=== PATIENT | male | born 1935 | race Caucasian/White ===

== ENCOUNTER → 2016-12-10 | Outpatient (CLI) | payer OTHER, MEDICARE | LOC: BHCLAF 10:45 | PROVIDERS: ATTEND Internal Medicine Cardiovascular Disease | DX: I35.0 Nonrheumatic aortic (valve) stenosis (principal); I10 Essential (primary) hypertension | CPT/HCPCS: 93306-PO ==

== ENCOUNTER 2016-12-27 08:36 | Day surgery (SDC) | payer OTHER, MEDICARE ==
[2016-12-27] MEDS ORDERED: BENZOCAINE UNIT DOSE SPRAY HURRICAINE MM ONE (08:38)
[2016-12-27] MEDS ORDERED: fentaNYL 100 MCG/2 ML INJ IVP ONE (08:38)
[2016-12-27] MEDS ORDERED: MIDAZOLAM 2 MG/2 ML VIAL IVP ONE (08:38)
[2016-12-27] MEDS ORDERED: NS 1,000 ML IV ONE (08:38)
[2016-12-27] MEDS ORDERED: MIDAZOLAM 2 MG/2 ML VIAL ONE (09:23)
[2016-12-27] MEDS ORDERED: fentaNYL 100 MCG/2 ML INJ ONE (09:23)
[2016-12-27] MEDS ORDERED: ATROPINE SULFATE 1 MG/10 ML SYR ONE (09:24)
--- NOTE | 2017-01-01 11:14 | ECHO ---
[id number] + + [address] : : [facility] [address] : : [phone] + Transesophageal Echocardiographic Report + --------+ :Name: JOHN JIMENEZ VStudy Date: 12/27/2016 09:45 AM : : Hospital Admission Number: [id number] Locat ion: CVC: :: 1935 Gender: Male : :Age: 81 yrs Race: WH : :Reason For Study: evaluate MR and TR : :History: MR and TR : + --------+ LV The left ventricle is normal in size and function. There is mild to moderate concentric left ventricular hypertrophy. Hypertrophied papillary muscles noted. RV The right ventricle is normal size. Atria Bi-atrial enlargement. No thrombus is detected in the left atrial appendage. Injection of contrast documented no interatrial shunt. Mitral Valve Mitral leaflets are redunadant and the posterior leaflet appears to prolapse into LA. Calcified mitral apparatus. The mitral regurgitant jet is eccentrically directed. There is moderate to severe mitral regurgitation. Aortic Valve The aortic valve is trileaflet. Mild-Moderate Aortic Valve Calcification. There is no aortic insufficiency. Pulmonic Valve The pulmonic valve is normal in structure and function. Mild pulmonic valvular regurgitation. Tricuspid Valve The tricuspid valve is normal in structure and function. There is moderate tricuspid regurgitation. Vessels Mild atherosclerotic plaque(s) in the ascending aorta. Pericardium There is no pericardial effusion. Conclusion A 2D transesophageal echocardiogram with Doppler and color flow Doppler was performed. A bubble study was performed without evidence of a interatrial shunt. The left ventricle is normal in size and function. There is mild to moderate concentric left ventricular hypertrophy. Hypertrophied papillary muscles noted. Bi-atrial enlargement. No thrombus is detected in the left atrial appendage. Injection of contrast documented no interatrial shunt. Mitral leaflets are redunadant and the posterior leaflet appears to prolapse into LA. There is moderate to severe mitral regurgitation. Mild pulmonic valvular regurgitation. There is moderate tricuspid regurgitation. Final Reading Physician: Meredith Stevens signed on 01/01/2017 11:12 AM Ordering Physician: Frank Wisdom Performed By: Frank Wisdom MD
== END 2016-12-27 12:05 | disposition home or self-care (01) ==
LOC: FCATH 08:36
PROVIDERS: ATTEND Internal Medicine Cardiovascular Disease
PROC: B245ZZ4 Ultrasonography of Left Heart, Transesophageal (ICD-10-PCS; principal; 2016-12-27)
DX: I34.0 Nonrheumatic mitral (valve) insufficiency (principal); I35.2 Nonrheumatic aortic (valve) stenosis with insufficiency; I07.1 Rheumatic tricuspid insufficiency; I71.4 Abdominal aortic aneurysm, without rupture; I25.10 Atherosclerotic heart disease of native coronary artery without angina pectoris; I10 Essential (primary) hypertension; R01.1 Cardiac murmur, unspecified; I27.2 Other secondary pulmonary hypertension; E78.5 Hyperlipidemia, unspecified; Z82.49 Family history of ischemic heart disease and other diseases of the circulatory system
CPT/HCPCS: J0461; J2250; J3010

== ENCOUNTER → 2017-01-21 | Outpatient (CLI) | payer OTHER, MEDICARE | LOC: BHFA 11:30 | PROVIDERS: ATTEND Internal Medicine Cardiovascular Disease | DX: R00.2 Palpitations (principal); R06.02 Shortness of breath; R07.9 Chest pain, unspecified ==

== ENCOUNTER 2017-03-07 07:49 | Day surgery (SDC) | payer OTHER, MEDICARE ==
[2017-03-07] MEDS ORDERED: ASPIRIN EC 325 MG TAB PO ONE (08:03)
[2017-03-07] MEDS ORDERED: FAMOTIDINE 20 MG TAB PO ONE (08:03)
[2017-03-07] MEDS ORDERED: NS 1,000 ML IV ONE (08:03)
[2017-03-07] MEDS ORDERED: DIAZEPAM 5 MG TAB PO ONE (08:03)
[2017-03-07] MEDS ORDERED: diphenhydrAMINE 25 MG CAP PO ONE (08:03)
[2017-03-07] MEDS ORDERED: LIDOCAINE 1% 30 ML SDV ONE (08:28)
[2017-03-07] MEDS ORDERED: IOPAMIDOL (ISOVUE 370) 100 ML BTL IV ONE (08:29)
[2017-03-07] MEDS ORDERED: MIDAZOLAM 2 MG/2 ML VIAL ONE (08:29)
[2017-03-07] MEDS ORDERED: fentaNYL 100 MCG/2 ML INJ ONE (08:29)
--- NOTE | 2017-03-07 08:29 | CPEKG ---
Heart Rate: 65 RR Interval: 923 P-R Interval: 172 QRSD Interval: 90 QT Interval: 408 QTC Interval: 425 P [place]: 52 QRS [place]: -2 T Wave [place]: 38 EKG Severity - ABNORMAL ECG - EKG Impression: SINUS RHYTHM EKG Impression: PROBABLE LEFT ATRIAL ABNORMALITY EKG Impression: PROBABLE LEFT VENTRICULAR HYPERTROPHY Electronically Signed By: Frank Wisdom 08-Mar-2017 12:43:40
[2017-03-07 08:39] LABS: % IMMATURE GRANULYOCYTES 0.2 % (0.0-1.1); ABSOLUTE IMMATURE GRANULOCYTES 0.01 10^3/uL (0.00-0.10); ADD DIFF? NO; ADD MORPH? NO; ADD SCAN? NO; ATYPICAL LYMPHOCYTE FLAG 60 (0-99); FRAGMENT RBC FLAG 0 (0-99); HEMATOCRIT 44.6 % (40.0-51.0); HEMOGLOBIN 15.8 g/dL (13.7-17.5); LEFT SHIFT FLG 0 (0-99); LIPEMIA HEMOLYSIS FLAG 90 (0-99); MEAN CELL HEMOGLOBIN 34.5 pg (27.9-34.1); MEAN CELL HEMOGLOBIN CONCENTR. 35.4 g/dL (32.4-36.7); MEAN CELL VOLUME 97.4 fL (81.5-99.8); MEAN PLATELET VOLUME 9.9 fL (8.7-11.7); PLATELET CLUMPS FLAG 0 (0-99); PLATELET COUNT 145 10^3/uL (150-400); RED BLOOD CELL COUNT 4.58 10^6/uL (4.40-6.38); RED CELL DISTRIBUTION WIDTH 13.2 % (11.5-15.2)
[2017-03-07 08:48] LABS: INR 1.01 (0.83-1.16); PROTIME(PATIENT) 13.2 SEC (12.0-15.0)
[2017-03-07 09:02] LABS: ANION GAP 9 mEq/L (8-16); CALCIUM 9.6 mg/dL (8.5-10.4); CARBON DIOXIDE 24 mEq/l (22-31); CHLORIDE 107 mEq/L (97-110); CHOLESTEROL 195 mg/dL (140-220); CHOLESTEROL/HDL RATIO 2.95 RATIO (1.00-4.97); GLOMERULAR FILTRATION RATE > 60; GLUCOSE 82 mg/dL (70-100); HIGH DENSITY LIPOPROTEIN 66 mg/dL (40-65); LDL/HDL RATIO 1.67 RATIO (1.00-3.64); LOW DENSITY LIPOPROTEIN 110 mg/dL (80-100); MAGNESIUM 2.1 mg/dL (1.6-2.3); NON-HIGH DENSITY LIPOPROTEIN 129 mg/dL (90-129); POTASSIUM 4.3 mEq/L (3.5-5.2); SODIUM 140 mEq/L (134-144); TRIGLYCERIDE 99 mg/dL (40-150); VERY LOW DENSITY LIPOPROTEINS 19 mg/dL (8-25)
[2017-03-07] MEDS ORDERED: ATROPINE SULFATE 1 MG/10 ML SYR IVP PRN (10:52)
[2017-03-07] MEDS ORDERED: OXYCODONE/APAP 5/325 TAB PO PRN (10:52)
[2017-03-07] MEDS ORDERED: ONDANSETRON 4 MG/2 ML VIAL IVP PRN (10:52)
[2017-03-07] MEDS ORDERED: HYDROCODONE/APAP 5/325 TAB PO PRN (10:52)
--- NOTE | 2017-03-07 10:57 | PDDXCAT ---
Diagnostic Cath Note - . Date: 03/07/17 Wedding Florist: Artis Indication: other (pending MVR/AVR surgery) - Procedure Access: right groin Procedure: left heart catheterization, coronary angiography, left ventriculogram , right heart catheterization - Materials Left Heart Cath size: 6F (long sheath was used after tortuosity noted to the venous system) Left Heart Cath materials: standard multipack (JL4, JR4, pigtail), Pal's R Right Heart Cath size: 7F (long sheath was used after tortuosity noted during RHC) Right Heart Cath materials: PWP catheter - Findings-Left Heart Catheterization LM: short, bifurcating into the LAD and LCX vessels. No critical CAD was noted. LAD: Smallish LAD with three diagonals. The second diag was the "principal" vessel, and only slightly smaller than the LAD. A small, 30% lesion was noted to the proximal vessel, just prior to the take off for the diags. Tortuosity was noted distally. LCX: Smallish vessel several small OMs prior to a principal OM2, which was equal in magnitude to the take off from LCX. No appreciable luminal irregularities were noted. RCA: Dominant vessel without luminal irregularities noted. This vessel supplied the PDA system. EDP: did not cross the AoV LVEF: Did not cross the AoV Wall motion: not assessed in this study - Findings-Right Heart Catheterization RA: 8/ RV: 39/3/11 PA: 37/16/24 PAOP: 16 AO: 131/64/93 CO: 3.89 CI: 2.23 Complications: none, but there was moderate tortuosity to the Estimated blood loss: <50ml Closure method: Angioseal Assessment: 81 y/o male with known valve pathology (mitral and aortic) and pending need to have valve surgery. There was moderate tortuosity to the venous system, and the RH cath needed to be exchanged given a kink noted to the catheter. There was no critical CAD noted in this study. We could not pass the catheter or wire through the AoV, and further, aggressive attempts to pass the catheter were abandoned. Plan: Would schedule patient to follow up with cardiology and CT (if scheduled). Patient will also need reassessment of dilation to the infrarenal aorta (2013 CT scan with some dilation <4 cm) noted. No complications were noted, and the patient did well today. We could not pass the AoV, but given the pathology, this was not unexpected. Intervention: none
== END 2017-03-07 15:00 | disposition home or self-care (01) ==
LOC: FCATH 07:49
PROVIDERS: ATTEND Internal Medicine Cardiovascular Disease
PROC: B2151ZZ Fluoroscopy of Left Heart using Low Osmolar Contrast (ICD-10-PCS; principal; 2017-03-07)
PROC: B2111ZZ Fluoroscopy of Multiple Coronary Arteries using Low Osmolar Contrast (ICD-10-PCS; principal; 2017-03-07)
PROC: 4A023N8 Measurement of Cardiac Sampling and Pressure, Bilateral, Percutaneous Approach (ICD-10-PCS; principal; 2017-03-07)
DX: I34.0 Nonrheumatic mitral (valve) insufficiency (principal); I35.9 Nonrheumatic aortic valve disorder, unspecified; I10 Essential (primary) hypertension
CPT/HCPCS: C1760; J1644; J2250; J3010; Q9967

== ENCOUNTER → 2017-04-04 | Outpatient (CLI) | payer OTHER, MEDICARE ==
[~2017-04-04] MED LIST: IOPAMIDOL (ISOVUE 370) 100 ML BTL IV ONE
== END ==
LOC: FIMAGING 12:37
PROVIDERS: ATTEND Internal Medicine Cardiovascular Disease
DX: Z03.89 Encounter for observation for other suspected diseases and conditions ruled out (principal)
CPT/HCPCS: 74175; Q9967

== ENCOUNTER → 2017-12-19 | Outpatient (CLI) | payer OTHER, MEDICARE | LOC: BHCLAF 14:45 | PROVIDERS: ATTEND Internal Medicine Cardiovascular Disease | DX: I05.9 Rheumatic mitral valve disease, unspecified (principal); I35.9 Nonrheumatic aortic valve disorder, unspecified; I25.10 Atherosclerotic heart disease of native coronary artery without angina pectoris | CPT/HCPCS: 93306-PO ==

== ENCOUNTER 2018-01-13 08:34 | Day surgery (SDC) | payer OTHER, MEDICARE ==
[2018-01-13] MEDS ORDERED: BENZOCAINE UNIT DOSE SPRAY HURRICAINE MM ONE (08:42)
[2018-01-13] MEDS ORDERED: fentaNYL 100 MCG/2 ML INJ IVP ONE (08:42)
[2018-01-13] MEDS ORDERED: MIDAZOLAM 2 MG/2 ML VIAL IVP ONE (08:42)
[2018-01-13] MEDS ORDERED: NS 500 ML IV ONE (08:42)
[2018-01-13] MEDS ORDERED: ATROPINE SULFATE 1 MG/10 ML SYR ONE (09:29)
--- NOTE | 2018-01-13 09:47 | PDHPUP ---
History & Physical Update H&P update statement: This history and physical update is based on an assessment of the patient which was completed after admission or registration (within 24 hours), but prior to the surgery/procedure. H&P update: H&P reviewed & patient examined, no change in patient's condition since H&P completed
--- NOTE | 2018-01-13 09:47 | PDPROPOC ---
Sedation Plan of Care Sedation Plan of Care: vital signs stable, mental status noted, patient educated of risks, benefits, alternatives, patient can tolerate sedation ASA Classification: ASA 1 Planned drugs: fentanyl, midazolam Mallampati Score: Class 1 Mallampati Reference Image: Patient passed 3-3-2 rule?: Yes
[2018-01-13 11:37] VITALS: BP 122/76; RESP 14; O2SAT 97
--- NOTE | 2018-01-13 11:47 | PDCARTEE ---
CAR MICHELLE CAR MICHELLE: PROCEDURE: MICHELLE FOR REASSESSMENT OF THE AORTIC AND MITRAL VALVES INDICATIONS: BETTER VISUALIZATION OF THE AORTIC AND MITRAL VALVE PATHOLOGY DETAILS: After consents were signed and patient placed on table on left side, the MICHELLE probe was placed without difficulty, and standard views were obtained. Light sedation with fentanyl and versed were used for facilitate comfort. Standard views were obtained. PRELIMINARY REPORT: Left ventricular systolic ejection fraction was normal (65%). There was severe mitral regurgitation noted with prolapsation of both leaflets. There is severe left atrial dilation noted. Moderate to severe aortic stenosis was also noted with moderate to severe sclerosis. Trace PI, moderate TR. RVSP was estimated to be 35-40 mm Hg. Surface echo images were also to be obtained to better assess the gradients though the aortic valve (patient's valve was off axis for the image that we were able to obtain).
--- NOTE | 2018-01-13 20:17 | ECHO ---
[email or web address] [address] [address] Main: [phone] Fax: Transesophageal Echocardiography Name: JOHN JIMENEZ MR#: [id number] Study Date: 01/13/2018 Study Time: 09:42 AM Date of : 1935 Age: 82 year(s) Height: ( ) Weight: ( ) BSA: Gender: Male Examination: MICHELLE Indication: as/mr Image Quality: Adequate Contrast: Requested by: Frank Wisdom Heart Rate: Rhythm: Normal sinus rhythm BP: 159 mmHg/98 mmHg Procedure Staff General Operator: Opal Leigh [facility] Reading Physician: Frank Wisdom Requesting Provider: MICHELLE Exam Details Conclusions: Normal size left ventricle. Moderate concentric LV hypertrophy. Normal global systolic LV function. Normal size right ventricle. The left atrium is severely dilated. No thrombus in left appendage. Trabeculation noted in AUTUMN.. The right atrium is severely dilated. Moderate mitral valve leaflet calcification is present. There is moderate thickening of the mitral valve leaflets. There is bileaflet mitral valve prolapse. Severe mitral valve regurgitation is present. There is flow reversal in the pulmonary veins consistent with significant mitral regurgitation. The aortic valve is tri-leaflet. Moderate aortic cusp calcification is present. Moderate calcific aortic valve stenosis. Mean aortic valve gradient 25. Mild aortic valve regurgitation is present. There is mild thickening of the tricuspid valve leaflets. Moderate to severe tricuspid valve regurgitation. Right ventricular systolic pressure measures 40-45mmHg. The pulmonary artery pressure is moderately increased. Mild pulmonic valve regurgitation is noted. No dilatation of the aorta. No pericardial effusion. Patient: JOHN JIMENEZ Study Date: 01/13/2018 Page 1 of 2 09:42 AM Measurements: Chambers Valvular Assessment AV/MV Valvular Assessment TV/PV Normal Normal Normal Name Value Range Name Value Range Name Value Range LVOTd 2.1 cm 2.1 cm mm AV Vmax: 3.04 m/s (1 m/s-1.7 TR Vmax: 2.97 mm/s ( - ) m/s) TR PGmax: 35 mmHg ( - ) AV maxP mmHg ( - ) AV meanP mmHg ( - ) MARGARITO (VTI): 1.1 cm ( - ) Additional Measurements: Findings: Left Ventricle: Normal size left ventricle. Moderate concentric LV hypertrophy. Normal global systolic LV function. No regional wall motion abnormality. Right Ventricle: Normal size right ventricle. Left Atrium: The left atrium is severely dilated. Previous bubble study 12/27/2016 showed no IAS shunt.. Left Atrial Appendage: No thrombus in left appendage. Trabeculation noted in AUTUMN.. Right Atrium: The right atrium is severely dilated. Mitral Valve: Moderate mitral valve leaflet calcification is present. There is moderate thickening of the mitral valve leaflets. There is bileaflet mitral valve prolapse. Severe mitral valve regurgitation is present. There is flow reversal in the pulmonary veins consistent with significant mitral regurgitation. Aortic Valve: The aortic valve is tri-leaflet. Moderate aortic cusp calcification is present. Moderate calcific aortic valve stenosis. Mean aortic valve gradient 25. Mild aortic valve regurgitation is present. Blood pressure when AV gradients obtained had dropped to 127/79 mmHg. Tricuspid Valve: There is mild thickening of the tricuspid valve leaflets. Moderate to severe tricuspid valve regurgitation. Right ventricular systolic pressure measures 40-45mmHg. The pulmonary artery pressure is moderately increased. Pulmonic Valve: The pulmonic valve is normal in appearance. Mild pulmonic valve regurgitation is noted. Aorta: No dilatation of the aorta. Pericardium: No pericardial effusion. l1n (No Signature Object) Patient: JOHN JIMENEZ Study Date: 01/13/2018 Page 2 of 2 09:42 AM [id number]
== END 2018-01-13 12:00 | disposition home or self-care (01) ==
LOC: FCATH 08:34
PROVIDERS: ATTEND Internal Medicine Cardiovascular Disease
PROC: B245ZZ4 Ultrasonography of Left Heart, Transesophageal (ICD-10-PCS; principal; 2018-01-13)
DX: I35.2 Nonrheumatic aortic (valve) stenosis with insufficiency (principal); I34.1 Nonrheumatic mitral (valve) prolapse; I34.0 Nonrheumatic mitral (valve) insufficiency; I36.1 Nonrheumatic tricuspid (valve) insufficiency; I25.10 Atherosclerotic heart disease of native coronary artery without angina pectoris; I10 Essential (primary) hypertension; I71.4 Abdominal aortic aneurysm, without rupture; E78.5 Hyperlipidemia, unspecified; Z82.49 Family history of ischemic heart disease and other diseases of the circulatory system
CPT/HCPCS: J0461; J2250; J3010

== ENCOUNTER → 2018-07-21 | Outpatient (CLI) | payer OTHER, MEDICARE | LOC: FCPNEURO 20:00 | PROVIDERS: ATTEND Student in an Organized Health Care Education/Training Program | DX: G47.33 Obstructive sleep apnea (adult) (pediatric) (principal); G47.52 REM sleep behavior disorder ==

== ENCOUNTER 2018-12-26 17:01 | Inpatient (IN) | payer OTHER, MEDICARE ==
--- NOTE | 2018-12-26 17:39 | EDPHY ---
H & P Stated Complaint: cough Time Seen by Provider: 12/26/18 17:38 HPI/ROS: CHIEF COMPLAINT: Worsening cough and dyspnea HISTORY OF PRESENT ILLNESS: The patient is referred to the emergency department for evaluation of worsening cough and dyspnea. The patient is status post TAVR and mitral clip. Patient reports he has been having symptoms of cough and dyspnea for the past 2 months. He reports a clear productive cough. He denies fever. Over the past week his symptoms have worsened. He saw his primary care provider who ordered a chest x-ray which demonstrated congestive heart failure. She consulted with Cardiology and recommended admission to the hospital for further evaluation. The patient denies any asymmetric calf pain or swelling. He has noticed some pedal edema. He denies significant weight gain. REVIEW OF SYSTEMS: A comprehensive 10 point review of systems is otherwise negative aside from elements mentioned in the history of present illness. Source: Patient Exam Limitations: No limitations - Personal History Current Tetanus/Diphtheria Vaccine: Unsure Current Tetanus Diphtheria and Acellular Pertussis (TDAP): Unsure - Medical/Surgical History Hx Asthma: Yes Hx Chronic Respiratory Disease: No Hx Diabetes: No Hx Cardiac Disease: Yes Hx Renal Disease: No Hx Cirrhosis: No Hx Alcoholism: No Hx HIV/AIDS: No Hx Splenectomy or Spleen Trauma: No Other PMH: CHF, asthma, mitral clips, TAVR, appy, tonsilectomy, ELIEZER knee surgery , diverticulosis - Social History Smoking Status: Former smoker - Physical Exam Exam: General Appearance: Alert, no distress Eyes: Pupils equal and round no pallor or injection ENT, Mouth: Mucous membranes moist Respiratory: Rales noted bilateral lower lobes Cardiovascular: Regular rate and rhythm Gastrointestinal: Abdomen is soft and nontender, no masses, bowel sounds normal Neurological: 5/5 strength noted all 4 extremities Skin: Warm and dry, no rashes Musculoskeletal: Neck is supple nontender Extremities: No significant edema appreciated Constitutional: Initial Vital Signs Temperature (C) 36.4 C 12/26/18 17:14 Heart Rate 74 12/26/18 17:14 Respiratory Rate 16 12/26/18 17:14 Blood Pressure 127/62 H 12/26/18 17:14 O2 Sat (%) 92 12/26/18 17:14 O2 Delivery Mode Room Air Allergies/Adverse Reactions: erythromycin base Allergy (Verified 12/26/18 17:12) Home Medications: Medication Instructions Recorded Aspirin [Aspirin 81mg (*)] 81 mg PO HS 12/27/16 Calcium Carbonate [Oyster Shell 500 mg PO HS 12/27/16 Calcium 500 mg (*)] Cholecalciferol Vit D3 [Vitamin D3 1,000 units PO HS 12/27/16 (*)] Herbals/Supplements -Info Only 1 ea PO DAILY 12/27/16 Indomethacin [Indocin 25 mg (*)] 25 mg PO Q8HRS PRN 12/27/16 Lisinopril [Zestril 20 mg (*)] 20 mg PO HS 12/27/16 Magnesium Oxide [Magnesium Oxide 400 mg PO HS 12/27/16 400 mg (*)] Melatonin [Melatonin 3 MG (*)] 3 mg PO HS 12/27/16 Multivitamins [Multivitamin (*)] 1 each PO HS 12/27/16 Niacin [Niacin 500 mg (*)] 500 mg PO HS 12/27/16 [place]-3 Fatty Acids [Fish Oil 1000 3,000 mg PO HS 12/27/16 mg (*)] Medical Decision Making - Diagnostics EKG Interpretation: EKG: Complete interpretation has been separately recorded in the [facility] archive. Summary impression: Sinus rhythm, rate 68, ventricular trigeminy Imaging Results: Chest x-ray PA lateral: Images reviewed from study performed earlier today demonstrates infiltrates consistent with congestive heart failure versus pneumonia ED Course/Re-evaluation: The patient presents to the ED with worsening dyspnea over the past several months. The patient is status post TAVR and mitral clip. Patient is noted to be mildly hypoxemic. He is not tachycardic or febrile. Patient will be admitted to the hospital for further evaluation of his dyspnea. The patient has no leukocytosis, fever or change in the color of his sputum. He has an elevated BNP. Given his history of valvular heart disease I favor worsening chronic CHF as the etiology of his dyspnea. A respiratory pathogen panel has been ordered. Consultation was made with Dr. Barraza from the hospitalist service who will admit the patient this evening. Differential Diagnosis: Differential diagnosis considered includes asthma, bronchitis, pneumonia, congestive heart failure - Data Points Laboratory Results: Laboratory Results 12/26/18 17:52 12/26/18 17:52 12/26/18 12/26/18 12/26/18 17:58 17:52 17:52 WBC RBC Hgb Hct MCV MCH MCHC RDW Plt Count MPV Neut % (Auto) Lymph % (Auto) [place] % (Auto) Eos % (Auto) Baso % (Auto) Nucleat RBC Rel Count Absolute Neuts (auto) Absolute Lymphs (auto) Absolute Monos (auto) Absolute Eos (auto) Absolute Basos (auto) Absolute Nucleated RBC Immature Gran % Immature Gran # PT Pending INR Pending Sodium 137 mEq/L mEq/L (135-145) Potassium 4.3 mEq/L mEq/L (3.5-5.2) Chloride 107 mEq/L mEq/L (97-110) Carbon Dioxide 23 mEq/l mEq/l (22-31) Anion Gap 7 mEq/L mEq/L (6-14) BUN 35 mg/dL H mg/dL (7-23) Creatinine 1.3 mg/dL mg/dL (0.7-1.3) Estimated GFR 53 Glucose 140 mg/dL H mg/dL (70-100) Calcium 9.6 mg/dL mg/dL (8.5-10.4) POC Troponin I 0.01 ng/mL ng/mL (0.00-0.08) NT-Pro-B Natriuret Pep 4840 pg/mL H pg/mL (0-450) 12/26/18 17:52 WBC 6.80 10^3/uL 10^3/uL (3.80-9.50) RBC 4.84 10^6/uL 10^6/uL (4.40-6.38) Hgb 16.2 g/dL g/dL (13.7-17.5) Hct 48.9 % % (40.0-51.0) MCV 101.0 fL H fL (81.5-99.8) MCH 33.5 pg pg (27.9-34.1) MCHC 33.1 g/dL g/dL (32.4-36.7) RDW 14.2 % % (11.5-15.2) Plt Count 128 10^3/uL L 10^3/uL (150-400) MPV 11.3 fL fL (8.7-11.7) Neut % (Auto) 74.6 % H % (39.3-74.2) Lymph % (Auto) 15.1 % % (15.0-45.0) [place] % (Auto) 7.9 % % (4.5-13.0) Eos % (Auto) 1.5 % % (0.6-7.6) Baso % (Auto) 0.6 % % (0.3-1.7) Nucleat RBC Rel Count 0.0 % % (0.0-0.2) Absolute Neuts (auto) 5.07 10^3/uL 10^3/uL (1.70-6.50) Absolute Lymphs (auto) 1.03 10^3/uL 10^3/uL (1.00-3.00) Absolute Monos (auto) 0.54 10^3/uL 10^3/uL (0.30-0.80) Absolute Eos (auto) 0.10 10^3/uL 10^3/uL (0.03-0.40) Absolute Basos (auto) 0.04 10^3/uL 10^3/uL (0.02-0.10) Absolute Nucleated RBC 0.00 10^3/uL 10^3/uL (0-0.01) Immature Gran % 0.3 % % (0.0-1.1) Immature Gran # 0.02 10^3/uL 10^3/uL (0.00-0.10) PT INR Sodium Potassium Chloride Carbon Dioxide Anion Gap BUN Creatinine Estimated GFR Glucose Calcium POC Troponin I NT-Pro-B Natriuret Pep Point of Care Test Results: Chemistry 12/26/18 17:58 POC Troponin I 0.01 ng/mL ng/mL (0.00-0.08) Departure - Departure Disposition: [facility] Acute Clinical Impression: Congestive heart failure Condition: Fair
--- NOTE | 2018-12-26 18:09 | CPEKG ---
Test Reason : OPEN Blood Pressure : / mmHG Vent. Rate : 068 BPM Atrial Rate : 068 BPM P-R Int : 169 ms QRS Dur : 095 ms QT Int : 417 ms P-R-T Axes : 038 033 025 degrees QTc Int : 444 ms Sinus rhythm Ventricular trigeminy Left atrial enlargement Confirmed by Santosh Mckee ([id number]) on 12/26/2018 6:09:36 PM Referred By: Santosh Mckee Confirmed By:Santosh Mckee
[2018-12-26 18:50] LABS: PLATELET COUNT 128 10^3/uL (150-400)
[2018-12-26 18:53] LABS: INR 1.06 (0.83-1.16)
[2018-12-26] MEDS ORDERED: MELATONIN 3 MG TAB PO SCH (21:00)
[2018-12-26] MEDS ORDERED: ACETAMINOPHEN 325 MG TAB PO PRN (21:20)
[2018-12-26] MEDS ORDERED: ALBUTEROL 3 ML DEYVIAL IH PRN (21:20)
[2018-12-26] MEDS ORDERED: ONDANSETRON 4 MG/2 ML VIAL IVP PRN (21:20)
[2018-12-26] MEDS ORDERED: FUROSEMIDE 20 MG/2 ML VIAL IVP ONE (21:20)
--- NOTE | 2018-12-26 21:37 | GHP ---
[f rep st] HISTORY AND PHYSICAL DATE OF ADMISSION: 12/26/2018 CHIEF COMPLAINT: Cough and worsening shortness of breath. HISTORY OF PRESENT ILLNESS: This is an 83-year-old male, with history of congestive heart failure, s tatus post mitral clip procedure in April of 2018, followed by spencer June of 2018. He was referred to the emergency department by his primary care provider due to worsening cough and shortness of allison ath. The patient states that his cough has been going on for 2 months, but has worsened over the pas t few days. He denies any fevers. He does have some lower extremity swelling. He has been complian t with his lisinopril but is not on any other medications other than indomethacin which he takes as n eeded for gout. PAST MEDICAL HISTORY: 1. Congestive heart failure. 2. Valvular heart disease/aortic regurgitation status post mitral clipping and TAVR done in June 29. 3. Appendectomy. 4. Tonsillectomy. 5. Bilateral knee arthroscopy. 6. Diverticulosis. 7. Gout. HOME MEDICATIONS: Reviewed. Refer to [place] for details. ALLERGIES: Erythromycin. SOCIAL HISTORY: The patient is a retired computer installer. He denies any tobacco or illicit drug u se. He drinks wine occasionally. FAMILY HISTORY: Reviewed and noncontributory. REVIEW OF SYSTEMS: Comprehensive 10-point review of systems was done and is negative, except for as mentioned in the HPI. PHYSICAL EXAM: VITAL SIGNS: Blood pressure 138/72, pulse of 72, respiratory rate 18, O2 saturation 94% on room air. Temperature afebrile. GENERAL: No acute distress. HEAD: Normocephalic, atraumat ic. EYES: PERRLA. Sclerae anicteric. MOUTH: Moist mucous membranes. NECK: Supple. No lymphade nopathy. CARDIOVASCULAR: S1, S2. Positive JVD, has trace lower extremity edema. PULMONARY: Bilat eral rales, slightly increased respiratory effort, coughing. ABDOMEN: Soft, nontender, nondistended . No guarding or rebound tenderness. Normoactive bowel sounds. EXTREMITIES: No clubbing or cyanos is. NEURO: Cranial nerves 2-12 grossly intact. No focal motor or sensory deficits. SKIN: Clear. No rashes. DIAGNOSTICS: EKG, which I visualized and personally interpreted, shows sinus rhythm, rate 68 beats p er minute, with ventricular trigeminy and evidence for left atrial enlargement in V1. Respiratory PCR panel was negative. Chest x-ray that was done earlier today as an outpatient, under a different medical record number, wa s visualized and interpreted as consistent with pulmonary edema. WBC 6.8, hemoglobin 16.2, hematocrit 48.9, platelets 128. Sodium 137, potassium 4.3, chloride 107, B UN 35, creatinine 1.3. Glucose 140. BNP 4840. ASSESSMENT: This is an 83-year-old male with history of aortic regurgitation status post mitral clip in April 2018, followed by transcatheter aortic valve replacement in June 2018, presenting with cou gh, dyspnea on exertion, and swelling, consistent with acute on chronic systolic congestive heart silverio lure. PLAN: The patient will be placed on observation. Cardiology will be consulted. Will order a 1 time dose of Lasix 20 mg IV tonight. We will defer further diuretics to the rounding team in the morning . Will defer ordering an echocardiogram since he says his last echo was done just a couple of weeks ago. The patient requests to be full code status. /[id number]/MODL
[2018-12-26] MEDS: OMEGA-3 FATTY ACIDS 1,000 MG CAP PO SCH (21:54)
[2018-12-26] MEDS: NIACIN 500 MG TAB PO SCH (21:54)
[2018-12-26] MEDS: CHOLECALCIFEROL VIT D3 1,000 UNITS TAB PO SCH (21:54)
[2018-12-26] MEDS: MULTIVITAMINS 1 EACH TAB PO SCH (21:55)
[2018-12-26] MEDS: CALCIUM CARBONATE 500 MG TAB PO SCH (21:55)
[2018-12-26] MEDS: MAGNESIUM OXIDE 400 MG TAB PO SCH (21:56)
[2018-12-26] MEDS: ASPIRIN 81 MG CHEWABLE TAB PO SCH (21:56)
[2018-12-26] MEDS: LISINOPRIL 20 MG TAB PO SCH (21:56)
[2018-12-27 04:52] LABS: PLATELET COUNT 123 10^3/uL (150-400)
[2018-12-27] MEDS ORDERED: Herbals/Supplements -Info Only PO SCH (09:00)
[2018-12-27] MEDS ORDERED: FUROSEMIDE 20 MG/2 ML VIAL IVP SCH (11:45)
--- NOTE | 2018-12-27 12:09 | ASMTCMCOM ---
CM Note CM Note Notes: Pts case discussed in tx rounds. Pt is a robust 83 y/o man admitted for dyspnea and CHF. 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 Cards is following this case as well as transitional care. Pt w/ a hx of TAVR. Pt is currently diuresing. Pt should not have any d/c needs. No therapies ordered at this time. CM available for changes. Plan: Independent Date Signed: 12/27/2018 12:09 PM Electronically Signed By:CAPO Ring
--- NOTE | 2018-12-27 13:42 | HOSPPROG ---
Hospitalist Progress Note Assessment/Plan: 83yo M with history of valvular heart disease s/p gilmer-clip and TAVR in summer 2017 presents with worsening cough and shortness of breath found to have pulmonary edema, elevated BNP. 1. Acute on chronic valvular CHF: Severe MR, preserved LVEF. - Lasix 20mg IV BID, monitor I/Os - Afterload reduction with lisinopril - Cardiology following, appreciate assistance 2. Severe MR: Worsened after mitraclip - Cardiology alerting CT surgery. He follows with CT surgeon/cardologist in [place] as well. 3. FRANKO: Likely cardiorenal. - Monitor closely with diuresis, avoid nephrotoxins 4. Thrombocytopenia: Suspect passive congestion related to CHF. No s/s bleeding. Monitor. 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 Fluid and BP management as above. 6. REM sleep disorder: - Continue home melatonin 12mg and clonazepam 0.5mg qhs VTE ppx: LMWH Code: full Diet: low salt Dispo: Switch to inpatient for ongoing IV diuresis Subjective: Feeling better after dose of IV lasix. Still coughing while lying flat. No chest pain, leg swelling. Objective: Vital Signs Temp Pulse Resp BP Pulse Ox 37.1 C 67 16 121/70 H 96 12/27/18 12:00 12/27/18 12:00 12/27/18 12:00 12/27/18 12:00 12/27/18 12:00 Microbiology 12/26/18 18:16 Respiratory Panel (PCR) - Final Nasal, Sinus - Swab No Organism Detected By Pcr Laboratory Results 12/27/18 03:27 12/27/18 03:27 12/26/18 12/27/18 12/28/18 05:59 05:59 05:59 Intake Total 200 360 Output Total 775 Balance 200 -415 PT 14.0 SEC (12.0-15.0) 12/26/18 17:52 INR 1.06 (0.83-1.16) 12/26/18 17:52 - Physical Exam Constitutional: no apparent distress, appears nourished, not in pain Eyes: PERRL, anicteric sclera, EOMI Ears, Nose, Mouth, Throat: moist mucous membranes, hearing normal, ears appear normal, no oral mucosal ulcers Cardiovascular: regular rate and rhythym, no murmur, rub, or gallop, JVD, No edema Respiratory: no respiratory distress, inspiratory crackles Gastrointestinal: normoactive bowel sounds, soft, non-tender abdomen, no palpable masses Genitourinary: no bladder fullness, no bladder tenderness, no renal bruits Skin: no rashes or abrasions, no fluctuance, no induration Musculoskeletal: full muscle strength, no muscle tenderness, normal joint ROM Neurologic: AAOx3, sensation intact bilaterally Psychiatric: interacting appropriately, not anxious, not encephalopathic, thought process linear ICD10 Worksheet Patient Problems: Problems Problem Status Onset Chronic Disease Mgmt/Transitional Care Acute Congestive heart failure Acute
--- NOTE | 2018-12-27 15:54 | GCON ---
[f rep st] CONSULTATION CARDIOLOGY CONSULTATION DATE OF CONSULTATION: 12/27/2018 PRIMARY AUTOMATIC LUMP MAKING MACHINE TENDER: Dr. Frank Wisdom. CHIEF COMPLAINT: Heart failure and valvular heart disease. HISTORY OF PRESENT ILLNESS: We were asked by Dr. Amezcua to visit with the patient. The patient is a very pleasant 83-year-old male with a long history of valvular heart disease. He had aortic steno sis, mitral regurgitation, and tricuspid regurgitation. He does not have significant coronary diseas e. He has been adamant about avoiding cardiac surgery, if possible. In April of 2018, he had 2 mitral cl ips placed in [facility]. Initially, this was successful, but he has been left with mo bfqxzp-gj-srmdar residual mitral regurgitation. In June of 2018, he underwent TAVR with a Medtroni c 29 mm Evolut Pro prosthesis. He was seen in Cardiology Clinic at [facility] in October. A surveillance echocardiogram at that time revealed normal LV function, moderate perivalvular regurgitation of his TAVR, and ylaxtiug-dc-sw lala mitral regurgitation, along with moderate tricuspid regurgitation and estimated PA pressures in the 70s. Shortly after his return home, late October or early November, he developed an upper respiratory infe ction. Since that time, he has had progressive dyspnea and persistent cough. He has had anorexia, w eight gain, and lower extremity edema. He denies angina, palpitations, or syncope. He was seen by Dr. Mclean yesterday with findings on exam and chest x-ray consistent with heart failu re and, therefore, admitted for further evaluation and management. His creatinine is elevated at 1.3 , above baseline; today, it is 1.4. He is in florid heart failure. He reports ongoing dyspnea. He has been started on IV Lasix. REVIEW OF SYSTEMS: A full 10-point review of systems was performed and is negative except for that w hich is outlined in his present illness. ALLERGIES: Erythromycin. PAST MEDICAL HISTORY: 1. Valvular heart disease, as detailed above, with history of TAVR and mitral clip at [place], [place]. 2. Pulmonary hypertension. 3. Sleep apnea, on CPAP. 4. Hypertension. 5. Gout. 6. Balance disorder. 7. History of appendectomy. 8. History of knee surgery. OUTPATIENT MEDICATIONS: Aspirin 81 mg daily, calcium, vitamin D3, Indocin p.r.n., Zestril 20 mg luis a y, magnesium, melatonin, multivitamin, niacin, omega-3 fatty acids. SOCIAL HISTORY: The patient is . His is at the bedside. He does not smoke cigarettes. He drinks alcohol occasionally. He is an mine engineer. FAMILY HISTORY: Not applicable to the current case. PHYSICAL EXAM: VITAL SIGNS: Blood pressure 121/70, heart rate 67, oxygen saturation 96% on room air , respiratory rate 16. He is afebrile. GENERAL: Dyspneic, mildly ill-appearing older male. He is speaking in 2-word sentences. HEENT: Sclerae clear, free of jaundice. Mucous membranes are moist. Dentition is normal. Normocephalic, atraumatic. CARDIOVASCULAR: JVP is to the angle of the jaw wi th positive hepatojugular reflux. Regular rhythm with frequent ectopy. 2/6 systolic ejection murmur at the base that is early peaking, 2/4 holodiastolic murmur at the left lower sternal border, 2/6 ho losystolic murmur at the left lower sternal border, and 2/6 harsh holosystolic murmur at the apex wit h radiation to the axilla. LUNGS: Bibasilar rales without wheezes or rhonchi. ABDOMEN: Distended. Positive HJR. No masses or hepatosplenomegaly. EXTREMITIES: Warm and well perfused with stigmata of chronic venous insufficiency. 1+ ankle edema bilaterally. NEUROLOGIC: Alert and oriented x3 wi thout gross focal neurologic deficits. Appropriate mood and affect. LABORATORY DATA: CBC is normal, except for platelets of 123. INR 1.1. Sodium 138, potassium 4.5, c hloride 109, bicarb 20, BUN 37, creatinine 1.4 up from a baseline of 1. BNP is 4840. Troponin negat lilliana. LDL cholesterol was 110 two years ago. EKG reviewed by me, shows sinus rhythm and PVCs. Chest x-ray reviewed by me, shows 2 mitral clips, TAVR. Heart failure. Echocardiogram is pending. ASSESSMENT AND PLAN: 83-year-old male with multivalvular heart disease, status post transcatheter ao rtic-valve replacement and 2 mitral clips in 2018, at [facility]. He now presents with florid hear t failure and residual hhnewxzy-hf-nchwbg mitral regurgitation, moderate aortic regurgitation, and aleena luciano xnyawpwp-my-jnzeqj tricuspid regurgitation. I had a long discussion with the patient and his wi fe today about the need for cardiothoracic surgery consultation. The patient is still anxious to kendrick id surgery on multiple valves, but understands that his mitral valve will require surgery if he wishe s to improve his prognosis from heart failure. I will ask Dr. Buzz Ly to visit with the patient bhavik cui he is here in the hospital. Review echo when available. 1. Valvar heart disease: As above. Cardiothoracic surgery consultation. Agree with diuresis. Agr ee with blood pressure management. 2. Heart failure: Last ejection fraction a month ago showed preserved left ventricular systolic fun ction. Repeat echo now. Diuresis and wusvyhggeqc-ejejeoqvek-gfwmek inhibitor. No indications for b eta-karen are present, unless his ejection fraction has fallen. 3. Pulmonary hypertension: Likely related to his valvular disease. He is also on continuous positi ve airway pressure. 4. Hypertension: Currently well controlled. 5. Acute renal insufficiency: May be related to poor forward flow from his heart failure. Watch ca refully in the setting of diuresis. Thank you for allowing us to participate in the patient's care. We will follow with you. /[id number]/MODL
[2018-12-27] MEDS: FUROSEMIDE 20 MG/2 ML VIAL IVP SCH (15:57)
--- NOTE | 2018-12-27 17:09 | ECHO ---
[email or web address] [address] Main: [phone] Fax: Transthoracic Echocardiogram Name: JOHN JIMENEZ MR#: [id number] Study Date: 12/27/2018 Study Time: 02:58 PM Date of : 1935 Age: 83 year(s) Height: 172.7 cm (68 in.) Weight: 62.6 kg (138 lb.) BSA: 1.75 m2 Gender: Male Examination: Echo Indication: hx TAVR/MitraClip x 2 (at [place], [place]) CHF Image Quality: Fair Contrast: Requested by: Carmen Reyes BP: 121 mmHg/70 mmHg Heart Rate: Rhythm: Indication: hx TAVR/MitraClip x 2 (at [place], [place]) CHF Procedure Staff Stemming Machine Operator: Meryl Beatty [facility] Reading Physician: Carmen Reyes MD Requesting Provider: Conclusions: Normal size left ventricle. Normal global systolic LV function. The ejection fraction is estimated to be 60-65 %. No regional wall motion abnormality. Normal size right ventricle. Normal RV function. The left atrium is severely dilated. Left to right shunt from the transseptal puncture.. The right atrium is mildly dilated. Severe mitral valve regurgitation is present. 2 MitraClips on the AML and PML. MV max PG is 17mmHG. MV mean PG is 8mmHG.. 29 mm Medtronic Evolut Pro Core valve in place. AV max PG is 13mmHG. AV mean PG is 7mmHG. Moderate perivalvular regurgitation. The pulmonary artery pressure is moderately to severely increased. RVSP is 61-66mmHG.. Mild pulmonic valve regurgitation is noted. No pericardial effusion. Left side pleural effusion. Compared with MICHELLE 12/2017 TAVR and MitraClips now in place Measurements: Chambers Valvular Assessment AV/MV Valvular Assessment TV/PV Normal Normal Normal Name Value Range Name Value Range Name Value Range IVSd (2D): 0.9 cm (0.6 cm-1.1 AV Vmax: 1.80 m/s (1 m/s-1.7 TR Vmax: 3.74 mm/s ( - ) cm) m/s) TR PGmax: 56 mmHg ( - ) LVDd (2D): 5.3 cm (4.2 cm-5.9 AV meanP mmHg ( - ) syst. PAP: 61 mmHg ( - ) cm) MARGARITO (VTI): 1.3 cm ( - ) MV E Vmax: 2.28 m/s ( - ) Patient: JOHN JIMENEZ Study Date: 12/27/2018 Page 1 of 2 02:58 PM LVDs (2D): 2.6 cm (2.1 cm-4 MV A Vmax: 1.53 m/s ( - ) cm) MV E/A: 1.49 ( - ) LVPWd (2D): 0.9 cm (0.6 cm-1 MV meanP mmHg ( - ) cm) MV PHT: 0.141 s ( - ) LVOTd 1.8 cm 1.8 cm mm MVA (Vmax): 0.7 m/s ( - ) EF Range: 60-65 % MVA (PHT): 1.6 s ( - ) Continued Measurements: Chambers Valvular Assessment AV/MV Valvular Assessment TV/PV Name Value Name Value Name Value LADs: 4.8 cm MV VTI: 73.60 cm CVP (est.): 5 mmHg LADs Lon.5 cm LA Area: 36.0 cm2 LA Volume: 120 ml LA Volume Index: 68.6 ml/m2 Additional Vessels Name Value Ao Ascendin.6 cm Findings: Left Ventricle: Normal size left ventricle. No LV hypertrophy. Normal global systolic LV function. The ejection fraction is estimated to be 60-65 %. No regional wall motion abnormality. Right Ventricle: Normal size right ventricle. Normal RV function. Left Atrium: The left atrium is severely dilated. Left to right shunt from the transseptal puncture.. Right Atrium: The right atrium is mildly dilated. Mitral Valve: Severe mitral valve regurgitation is present. 2 MitraClips on the AML and PML. MV max PG is 17mmHG. MV mean PG is 8mmHG.. Aortic Valve: 29 mm Medtronic Evolut Pro Core valve in place. AV max PG is 13mmHG. AV mean PG is 7mmHG. Moderate perivalvular regurgitation. Tricuspid Valve: The tricuspid valve is normal in appearance and function. Moderate tricuspid regurgitation is present. The pulmonary artery pressure is moderately to severely increased. RVSP is 61-66mmHG.. Pulmonic Valve: The pulmonic valve is normal in appearance and function. Mild pulmonic valve regurgitation is noted. Aorta: The aorta is normal. Pericardium: No pericardial effusion. Left side pleural effusion. (No Signature Object) Patient: JOHN JIMENEZ Study Date: 12/27/2018 Page 2 of 2 02:58 PM [id number]
[2018-12-27] MEDS ORDERED: ENOXAPARIN 40 MG/0.4 ML SYR SC SCH (17:30)
[2018-12-27] MEDS: CHOLECALCIFEROL VIT D3 1,000 UNITS TAB PO SCH (21:01)
[2018-12-27] MEDS: ASPIRIN 81 MG CHEWABLE TAB PO SCH (21:02)
[2018-12-27] MEDS: MELATONIN 3 MG TAB PO SCH (21:02)
[2018-12-27] MEDS: LISINOPRIL 20 MG TAB PO SCH (21:02)
[2018-12-27] MEDS: clonazePAM 0.5 MG TAB PO SCH (21:02)
[2018-12-27] MEDS: MULTIVITAMINS 1 EACH TAB PO SCH (21:02)
[2018-12-27] MEDS: MAGNESIUM OXIDE 400 MG TAB PO SCH (21:02)
[2018-12-27] MEDS: CALCIUM CARBONATE 500 MG TAB PO SCH (21:02)
[2018-12-27] MEDS: OMEGA-3 FATTY ACIDS 1,000 MG CAP PO SCH (21:02)
[2018-12-27] MEDS: NIACIN 500 MG TAB PO SCH (21:04)
--- NOTE | 2018-12-27 22:33 | PDMN ---
Medical Necessity Medical necessity: Pt meets IP criteria as of 12/27/2018 per and FORREST M-190 ( heart failure); los > 2 mn for ongoing tx and management of acute on chronic valvular CHF with pulmonary HTN as well as severe mitral regurgitation and acute kidney injury; requiring cardiology consultation, close monitoring of labs , and IV diuretics
[2018-12-28] MEDS: ENOXAPARIN 30 MG/0.3 ML SYR SC SCH (08:31)
[2018-12-28] MEDS: FUROSEMIDE 20 MG/2 ML VIAL IVP SCH (08:31)
--- NOTE | 2018-12-28 09:35 | PDCARPN ---
Cardiology Progress Note Assessment/Plan: Assessment/plan: 83-year-old male with valvular heart disease. In April 2018 he had [address] [facility] in [place]. In June 2018 he had a 29 mm Medtronic evolut Pro TAVR. Since then he has had progressive mitral regurgitation, now severe as well as development of moderate perivalvular aortic regurgitation and moderate tricuspid regurgitation with pulmonary hypertension. He was admitted on December 26 with heart failure and acute renal failure. He has diuresed fairly well but his creatinine has increased. In 1. Valvular heart disease. Primary problem is indeed severe mitral regurgitation. Long discussion with the patient, his , and review of the case with Dr. Mateus Ly, who has seen the patient in consultation. Ongoing consideration for robotic mitral valve replacement without intervention on the aortic or tricuspid valve. It is possible that with resolution of mitral regurgitation, improvement in pulmonary pressures, his tricuspid regurgitation may improve. AR is only moderate with no residual aortic stenosis. Ejection fraction remains normal. The patient understands that with out intervention on the mitral valve he will likely suffer repeated bouts of heart failure. He is willing to proceed. He will need a MICHELLE. He does have reports and the CD of the CT angiogram done in [place] which we can review. Based on his report it sounds like he did not have significant coronary disease. 2. Heart failure: Improved with IV Lasix. Will hold 2nd dose of Lasix today given his rising creatinine. 3. Acute renal failure: Likely a combination of diuresis and poor forward flow related to his diastolic heart failure and severe mitral regurgitation. Hold Lasix this afternoon and repeat electrolytes in the morning. 4. Pulmonary hypertension: Likely due to his left-sided valvular heart disease. He is also on CPAP. This will hopefully improve with mitral valve replacement. 5. 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 Will ask Dr. Ly if this can be closed at the time of mitral valve surgery. 12/28/18 09:31 Subjective: Tanmay feels better. He was able to lie flat last night without coughing. Significant urine yesterday, this has dropped off this morning. Reviewed/Discussed With: other (Dr. Ly) Objective: Vital Signs (8 Hrs) Temp Pulse Resp BP Pulse Ox 12/28/18 03:53 36.3 C 54 L 16 106/64 90 L Intake/Output (24 Hrs) 12/27/18 12/28/18 12/29/18 05:59 05:59 05:59 Intake Total 550 Output Total 1525 Balance -975 Intake: Oral (ml) 550 IV Intake (ml) 0 Output: Urine (ml) 1525 Urinal 1525 Other: Weight 59.1 kg No acute distress. JVP 12 cm of water. Regular rate and rhythm with 2/6 early peaking systolic ejection murmur at the base. 2/4 holodiastolic murmur at the left lower sternal border. 3/6 harsh holosystolic murmur at the apex. No S3. Improved rales at the left base. Right rales have resolved. Improved and now trace bilateral ankle edema Result Diagrams: 12/27/18 03:27 12/28/18 03:19 Telemetry: Sinus rhythm with PVCs Echocardiogram: Personally reviewed. Please see full report. Normal LV ejection fraction. Severe mitral regurgitation. No mitral stenosis. Moderate perivalvular leak around TAVR. Normal gradients across the TAVR. Moderate tricuspid regurgitation with estimated pulmonary artery systolic pressure of 66 ICD10 Worksheet Patient Problems: Problems Problem Status Onset Chronic Disease Mgmt/Transitional Care Acute Congestive heart failure Acute
--- NOTE | 2018-12-28 11:47 | HOSPPROG ---
Hospitalist Progress Note Assessment/Plan: 83yo M with history of valvular heart disease s/p gilmer-clip and TAVR in summer 2017 presents with worsening cough and shortness of breath found to have pulmonary edema, elevated BNP. 1. Acute on chronic diastolic CHF: Related to valvular heart disease. - Lasix 20mg x1 today, monitor I/Os, lytes - Afterload reduction with lisinopril - Cardiology following, appreciate assistance 2. Severe MR: Worsened after mitraclip. He follows with CT surgeon/cardologist in [place] as well. - CT surgery consulted, plan for MICHELLE in AM. Consideration for MV repair while here 3. FRANKO: Cr slightly up with diuresis - Holding PM dose of lasix - Monitor closely, avoid nephrotoxins 4. Thrombocytopenia: Suspect passive congestion related to CHF. No s/s bleeding. Monitor. 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 Fluid and BP management as above. 6. REM sleep disorder: - Continue home melatonin 12mg and clonazepam 0.5mg qhs VTE ppx: LMWH Code: full Diet: low salt Dispo: Remain inpatient for ongoing IV diuresis, need for MICHELLE and possible procedure on MV. Subjective: Feeling well. Peeing less with lasix this AM. Able to lie flat. No chest pain. Objective: Vital Signs Temp Pulse Resp BP Pulse Ox 36.3 C 60 15 91/55 L 95 12/28/18 03:53 12/28/18 11:06 12/28/18 11:06 12/28/18 11:06 12/28/18 11:06 Laboratory Results 12/28/18 03:19 12/27/18 12/28/18 12/29/18 05:59 05:59 05:59 Intake Total 550 Output Total 1525 Balance -975 PT 14.0 SEC (12.0-15.0) 12/26/18 17:52 INR 1.06 (0.83-1.16) 12/26/18 17:52 - Physical Exam Constitutional: no apparent distress, appears nourished, not in pain Eyes: PERRL, anicteric sclera, EOMI Ears, Nose, Mouth, Throat: moist mucous membranes, hearing normal, ears appear normal, no oral mucosal ulcers Cardiovascular: regular rate and rhythym, systolic murmur, edema (trace at ankles), No JVD Respiratory: no respiratory distress, reduced air movement, inspiratory crackles (improving) Gastrointestinal: normoactive bowel sounds, soft, non-tender abdomen, no palpable masses Genitourinary: no bladder fullness, no bladder tenderness, no renal bruits Skin: no rashes or abrasions, no fluctuance, no induration Musculoskeletal: full muscle strength, no muscle tenderness, normal joint ROM Neurologic: AAOx3, sensation intact bilaterally Psychiatric: interacting appropriately, not anxious, not encephalopathic, thought process linear ICD10 Worksheet Patient Problems: Problems Problem Status Onset Chronic Disease Mgmt/Transitional Care Acute Congestive heart failure Acute
--- NOTE | 2018-12-28 11:58 | SOAPPROG ---
JASPER Progress Note Assessment/Plan: Assessment: Florid CHF in elderly frail gentleman. Mitral stenosis is likely the culprit lesion. Declining renal function is noted Large pleural effusion noted on echo. He is at prohibitive risk for ANY surgery at this time but robotic mitral could be considered if CHF can be successfully treated and renal function stabilized. This would still considered relatively high risk due to his decline He would need a CT angiogram prior to this (likely >100ml contrast) and this should not be done until CHF and renal function are optimized. Plan: MICHELLE to further assess TAVR valve PVL Agressive diuesis for CHF. Monitor kidney function. Consider thoracentesis to optimize pulmonary function in the interim Consider inotropic therapy to support heart function with dobutamine or milrinone during diuresis. Physical therapy to avoid further deconditioning. Reassessment next week as to candidacy for surgery and potential timing. 12/28/18 11:59 Subjective: Asked to see this patient for surgical opinion regarding muti- valvular heart disease and CHF He has a TAVR Evolut with mild to moderate PVL, two mitraclips resulting in moderate/severe mitral regurg and stenosis, there is pulmonary HTN (70s) and at least modeate TR. Pt has asked if he could have a robotic mitral replacement Objective: Vital Signs Temp Pulse Resp BP Pulse Ox 36.3 C 60 15 91/55 L 95 12/28/18 03:53 12/28/18 11:06 12/28/18 11:06 12/28/18 11:06 12/28/18 11:06 Laboratory Results 12/28/18 03:19 12/27/18 12/28/18 12/29/18 05:59 05:59 05:59 Intake Total 550 Output Total 1525 900 Balance -975 -900 PT 14.0 SEC (12.0-15.0) 12/26/18 17:52 INR 1.06 (0.83-1.16) 12/26/18 17:52 Dyspnea at rest in noted. JVD is present Echo reviewed with Dr. Reyes ICD10 Worksheet Patient Problems: Problems Problem Status Onset Chronic Disease Mgmt/Transitional Care Acute Congestive heart failure Acute
[2018-12-28] MEDS: PSYLLIUM METAMUCIL 1 PKT PO SCH (13:26)
[2018-12-28] MEDS: OMEGA-3 FATTY ACIDS 1,000 MG CAP PO SCH (22:15)
[2018-12-28] MEDS: MELATONIN 3 MG TAB PO SCH (22:20)
[2018-12-28] MEDS: CALCIUM CARBONATE 500 MG TAB PO SCH (22:21)
[2018-12-28] MEDS: MULTIVITAMINS 1 EACH TAB PO SCH (22:21)
[2018-12-28] MEDS: MAGNESIUM OXIDE 400 MG TAB PO SCH (22:22)
[2018-12-28] MEDS: CHOLECALCIFEROL VIT D3 1,000 UNITS TAB PO SCH (22:22)
[2018-12-28] MEDS: ASPIRIN 81 MG CHEWABLE TAB PO SCH (22:22)
[2018-12-28] MEDS: LISINOPRIL 20 MG TAB PO SCH (22:23)
[2018-12-28] MEDS: clonazePAM 0.5 MG TAB PO SCH (22:23)
[2018-12-28] MEDS: NIACIN 500 MG TAB PO SCH (23:52)
--- NOTE | 2018-12-29 08:22 | HOSPPROG ---
Hospitalist Progress Note Assessment/Plan: #Severe MR/mod MS: CT surgery to determine plan for valve replacement. MICHELLE today #FRANKO: due to overdiuresis, Cr improved today #Pulm HTN: cont PO Lasix #VT: 11-beat today. K/Mg at goal #Decompensated diastolic HF: now on PO lasix, BP controlled #DVT ppx: Lovenox #Disp: inpatient admission for monitored diuresis, telemetry Subjective: no chest pain or dizziness Objective: Vital Signs Temp Pulse Resp BP Pulse Ox 36.6 C 65 16 122/70 H 94 12/29/18 06:28 12/29/18 06:28 12/29/18 06:28 12/29/18 06:28 12/29/18 06:28 Laboratory Results 12/29/18 06:05 12/28/18 12/29/18 12/30/18 05:59 05:59 05:59 Intake Total 550 400 100 Output Total 1525 1375 300 Balance -975 -975 -200 PT 14.0 SEC (12.0-15.0) 12/26/18 17:52 INR 1.06 (0.83-1.16) 12/26/18 17:52 - Time Spent With Patient Time Spent with Patient: greater than 35 minutes Time Spent with Patient: Greater than 35 minutes spent on this patients care, greater than 50% of time spent counseling, educating, and coordinating care regarding the above mentioned plan. - Physical Exam Constitutional: other (elderly, thin male) Ears, Nose, Mouth, Throat: moist mucous membranes Cardiovascular: regular rate and rhythym, edema (trace ankle edema), other ( holosytolic murmur) Gastrointestinal: normoactive bowel sounds Genitourinary: no bladder fullness Skin: warm Musculoskeletal: full muscle strength Neurologic: AAOx3, CN II-XII Intact ICD10 Worksheet Patient Problems: Problems Problem Status Onset Congestive heart failure Acute Chronic Disease Mgmt/Transitional Care Acute
[2018-12-29] MEDS ORDERED: PROTOCOL MAGNESIUM 1 DOSE IV PRN (09:21)
[2018-12-29] MEDS ORDERED: PROTOCOL POTASSIUM 1 DOSE MISC PRN (09:21)
--- NOTE | 2018-12-29 09:21 | PDCARPN ---
Cardiology Progress Note Assessment/Plan: Assessment/plan: 83-year-old male with valvular heart disease. In April 2018 he had 2 mitral clips at [facility] in [place]. In June 2018 he had a 29 mm Medtronic Evolut Pro TAVR. Since then he has had progressive mitral regurgitation, now severe as well as development of moderate perivalvular aortic regurgitation and moderate tricuspid regurgitation with pulmonary hypertension. He was admitted on December 26 with heart failure and acute renal failure. He has diuresed fairly well but his creatinine increased. Has been seen by Dr. Ly of CT surgery. 1. Valvular heart disease. Primary problem is indeed severe mitral regurgitation with moderate MS. Long discussion with the patient, his , and review of the case with Dr. Ly. Ongoing consideration for mitral valve replacement with or without AVR/TV repair. It is possible that with resolution of mitral regurgitation, improvement in pulmonary pressures, his tricuspid regurgitation may improve. AR is only moderate with no residual aortic stenosis. Ejection fraction remains normal. The patient understands that with out intervention on the mitral valve he will likely suffer repeated bouts of heart failure. Surgery on hold while his CHF and renal function stabilize. MICHELLE today. May need repeat CT cor angio (no sig CAD last year, per patient). 2. Heart failure: Normal EF. Improved with IV Lasix. Transition to oral lasix today. Repeat CXR; I don't think he will require thoracentesis. No indication for inotropic support. 3. Acute renal failure: Likely a combination of diuresis and poor forward flow related to his diastolic heart failure and severe mitral regurgitation. Improved today. Oral lasix. 4. VT: 11 beat run this morning. Replete electrolytes prn. Start low dose Toprol. 5. Pulmonary hypertension: Likely due to his left-sided valvular heart disease. He is also on CPAP, which he will wear while inpatient. This will hopefully improve with mitral valve replacement. 6. 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 Will ask Dr. Ly if this can be closed at the time of mitral valve surgery. 12/29/18 09:16 Subjective: Tanmay reports feeling quite a bit better. He is able to lay flat to sleep. Cough is much improved. No chest pain. No palpitations. Objective: Vital Signs (8 Hrs) Temp Pulse Resp BP Pulse Ox 12/29/18 06:28 36.6 C 65 16 122/70 H 94 Intake/Output (24 Hrs) 12/28/18 12/29/18 12/30/18 05:59 05:59 05:59 Intake Total 550 400 100 Output Total 1525 1375 300 Balance -975 -975 -200 Intake: Oral (ml) 550 400 100 IV Intake (ml) 0 0 Output: Urine (ml) 1525 1375 300 Urinal 1525 1375 300 Other: Weight 59.1 kg 58.967 kg Intake Quantity Yes Sufficient Number of Voids Urinal 2 No acute distress. JVP approximately 12 cm water. Regular rhythm with occasional ectopy. 2/6 early peaking systolic ejection murmur at the base. 2/4 holodiastolic murmur at the left lower sternal border. Harsh 3/6 holosystolic murmur at the apex. No gallop. Focal rales left base. No wheezes or rhonchi Trace bilateral ankle edema Result Diagrams: 12/27/18 03:27 12/29/18 06:05 Telemetry: NSR with PVCs. one 11 beat run of VT this morning, asymptomatic. ICD10 Worksheet Patient Problems: Problems Problem Status Onset Chronic Disease Mgmt/Transitional Care Acute Congestive heart failure Acute
--- NOTE | 2018-12-29 10:01 | POSTANESTH ---
Post Anesthetic Evaluation Cardiovascular Status: Normal, Stable Respiratory Status: Normal, Stable Level of Consciousness/Mental Status: Can Participate in Eval, Moderately Sleepy Pain Control: Adequate, Prn Tx Ordered Nausea/Vomiting Control: Adequate, Prn Tx Ordered Complications Possibly Related to Anesthesia: None Noted
--- NOTE | 2018-12-29 10:04 | PDANEPAE ---
ANE History of Present Illness 83 yo male with MR/AI s/p Mireya Clip and TAVR presents with CHF now for MICHELLE to evaluate. ANE Past Medical History - Cardiovascular History Hx Hypertension: No Hx Arrhythmias: No Hx Chest Pain: No Hx Coronary Artery / Peripheral Vascular Disease: No Hx CHF / Valvular Disease: Yes Cardiovascular History Comment: h/o MR and s/p TAVR and Mireya Clip - Pulmonary History Hx Asthma/Reactive Airway Disease: Yes Hx Oxygen in Use at Home: No Hx Sleep Apnea: Yes Pulmonary History Comment: No ER visits for RAD in past 20 years; MERRY. - Endocrine History Hx Diabetes: No Hypothyroid: No Hyperthyroid: No Obesity: no - GI History GERD: no - Chronic Pain History Chronic Pain: No ANE Review of Systems Review of Systems: - Systems Constitutional: Reports: malaise Respiratory: Reports: cough, shortness of breath Gastrointestinal: Reports: no symptoms ANE Patient History - Allergies Allergies/Adverse Reactions: erythromycin base Allergy (Verified 12/26/18 17:12) - Home Medications Home Medications: Aspirin [Aspirin 81mg (*)] 81 mg PO HS 12/27/16 [Last Taken 03/06/17] Calcium Carbonate [Oyster Shell Calcium 500 mg (*)] 500 mg PO HS 12/27/16 [Last Taken 03/06/17] Cholecalciferol Vit D3 [Vitamin D3 (*)] 1,000 units PO HS 12/27/16 [Last Taken 03/06/17] Herbals/Supplements -Info Only 1 ea PO DAILY 12/27/16 [Last Taken Unknown] Indomethacin [Indocin 25 mg (*)] 25 mg PO DAILY PRN 12/27/16 [Last Taken 21:00] Lisinopril [Zestril 20 mg (*)] 20 mg PO HS 12/27/16 [Last Taken 03/06/17] Magnesium Oxide [Magnesium Oxide 400 mg (*)] 400 mg PO HS 12/27/16 [Last Taken 03/06/17] Melatonin [Melatonin 3 MG (*)] 12 mg PO HS 12/27/16 [Last Taken 03/06/17] Multivitamins [Multivitamin (*)] 1 each PO HS 12/27/16 [Last Taken 03/06/17] Niacin [Niacin 500 mg (*)] 500 mg PO HS 12/27/16 [Last Taken 03/06/17] [place]-3 Fatty Acids [Fish Oil 1000 mg (*)] 3,000 mg PO HS 12/27/16 [Last Taken 03/06/17] - NPO status NPO Status: no food or drink >8 hours - Anes Hx Anes Hx: no prior problems - Smoking Hx Smoking Status: Former smoker - Family Anes Hx Family Anes Hx: neg - N/A ANE Labs/Vital Signs - Labs Result Diagrams: 12/27/18 03:27 12/29/18 06:05 - Vital Signs Blood Pressure: 122/70 Heart Rate: 65 Respiratory Rate: 16 O2 Sat (%): 94 Height: 172.72 cm Weight: 58.967 kg ANE Physical Exam - Airway Neck exam: FROM Mallampati Score: Class 2 Mouth exam: normal dental/mouth exam - Pulmonary Pulmonary: no respiratory distress, other (coarse breath sounds) - Cardiovascular Cardiovascular: regular rate and rhythym, systolic murmur - ASA Status ASA Status: IV ANE Anesthesia Plan Anesthesia Plan: GA with mask Total IV Anesthesia: Yes
[2018-12-29] MEDS ORDERED: LIDOCAINE 1% 5 ML SDV ONE (10:10)
[2018-12-29] MEDS ORDERED: PROPOFOL 200 MG/20 ML VIAL ONE (10:10)
[2018-12-29] MEDS: METOPROLOL SUCCINATE XR 25 MG TAB PO SCH (12:07)
[2018-12-29] MEDS: ENOXAPARIN 30 MG/0.3 ML SYR SC SCH (12:07)
[2018-12-29] MEDS: PSYLLIUM METAMUCIL 1 PKT PO SCH (12:08)
[2018-12-29] MEDS: FUROSEMIDE 40 MG TAB PO SCH (12:08)
--- NOTE | 2018-12-29 15:30 | ECHO ---
[email or web address] [address] [address] Main: [phone] Fax: Transesophageal Echocardiography Name: JOHN JIMENEZ MR#: [id number] Study Date: 12/29/2018 Study Time: 09:53 AM Date of : 1935 Age: 83 year(s) Height: 172.7 cm (68 in.) Weight: 58.97 kg (130 lb.) BSA: 1.7 m2 Gender: Male Examination: MICHELLE Indication: Eval MitraClips/TAVR/CHF Image Quality: Contrast: Requested by: Yemi Barraza Heart Rate: Rhythm: BP: / Procedure Staff Power Lineman: Meryl Beatty FRANNY Reading Physician: Carmen Reyes MD Requesting Provider: MICHELLE Exam Details Conclusions: Normal global systolic LV function. Normal RV function. Left to right shunt from the transseptal puncture (MitraClip procedure in 04/2018). No thrombus in left appendage. Severe mitral valve regurgitation is present. 2 MitraClips seen. One clip appears to be only attached to the anterior leaflet. P1 segment of the posterior leaflet is flail. MV mean gradient is 3mmHG.. 29mm Medronic Evolut Pro Core valve in place. 2 perivalvular regurgitant jets; moderate AR. Mild to moderate tricuspid valve regurgitation. The pulmonary artery pressure is mildly increased. RVSP is 49-54mmHG.. Mild to moderate pulmonic valve regurgitation. Left side pleural effusion. Measurements: Chambers Valvular Assessment AV/MV Valvular Assessment TV/PV Normal Normal Normal Name Value Range Name Value Range Name Value Range MV meanP mmHg ( - ) TR Vmax: 3.33 mm/s ( - ) TR PGmax: 44 mmHg ( - ) syst. PAP: 54 mmHg ( - ) Additional Measurements: Valvular Assessment AV/MV Valvular Assessment TV/PV Patient: JOHN JIMENEZ Study Date: 12/29/2018 Page 1 of 2 09:53 AM Name Value Name Value MV VTI: 50.30 cm CVP (est.): 10 mmHg Findings: Left Ventricle: Normal global systolic LV function. Right Ventricle: Normal RV function. Left Atrium: Left to right shunt from the transseptal puncture (MitraClip procedure in 04/2018). Left Atrial Appendage: No thrombus in left appendage. Mitral Valve: Severe mitral valve regurgitation is present. 2 MitraClips seen. One clip appears to be only attached to the anterior leaflet. P1 segment of the posterior leaflet is flail. MV mean gradient is 3mmHG.. Aortic Valve: 29mm Medronic Evolut Pro Core valve in place. 2 perivalvular regurgitant jets; moderate AR. Tricuspid Valve: Mild to moderate tricuspid valve regurgitation. The pulmonary artery pressure is mildly increased. RVSP is 49-54mmHG.. Pulmonic Valve: The pulmonic valve is normal in appearance. Mild to moderate pulmonic valve regurgitation. Pericardium: Left side pleural effusion. l1n (No Signature Object) Patient: JOHN JIMENEZ Study Date: 12/29/2018 Page 2 of 2 09:53 AM [id number]
--- NOTE | 2018-12-29 17:02 | ASMTCMCOM ---
CM Note CM Note Notes: 12/29/2018 Case Management Note Discussed pt during rounds this morning. Surgery is possible early next week. D/C not anticipated until early to mid week next week. There are no therapies ordered at this time. Transitional Care to follow. Case Management d/c poc: to be determined. Case Management to follow. Date Signed: 12/29/2018 05:02 PM Electronically Signed By:Mabel Luevano RN
[2018-12-29] MEDS: CALCIUM CARBONATE 500 MG TAB PO SCH (21:14)
[2018-12-29] MEDS: ASPIRIN 81 MG CHEWABLE TAB PO SCH (21:15)
[2018-12-29] MEDS: MELATONIN 3 MG TAB PO SCH (21:15)
[2018-12-29] MEDS: clonazePAM 0.5 MG TAB PO SCH (21:15)
[2018-12-29] MEDS: NIACIN 500 MG TAB PO SCH ×2 (21:15→21:19)
[2018-12-29] MEDS: OMEGA-3 FATTY ACIDS 1,000 MG CAP PO SCH (21:15)
[2018-12-29] MEDS: MULTIVITAMINS 1 EACH TAB PO SCH (21:15)
[2018-12-29] MEDS: LISINOPRIL 20 MG TAB PO SCH (21:15)
[2018-12-29] MEDS: CHOLECALCIFEROL VIT D3 1,000 UNITS TAB PO SCH (21:15)
[2018-12-29] MEDS: MAGNESIUM OXIDE 400 MG TAB PO SCH (21:15)
[2018-12-30] MEDS: ENOXAPARIN 30 MG/0.3 ML SYR SC SCH (09:37)
[2018-12-30] MEDS: METOPROLOL SUCCINATE XR 25 MG TAB PO SCH (09:37)
[2018-12-30] MEDS: FUROSEMIDE 40 MG TAB PO SCH (09:37)
[2018-12-30] MEDS: PSYLLIUM METAMUCIL 1 PKT PO SCH (09:38)
--- NOTE | 2018-12-30 11:00 | SOAPPROG ---
SONOEL Progress Note Assessment/Plan: Assessment: 1. Valvular heart disease. He is status post transcatheter aortic valve replacement and MitraClip procedure. He has what appears to be a failed MitraClip now with torrential mitral regurgitation. Additionally, he has mild- to-moderate perivalvular regurgitation related to his transcatheter aortic valve replacement. This has been associated with worsening pulmonary hypertension and the development of congestive heart failure. There are plans for him to have surgical AVR, MVR and tricuspid valve repair on Tuesday. He has no history of arrhythmia. 2. Congestive heart failure. This is on the basis of the above noted valvular heart disease. He has a normal ejection fraction. He appears to be nearly euvolemic today. 3. Pulmonary hypertension. This appears to be related to his underlying valvular disease. He does have a history of sleep apnea and uses CPAP. He has no history of primary lung disease. 4. Atrial septal defect. This is small based on his MICHELLE and likely iatrogenic from his prior MitraClip procedure. 5. History of renal insufficiency. This may be related to his diuresis. Additionally, this could be contributed to by poor forward flow in the setting of his valvular heart disease. Plan: 1. There are plans for him to have surgical AVR, MVR and tricuspid valve repair on Tuesday. He may have his ASD repaired at the same time. 2. Between now and then, I do not think he requires any additional cardiovascular therapies or testing. 3. We will follow along. 12/30/18 11:01 Subjective: The patient was seen and examined. His chart was reviewed. I reviewed his transesophageal echocardiogram. Today states he feels better than when he was admitted. He still has a slight dry cough with deep inspiration however nothing productive. He notes that his lower extremity edema has now nearly completely resolved. He denies any symptoms of chest discomfort, orthopnea, PND and limiting symptoms of dyspnea. Objective: Vital Signs Temp Pulse Resp BP Pulse Ox 36.7 C 80 16 122/48 H 92 12/30/18 08:00 12/30/18 08:00 12/30/18 08:00 12/30/18 09:37 12/30/18 08:00 Laboratory Results 12/30/18 04:14 12/30/18 04:14 12/29/18 12/30/18 12/31/18 05:59 05:59 05:59 Intake Total 400 2365 150 Output Total 1375 1775 500 Balance -975 590 -350 PT 14.0 SEC (12.0-15.0) 12/26/18 17:52 INR 1.06 (0.83-1.16) 12/26/18 17:52 Physical Exam - Physical Exam General Appearance: alert, no apparent distress, thin EENT: PERRL/EOMI, normal ENT inspection, pharynx normal, TMs normal Neck: non-tender, full range of motion, supple, normal inspection Respiratory: chest non-tender, lungs clear, normal breath sounds Cardiac/Chest: normal peripheral pulses, regular rate, rhythm, edema (Confined to the ankles), systolic murmur (2/6 holosystolic murmur left sternal border) Peripheral Pulses: 2+: carotid (R), carotid (L), femoral (R), femoral (L), dorsalis-pedis (R), dorsalis-pedis (L) Abdomen: normal bowel sounds, non-tender, soft Male Genitalia: deferred Rectal: deferred Back: Normal inspection Skin: normal color, warm/dry Lymphatic: no adenopathy Extremities: normal range of motion, non-tender, normal inspection, normal capillary refill Neuro/Psych: no motor/sensory deficits, alert, normal mood/affect, oriented x 3 ICD10 Worksheet Patient Problems: Problems Problem Status Onset Chronic Disease Mgmt/Transitional Care Acute Congestive heart failure Acute
--- NOTE | 2018-12-30 12:31 | HOSPPROG ---
Hospitalist Progress Note Assessment/Plan: #Severe MR/mod MS: CT surgery plan for AVR/TVR/MRV replacement Tuesday #FRANKO on CKD: Cr stable today. Monitor closely with Lasix #Pulm HTN: cont PO Lasix #VT: 11-beat today. K/Mg at goal #Decompensated diastolic HF: now on PO lasix. BP controlled #DVT ppx: Lovenox #Disp: inpatient admission for monitored diuresis, telemetry Subjective: no acute events overnight Objective: Vital Signs Temp Pulse Resp BP Pulse Ox 36.7 C 80 16 122/48 H 92 12/30/18 08:00 12/30/18 08:00 12/30/18 08:00 12/30/18 09:37 12/30/18 08:00 Laboratory Results 12/30/18 04:14 12/30/18 04:14 12/29/18 12/30/18 12/31/18 05:59 05:59 05:59 Intake Total 400 2365 150 Output Total 1375 1775 500 Balance -975 590 -350 PT 14.0 SEC (12.0-15.0) 12/26/18 17:52 INR 1.06 (0.83-1.16) 12/26/18 17:52 - Time Spent With Patient Time Spent with Patient: greater than 35 minutes Time Spent with Patient: Greater than 35 minutes spent on this patients care, greater than 50% of time spent counseling, educating, and coordinating care regarding the above mentioned plan. - Physical Exam Constitutional: other (thin) Eyes: PERRL Ears, Nose, Mouth, Throat: moist mucous membranes Cardiovascular: regular rate and rhythym Respiratory: no respiratory distress Gastrointestinal: normoactive bowel sounds Genitourinary: no bladder fullness Skin: warm Musculoskeletal: full muscle strength Neurologic: AAOx3, CN II-XII Intact ICD10 Worksheet Patient Problems: Problems Problem Status Onset Congestive heart failure Acute Chronic Disease Mgmt/Transitional Care Acute
[2018-12-30] MEDS: MULTIVITAMINS 1 EACH TAB PO SCH (20:22)
[2018-12-30] MEDS: OMEGA-3 FATTY ACIDS 1,000 MG CAP PO SCH (20:22)
[2018-12-30] MEDS: clonazePAM 0.5 MG TAB PO SCH (20:22)
[2018-12-30] MEDS: CALCIUM CARBONATE 500 MG TAB PO SCH (20:22)
[2018-12-30] MEDS: MAGNESIUM OXIDE 400 MG TAB PO SCH (20:22)
[2018-12-30] MEDS: LISINOPRIL 20 MG TAB PO SCH (20:22)
[2018-12-30] MEDS: CHOLECALCIFEROL VIT D3 1,000 UNITS TAB PO SCH (20:22)
[2018-12-30] MEDS: ASPIRIN 81 MG CHEWABLE TAB PO SCH (20:22)
[2018-12-30] MEDS: MELATONIN 3 MG TAB PO SCH (20:22)
[2018-12-30] MEDS: NIACIN 500 MG TAB PO SCH (20:24)
[2018-12-31] MEDS: FUROSEMIDE 40 MG TAB PO SCH (08:21)
[2018-12-31] MEDS: METOPROLOL SUCCINATE XR 25 MG TAB PO SCH (08:21)
[2018-12-31] MEDS: PSYLLIUM PO SCH (08:50)
[2018-12-31] MEDS ORDERED: PSYLLIUM PO SCH (09:00)
[2018-12-31] MEDS ORDERED: CHLORHEXIDINE GLUC HIBICLENS 118 ML BTL TP SCH (10:15)
[2018-12-31] MEDS: MUPIROCIN 2% 22 GM OINT NS SCH ×2 (10:17→21:52)
--- NOTE | 2018-12-31 14:00 | HOSPPROG ---
Hospitalist Progress Note Assessment/Plan: Patient not available on 2 occasions I tried to see him. Did not examine. Labs reviewed. #Severe MR/mod MS: CT surgery plan for AVR/TVR/MRV replacement tomorrow #FRANKO: Cr stable today. Monitor closely with Lasix #Pulm HTN: cont PO Lasix #VT: 11-beat today. K/Mg at goal #Decompensated diastolic HF: now on PO lasix. BP controlled #DVT ppx: Lovenox #Disp: inpatient admission for monitored diuresis, telemetry Objective: Vital Signs Temp Pulse Resp BP Pulse Ox 36.6 C 63 12 108/67 96 12/31/18 09:47 12/31/18 12:15 12/31/18 12:15 12/31/18 12:15 12/31/18 12:15 Laboratory Results 12/30/18 04:14 12/31/18 03:22 12/30/18 12/31/18 01/01/19 05:59 05:59 05:59 Intake Total 2365 2070 Output Total 1775 1700 900 Balance 590 370 -900 PT 14.0 SEC (12.0-15.0) 12/26/18 17:52 INR 1.06 (0.83-1.16) 12/26/18 17:52 - Time Spent With Patient Time Spent with Patient: greater than 25 minutes Time Spent with Patient: Greater than 25 minutes spent on this patients care, greater than 50% of time spent counseling, educating, and coordinating care regarding the above mentioned plan. ICD10 Worksheet Patient Problems: Problems Problem Status Onset Congestive heart failure Acute Chronic Disease Mgmt/Transitional Care Acute
[2018-12-31] MEDS: MELATONIN 3 MG TAB PO SCH (20:54)
[2018-12-31] MEDS: NIACIN 500 MG TAB PO SCH (20:55)
[2018-12-31] MEDS: CALCIUM CARBONATE 500 MG TAB PO SCH (20:55)
[2018-12-31] MEDS: MULTIVITAMINS 1 EACH TAB PO SCH (20:56)
[2018-12-31] MEDS: MAGNESIUM OXIDE 400 MG TAB PO SCH (20:57)
[2018-12-31] MEDS: CHOLECALCIFEROL VIT D3 1,000 UNITS TAB PO SCH (20:57)
[2018-12-31] MEDS: LISINOPRIL 20 MG TAB PO SCH (20:58)
[2018-12-31] MEDS: ASPIRIN 81 MG CHEWABLE TAB PO SCH (23:51)
[2018-12-31] MEDS: OMEGA-3 FATTY ACIDS 1,000 MG CAP PO SCH (23:52)
[2018-12-31] MEDS: clonazePAM 0.5 MG TAB PO SCH (23:53)
[2019-01-01] MEDS ORDERED: LR 1,000 ML IV ONE (08:14)
[2019-01-01] MEDS: METOPROLOL SUCCINATE XR 25 MG TAB PO SCH (08:15)
[2019-01-01] MEDS: FUROSEMIDE 40 MG TAB PO SCH (08:15)
[2019-01-01] MEDS ORDERED: NOREPINEPHRINE BITARTRATE 16 MG in NS 250 ML IV ONE (09:00)
[2019-01-01] MEDS ORDERED: niCARdipine/NACL 200 ML IV ONE (09:00)
[2019-01-01] MEDS ORDERED: MUPIROCIN 2% 22 GM OINT NS ONE (09:00)
[2019-01-01] MEDS ORDERED: INSULIN REGULAR HUMAN 100 UNIT in NS 100 ML IV ONE (09:00)
[2019-01-01] MEDS ORDERED: PHENYLEPHRINE HCL 50 MG in NS 250 ML IV ONE (09:00)
[2019-01-01] MEDS ORDERED: CARDIOPLEGIC SOLUTION 1,052.8 ML PF ONE (09:00)
[2019-01-01] MEDS ORDERED: DOBUTamine 500 MG in D5W 250 ML IV SCH (09:00)
[2019-01-01] MEDS ORDERED: MANNITOL 25% 12.5 GM/50 ML VIAL IVP ONE (09:00)
[2019-01-01] MEDS ORDERED: ceFAZolin 2 GM/DEXTROSE 100 ML IV ONE (09:00)
[2019-01-01] MEDS ORDERED: AMINOCAPROIC ACID 5 GM/20 ML VIAL IV ONE (09:00)
[2019-01-01] MEDS ORDERED: CITRATE DEXTROSE SOLN 500 ML BAG MISC ONE (09:00)
[2019-01-01] MEDS ORDERED: CALCIUM CHLORIDE 1 GM/10 ML INJ ONE (09:22)
[2019-01-01] MEDS ORDERED: PROTAMINE SULFATE 50 MG/5 ML VIAL IVP ONE (09:22)
[2019-01-01] MEDS ORDERED: ADENOSINE 6 MG/2 ML VIAL ONE (09:23)
[2019-01-01] MEDS ORDERED: HEPARIN 10,000 UNIT/10 ML MDV (1,000 UNIT/ML) ONE ×2 (09:23→09:24)
[2019-01-01] MEDS ORDERED: DOPamine/DEXTROSE 400 MG/250 ML BAG IV ONE (09:23)
[2019-01-01] MEDS ORDERED: niCARdipine/NACL/200 ML BAG IV ONE (09:23)
[2019-01-01] MEDS ORDERED: AMIODARONE HCL 150 MG/3 ML VIAL ONE ×2 (09:23→09:24)
[2019-01-01] MEDS ORDERED: AMINOCAPROIC ACID 5 GM/20 ML VIAL ONE ×2 (09:23→09:24)
[2019-01-01] MEDS ORDERED: MILRINONE/DEXTROSE/100 ML BAG IV ONE (09:23)
[2019-01-01] MEDS ORDERED: NA BICARBONATE 50 MEQ/50 ML VIAL ONE (09:23)
[2019-01-01] MEDS ORDERED: ceFAZolin 1 GM VIAL ONE (09:23)
[2019-01-01] MEDS ORDERED: ALBUMIN 5% 250 ML BOTTLE IV ONE ×3 (09:24→13:42)
[2019-01-01] MEDS ORDERED: LIDOCAINE 2% 100 MG/5 ML SYR ONE (09:24)
[2019-01-01] MEDS ORDERED: CITRATE DEXTROSE SOLN 500 ML BAG ONE (09:24)
[2019-01-01] MEDS ORDERED: NITROGLYCERIN/D5W 50 MG/250 ML BOTTLE IV ONE (09:24)
[2019-01-01] MEDS ORDERED: SODIUM BICARBONATE 50 MEQ/50 ML SYR ONE (09:24)
[2019-01-01] MEDS ORDERED: methylPREDNISolone SOD SUCC 1 GM/8 ML VIAL ONE (09:25)
[2019-01-01] MEDS ORDERED: MAGNESIUM SULFATE 1 GM/2 ML VIAL ONE (09:25)
[2019-01-01] MEDS ORDERED: MIDAZOLAM 2 MG/2 ML VIAL IVP ONE (09:31)
--- NOTE | 2019-01-01 09:31 | PDANEPAE ---
ANE History of Present Illness aortic regurg, MV regurg, TV regurg, ASD, post Mitraclip, post TAVR ANE Past Medical History - Cardiovascular History Hx Hypertension: No Hx Arrhythmias: No Hx Chest Pain: No Hx Coronary Artery / Peripheral Vascular Disease: No Hx CHF / Valvular Disease: Yes Hx Palpitations: Yes Cardiovascular History Comment: h/o MR and s/p TAVR and Mireya Clip - Pulmonary History Hx Asthma/Reactive Airway Disease: Yes Hx Recent Upper Respiratory Infection: No Hx Oxygen in Use at Home: No Hx Sleep Apnea: Yes Sleep Apnea Screening Result - Last Documented: Positive Pulmonary History Comment: No ER visits for RAD in past 20 years; MERRY. - Endocrine History Hx Diabetes: No Hypothyroid: No Hyperthyroid: No Obesity: no - Renal History Hx Renal Disorders: Yes Renal History Comment: CR 1.4 - Liver History Hx Hepatic Disorders: No - Neurological & Psychiatric Hx Hx Neurological and Psychiatric Disorders: No - Cancer History Hx Cancer: No - Congenital Disorder History Hx Congenital Disorders: No - GI History GERD: no Hx Gastrointestinal Disorders: No - Other Health History Other Health History: CHF and increased PA pressures due to MVR, EF 55% - Chronic Pain History Chronic Pain: No ANE Review of Systems Review of systems is: negative Review of Systems: - Exercise capacity METS (RN): 2 METS ANE Patient History - Allergies Allergies/Adverse Reactions: erythromycin base Allergy (Verified 12/26/18 17:12) - Home Medications Home medications: home medication list seen and reviewed Home Medications: Aspirin [Aspirin 81mg (*)] 81 mg PO HS 12/27/16 [Last Taken 03/06/17] Calcium Carbonate [Oyster Shell Calcium 500 mg (*)] 500 mg PO HS 12/27/16 [Last Taken 03/06/17] Cholecalciferol Vit D3 [Vitamin D3 (*)] 1,000 units PO HS 12/27/16 [Last Taken 03/06/17] Herbals/Supplements -Info Only 1 ea PO DAILY 12/27/16 [Last Taken Unknown] Indomethacin [Indocin 25 mg (*)] 25 mg PO DAILY PRN 12/27/16 [Last Taken 21:00] Lisinopril [Zestril 20 mg (*)] 20 mg PO HS 12/27/16 [Last Taken 03/06/17] Magnesium Oxide [Magnesium Oxide 400 mg (*)] 400 mg PO HS 12/27/16 [Last Taken 03/06/17] Melatonin [Melatonin 3 MG (*)] 12 mg PO HS 12/27/16 [Last Taken 03/06/17] Multivitamins [Multivitamin (*)] 1 each PO HS 12/27/16 [Last Taken 03/06/17] Niacin [Niacin 500 mg (*)] 500 mg PO HS 12/27/16 [Last Taken 03/06/17] [place]-3 Fatty Acids [Fish Oil 1000 mg (*)] 3,000 mg PO HS 12/27/16 [Last Taken 03/06/17] Psyllium Metamucil 5 cap PO DAILY 12/31/18 [Last Taken Unknown] - NPO status NPO Status: no food or drink >8 hours NPO Since - Liquids (Date): 01/01/19 NPO Since - Liquids (Time): 00:00 NPO Since - Solids (Date): 01/01/19 NPO Since - Solids (Time): 00:00 - Anes Hx Anes Hx: slow to awaken from anesthesia - Smoking Hx Smoking Status: Former smoker Marijuana use: No - Alcohol Use Alcohol Use: None - Family Anes Hx Family Anes Hx: none ANE Labs/Vital Signs - Labs Result Diagrams: 12/30/18 04:14 01/01/19 05:00 - Vital Signs Blood Pressure: 107/65 Heart Rate: 59 Respiratory Rate: 14 O2 Sat (%): 93 Height: 172.72 cm Weight: 59.6 kg ANE Physical Exam - Airway Neck exam: FROM Mallampati Score: Class 2 Mouth exam: normal dental/mouth exam - Pulmonary Pulmonary: no respiratory distress, clear to auscultation - Cardiovascular Cardiovascular: systolic murmur, irregularly irregular, diastolic murmur - ASA Status ASA Status: IV ANE Anesthesia Plan Anesthesia Plan: general endotracheal anesthesia Lines/Monitors: arterial line, central line, MICHELLE
[2019-01-01] MEDS ORDERED: PROPOFOL 200 MG/20 ML VIAL ONE (09:53)
[2019-01-01] MEDS ORDERED: ROCURONIUM 100 MG/10 ML VIAL ONE (09:53)
[2019-01-01] MEDS ORDERED: LIDOCAINE 2% 2 ML INJ ONE (09:53)
[2019-01-01] MEDS ORDERED: fentaNYL 250 MCG/5 ML INJ ONE (09:53)
[2019-01-01] MEDS ORDERED: PHENYLEPHRINE HCL 100 MCG/ML SYR ONE (09:57)
--- NOTE | 2019-01-01 10:01 | PDGENHP ---
History and Physical - Chief Complaint valvular heart failure - History of Present Illness This is a 83M s/p TAVR Evolut 2018 with mild to moderate PVL, two mitraclips resulting in moderate/severe mitral regurg and stenosis, pulmonary HTN (70s) and at least moderate TR who was admitted on 12/26 of acute on chronic heart failure. He has been optimized while admitted and agrees to proceed with surgery. He continues to have a nonproductive cough. He denies chest pain or fevers. History Information - Allergies/Home Medication List Allergies/Adverse Reactions: erythromycin base Allergy (Verified 12/26/18 17:12) Home Medications: Aspirin [Aspirin 81mg (*)] 81 mg PO HS 12/27/16 [Last Taken 03/06/17] Calcium Carbonate [Oyster Shell Calcium 500 mg (*)] 500 mg PO HS 12/27/16 [Last Taken 03/06/17] Cholecalciferol Vit D3 [Vitamin D3 (*)] 1,000 units PO HS 12/27/16 [Last Taken 03/06/17] Herbals/Supplements -Info Only 1 ea PO DAILY 12/27/16 [Last Taken Unknown] Indomethacin [Indocin 25 mg (*)] 25 mg PO DAILY PRN 12/27/16 [Last Taken 21:00] Lisinopril [Zestril 20 mg (*)] 20 mg PO HS 12/27/16 [Last Taken 03/06/17] Magnesium Oxide [Magnesium Oxide 400 mg (*)] 400 mg PO HS 12/27/16 [Last Taken 03/06/17] Melatonin [Melatonin 3 MG (*)] 12 mg PO HS 12/27/16 [Last Taken 03/06/17] Multivitamins [Multivitamin (*)] 1 each PO HS 12/27/16 [Last Taken 03/06/17] Niacin [Niacin 500 mg (*)] 500 mg PO HS 12/27/16 [Last Taken 03/06/17] [place]-3 Fatty Acids [Fish Oil 1000 mg (*)] 3,000 mg PO HS 12/27/16 [Last Taken 03/06/17] Psyllium Metamucil 5 cap PO DAILY 12/31/18 [Last Taken Unknown] I have personally reviewed and updated: family history, medical history, social history, surgical history - Past Medical History hypertension Additional medical history: MERRY on CPAP, kidney disease - Social History Smoking Status: Former smoker Alcohol Use: None Review of Systems Review of Systems: ROS: 2-9 pt reviewed & negative except for what was stated in HPI & below Physical Exam Physical Exam: Temp Pulse Resp BP Pulse Ox 35.9 C L 59 L 14 107/65 93 01/01/19 08:00 01/01/19 09:31 01/01/19 09:31 01/01/19 09:31 01/01/19 09:31 Constitutional: no apparent distress, not in pain Eyes: icteric sclera, pale conjunctiva Ears, Nose, Mouth, Throat: moist mucous membranes, hearing normal Cardiovascular: regular rate and rhythym, no murmur, rub, or gallop Respiratory: no respiratory distress, no rales or rhonchi Gastrointestinal: soft, non-tender abdomen Skin: warm, normal color Neurologic: AAOx3 Psychiatric: interacting appropriately, thought process linear Lab Data & Imaging Review 12/30/18 04:14 01/01/19 05:00 WBC 5.58 10^3/uL (3.80-9.50) 12/30/18 04:14 RBC 4.49 10^6/uL (4.40-6.38) 12/30/18 04:14 Hgb 15.2 g/dL (13.7-17.5) 12/30/18 04:14 Hct 44.6 % (40.0-51.0) 12/30/18 04:14 MCV 99.3 fL (81.5-99.8) 12/30/18 04:14 MCH 33.9 pg (27.9-34.1) 12/30/18 04:14 MCHC 34.1 g/dL (32.4-36.7) 12/30/18 04:14 RDW 14.1 % (11.5-15.2) 12/30/18 04:14 Plt Count 130 10^3/uL (150-400) L 12/30/18 04:14 MPV 11.6 fL (8.7-11.7) 12/27/18 03:27 Neut % (Auto) 76.7 % (39.3-74.2) H 12/27/18 03:27 Lymph % (Auto) 11.9 % (15.0-45.0) L 12/27/18 03:27 [place] % (Auto) 8.9 % (4.5-13.0) 12/27/18 03:27 Eos % (Auto) 1.8 % (0.6-7.6) 12/27/18 03:27 Baso % (Auto) 0.4 % (0.3-1.7) 12/27/18 03:27 Nucleat RBC Rel Count 0.0 % (0.0-0.2) 12/27/18 03:27 Absolute Neuts (auto) 5.17 10^3/uL (1.70-6.50) 12/27/18 03:27 Absolute Lymphs (auto) 0.80 10^3/uL (1.00-3.00) L 12/27/18 03:27 Absolute Monos (auto) 0.60 10^3/uL (0.30-0.80) 12/27/18 03:27 Absolute Eos (auto) 0.12 10^3/uL (0.03-0.40) 12/27/18 03:27 Absolute Basos (auto) 0.03 10^3/uL (0.02-0.10) 12/27/18 03:27 Absolute Nucleated RBC 0.00 10^3/uL (0-0.01) 12/27/18 03:27 Immature Gran % 0.3 % (0.0-1.1) 12/27/18 03:27 Immature Gran # 0.02 10^3/uL (0.00-0.10) 12/27/18 03:27 PT 14.0 SEC (12.0-15.0) 12/26/18 17:52 INR 1.06 (0.83-1.16) 12/26/18 17:52 Sodium 136 mEq/L (135-145) 01/01/19 05:00 Potassium 4.8 mEq/L (3.5-5.2) 01/01/19 05:00 Chloride 109 mEq/L (97-110) 01/01/19 05:00 Carbon Dioxide 23 mEq/l (22-31) 01/01/19 05:00 Anion Gap 4 mEq/L (6-14) L 01/01/19 05:00 BUN 52 mg/dL (7-23) H 01/01/19 05:00 Creatinine 1.4 mg/dL (0.7-1.3) H 01/01/19 05:00 Estimated GFR 48 01/01/19 05:00 Glucose 86 mg/dL (70-100) 01/01/19 05:00 POC Glucose 70 mg/dL (70-100) 12/29/18 09:32 Hemoglobin A1c 5.3 % (4.0-6.0) 12/30/18 03:22 Estim Average Glucose 105 mg/dL (68-126) 12/30/18 03:22 Calcium 8.8 mg/dL (8.5-10.4) 01/01/19 05:00 Magnesium 2.2 mg/dL (1.6-2.3) 01/01/19 05:00 POC Troponin I 0.01 ng/mL (0.00-0.08) 12/26/18 17:58 NT-Pro-B Natriuret Pep 2510 pg/mL (0-450) H 12/29/18 06:05 Patient ABO/Rh B NEGATIVE 12/30/18 13:30 Antibody Screen NEGATIVE 12/30/18 13:30 Imaging Review: MICHELLE, CUS, CXR, & outside cath reviewed in [facility] Assessment & Plan Assessment: Acute on chronic systolic CHF Aortic perivalvular leak s/p TAVR 2018 Severe mitral regurgitation s/p x2 MitraClip 2018 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 Ly.
--- NOTE | 2019-01-01 10:06 | SOAPPROG ---
JASPER Progress Note Assessment/Plan: Assessment: I have met with the patient on three occaisions now, twice hi was present. We discussed again the nature of his CHF and the dysfunction of both valves. We discussed the risks, benefits and alternatives to surgery and the patient has agreed to proceed. All questions were answered. AVR, MVR, AUTUMN occlusion, ASD closure and possible TV repair are planned. Objective: Vital Signs Temp Pulse Resp BP Pulse Ox 35.9 C L 59 L 14 107/65 93 01/01/19 08:00 01/01/19 09:31 01/01/19 09:31 01/01/19 09:31 01/01/19 09:31 Laboratory Results 12/30/18 04:14 01/01/19 05:00 12/31/18 01/01/19 01/02/19 05:59 05:59 05:59 Intake Total 2070 Output Total 1700 2350 200 Balance 370 -2350 -200 PT 14.0 SEC (12.0-15.0) 12/26/18 17:52 INR 1.06 (0.83-1.16) 12/26/18 17:52 ICD10 Worksheet Patient Problems: Problems Problem Status Onset Congestive heart failure Acute Chronic Disease Mgmt/Transitional Care Acute
[2019-01-01] MEDS ORDERED: ISOFLURANE 100 ML BOTTLE IH ONE (11:15)
[2019-01-01] MEDS ORDERED: METOPROLOL TARTRATE 5 MG/5 ML INJ ONE (11:36)
[2019-01-01] MEDS ORDERED: PROPOFOL/EMULSION 500 MG/50 ML BOTTLE IV ONE (15:19)
[2019-01-01] MEDS ORDERED: ONDANSETRON 4 MG/2 ML VIAL ONE (15:25)
[2019-01-01] MEDS ORDERED: fentaNYL 100 MCG/2 ML INJ IVP PRN (15:42)
[2019-01-01] MEDS ORDERED: epHEDrine SULFATE 10 MG/ML SYR IVP PRN (15:42)
[2019-01-01] MEDS ORDERED: PHENYLEPHRINE HCL 100 MCG/ML SYR IVP PRN (15:42)
[2019-01-01] MEDS ORDERED: NALOXONE HCL 0.4 MG/ML INJ IVP PRN (15:42)
[2019-01-01] MEDS ORDERED: NS 500 ML IV PRN (15:42)
--- NOTE | 2019-01-01 15:45 | POSTANESTH ---
Post Anesthetic Evaluation Cardiovascular Status: Normal, Stable Respiratory Status: Requires Airway Assist Level of Consciousness/Mental Status: Unconscious Pain Control: Adequate, Prn Tx Ordered Nausea/Vomiting Control: Adequate, Prn Tx Ordered Complications Possibly Related to Anesthesia: None Noted
--- NOTE | 2019-01-01 15:56 | POSTOPPROG ---
Post Op Note Date of Operation: 01/01/19 Surgeon: Mateus Ly Assistant: Oscar Dalal PAC Anesthesiologist: Dr. Trevino Anesthesia: GET(General Endotracheal) Pre-op Diagnosis: PVL s/p TAVR, MR s/p MitraClipx2, TR, ASD, pleural effusions Post-op Diagnosis: same Procedure: explant of TAVR, AVR, MVR, TVA, closure of ASD, AUTUMN occlusion Findings: see final OR report Inf/Abcess present in the surg proc area at time of surgery?: No Depth: Organ Space EBL: 500-1000 Complications: none Drains: Other (3 chest tubes (1 left pleural, 1 mediastinal, 1 right pleural); A &V wires) Specimen(s): explanted TAVR MV with Mitraclips
[2019-01-01] MEDS ORDERED: D50W 25 GM/50 ML SYR IVP PRN (15:59)
[2019-01-01] MEDS ORDERED: LACTULOSE 20 GM/30 ML UDCUP PO PRN (15:59)
[2019-01-01] MEDS ORDERED: ACETAMINOPHEN 325 MG TAB PO PRN (15:59)
[2019-01-01] MEDS ORDERED: ACETAMINOPHEN 650 MG SUPP PR PRN (15:59)
[2019-01-01] MEDS ORDERED: MEPERIDINE 25 MG/0.5 ML AMP IVP PRN (15:59)
[2019-01-01] MEDS ORDERED: METOCLOPRAMIDE 10 MG/2 ML VIAL IVP PRN (15:59)
[2019-01-01] MEDS ORDERED: SODIUM CL NASAL 45 ML BTL EACHNARE PRN (15:59)
[2019-01-01] MEDS ORDERED: POTASSIUM Cl (KCl) 50 ML IV PRN (15:59)
[2019-01-01] MEDS ORDERED: PANTOPRAZOLE SODIUM 40 MG VIAL IVP ONE (15:59)
[2019-01-01] MEDS ORDERED: BISACODYL 10 MG SUPP PR PRN (15:59)
[2019-01-01] MEDS ORDERED: niCARdipine/NACL 200 ML IV SCH (16:00)
[2019-01-01] MEDS ORDERED: INSULIN REGULAR HUMAN 100 UNIT in NS 100 ML IV SCH (16:00)
[2019-01-01] MEDS ORDERED: NS 1,000 ML IV SCH (16:00)
[2019-01-01] MEDS: ALBUMIN 5% 250 ML IV PRN (17:00)
[2019-01-01 17:26] LABS: INR 1.7 (0.83-1.16); PROTIME(PATIENT) 20.1 SEC (12.0-15.0)
[2019-01-01] MEDS ORDERED: NOREPINEPHRINE BITARTRATE 16 MG in NS 250 ML IV SCH (18:00)
[2019-01-01] MEDS ORDERED: ALBUMIN 5% 250 ML IV ONE ×2 (18:00→18:30)
[2019-01-01] MEDS ORDERED: NS 500 ML IV ONE (18:00)
[2019-01-01] MEDS ORDERED: PROPOFOL/EMULSION 1,000 MG/100 ML BOTTLE IV ONE (18:03)
[2019-01-01] MEDS: PSYLLIUM PO SCH (18:12)
[2019-01-01] MEDS: MUPIROCIN 2% 22 GM OINT NS SCH ×2 (18:12→22:30)
[2019-01-01] MEDS ORDERED: PROPOFOL/EMULSION 100 ML IV SCH (18:19)
[2019-01-01] MEDS ORDERED: CALCIUM CHLORIDE 1 GM/10 ML INJ IVP ONE (19:00)
[2019-01-01] MEDS ORDERED: POTASSIUM Cl (KCl) 50 ML IV SCH (19:07)
[2019-01-01] MEDS ORDERED: POTASSIUM Cl (KCl) 50 ML IV ONE (19:30)
[2019-01-01] MEDS: fentaNYL 100 MCG/2 ML INJ IVP PRN ×2 (20:00→22:28)
[2019-01-01] MEDS ORDERED: FAMOTIDINE 20 MG/NACL 50 ML IV SCH (21:00)
[2019-01-01] MEDS: ceFAZolin 2 GM/DEXTROSE 100 ML IV SCH (22:26)
[2019-01-01] MEDS: CHLORHEXIDINE GLUCONATE 15 ML UDL PO SCH (22:27)
[2019-01-02] MEDS: fentaNYL 100 MCG/2 ML INJ IVP PRN ×6 (00:10→06:57)
[2019-01-02] MEDS: ALBUMIN 5% 250 ML IV PRN (01:35)
[2019-01-02] MEDS: ceFAZolin 2 GM/DEXTROSE 100 ML IV SCH ×3 (05:33→21:54)
[2019-01-02 05:39] LABS: PLATELET COUNT 83 10^3/uL (150-400)
[2019-01-02] MEDS: HEPARIN 5,000 UNIT/0.5 ML INJ SC SCH ×3 (05:44→22:26)
--- NOTE | 2019-01-02 07:11 | SOAPPROG ---
SOAP Progress Note Assessment/Plan: POD#1 Explant of #29 Medtronic Evolut Pro TAVR Aortic valve replacement #23 Magna Ease Explant of x2 MitraClips Mitral valve replacement #29 Magna Mitral Ease Tricuspid valve annuloplasty #28 MC3 ring Primary closure of large atrial septal defect External occlusion of left atrial appendage Drainage of large bilateral pleural effusions Post-operative hypovolemic shock - Patient had 2 near codes with SBP 40's-50's on POD#0. Required dobutrex, norepi, and multiple crystalloid/colloid infusions for BP support. Very sensitive to hypovolemia/low CVP. Underlying rhythm yesterday junctional in 50's. A-paced at 90. CI stable. Severe MR s/p MitraClip Explant/MVR - Start BB when appropriate. Plan for 8 weeks of anticoagulation when appropriate/chest tube output decreases. Daily ASA. Moderate AI s/p TAVR explant/AVR - Moderate PVL pre-op. Successfully explanted and replaced with bioprosthetic valve. TR s/p TVA - Moderate TR pre-op. Closure of ASD - presumed to be an iatrogenic transseptal puncture 2/ MitraClip procedure. Successfully closed primarily. Post-operative coagulopathy with acute blood loss anemia & thrombocytopenia - Worsened with hypothermia p OR. Transfused 2 plt, 2 FFP, 3 pRBCs. Chest tube output trending down. Plt 83k today. If chest tube output continues to be >300cc /shift, plan to transfuse platelets. Plt were 130k prior to OR. Acute renal insufficiency - Creatinine 1.3 on admission. Avoid nephrotoxic medications. Making urine. Acute on chronic systolic heart failure - admitted on 12/26 for this reason. Secondary to valvular disease. No RWMA with EF 60-65%. Bilateral pleural effusions drained in the OR. Hold home ACEI. Carotid artery disease - Noted on pre-op work-up. 50-69% LICA. Avoid hypotension. Acute pulmonary insufficiency - Intubated. CXR appears congested. Up in weight. No prior pulmonary disease. Frailty - octogenarian, deconditioning noted pre-op. PTOT. Dispo: Wean to extubate per Dr. Kimball Wean dobutrex first, then Norepi as CI has been good but remains vasodilated Start gentle diuresis at Lasix 10 mg IV x 1 Transfuse plt if chest tube output continues to be>300cc/shift Subjective: Improved hemodynamics overnight. Objective: Vital Signs Temp Pulse Resp BP Pulse Ox 37.5 C 90 12 97/49 L 95 01/02/19 05:00 01/02/19 06:00 01/02/19 06:00 01/02/19 06:00 01/02/19 06:00 Laboratory Results 01/02/19 05:00 01/02/19 05:00 01/01/19 01/02/19 01/03/19 05:59 05:59 05:59 Intake Total 5179.9 Output Total 2350 2730 Balance -2350 2449.9 PT 20.1 SEC (12.0-15.0) H 01/01/19 17:10 INR 1.70 (0.83-1.16) H 01/01/19 17:10 General: intubated, grimacing HEENT: CVL IJ, MMM Respiratory: intubated, FiO2 @ 40% Cardiac: A-paced, no m/r/g GI: soft, nt, nd : martinez Incisions: sternum CDI DVT prophylaxis: SCDs Arterial Line: yes, need for vasopressor, inotropes Martinez: yes, need for accurate I&O's, vasopressors, inotropes CVC: yes, need for ongoing management, labs Chest Tubes: y Pacing Wires: y ICD10 Worksheet Patient Problems: Problems Problem Status Onset Congestive heart failure Acute S/P AVR Acute S/P MVR (mitral valve replacement) Acute S/P atrial septal defect closure Acute S/P left atrial appendage ligation Acute S/P tricuspid valve repair Acute Chronic Disease [facility]/Transitional Care Acute
[2019-01-02] MEDS ORDERED: FUROSEMIDE 20 MG/2 ML VIAL IVP ONE (07:44)
--- NOTE | 2019-01-02 08:56 | GCON ---
[f rep st] CONSULTATION ESTHETICIAN CONSULTATION REFERRING PHYSICIAN: Mateus Ly MD HISTORY: I was asked to see patient by Dr. Mateus Ly. He is examined postoperatively after rece iving explant of TAVR, AVR, MVR, TVA, closure of atrial septal defect. The patient is an 83-year-old white male with extensive past medical history, including gout, diverticulosis, valvular heart disea se with a TAVR and post mitral clipping and congestive heart failure. Again, he is examined postoper atively. Currently, he is somewhat agitated on mechanical ventilation. All history is gleaned from the medical record. His postoperative course was complicated by coagulopathy and hypotension. He cu rrently has a Clute-Susie catheter in place. REVIEW OF SYSTEMS: 10-point review of systems was attempted, but unable to perform, secondary to mec hanical ventilation. PAST MEDICAL HISTORY: Significant for gout, diverticulosis, valvular heart disease, congestive heart failure. PAST SURGICAL HISTORY: Had a TAVR, mitral clipping, knee arthroscopy, tonsillectomy, appendectomy. ALLERGIES: To erythromycin. FAMILY HISTORY: Noncontributory. SOCIAL HISTORY: No history of tobacco use. Infrequent alcohol use. He is . He is a retired computer technologist. He has excellent family support. PHYSICAL EXAM: VITAL SIGNS: Blood pressure 91/51, pulse 90, respirations 12, temperature 37.5, oxyg en saturation 95% on 40% mechanical ventilation. GENERAL: He is a thin, somewhat malnourished, elde rly white male who is agitated and on mechanical ventilation. HEENT: Eyes are VICKI. EOMI. Throat: Endotracheal tube is in good position. NECK: Supple. No cervical adenopathy. HEART: Regular ra te and rhythm with a 2/6 systolic murmur at left sternal border without radiation. LUNGS: Diminishe d breath sounds. There are a few bibasilar crackles. There is also some chest tube noise. No wheez e. ABDOMEN: Soft, nontender. Bowel sounds are present in all 4 quadrants. EXTREMITIES: No clubbi ng, cyanosis, or edema. LABORATORY/IMAGING: White count 7.9, hemoglobin 9, hematocrit 26, platelet count is 83. INR is 1.7. Sodium 145, potassium 4.4, chloride 109, CO2 is 24, BUN is 33, creatinine 1.2, glucose is 84. Luz rial blood gas: pH 7.37, pCO2 of 40, pO2 of 83, bicarb 24, oxygen saturation 96%. This is on IMV of 14, tidal volume 550, plus 5 of PEEP, 40%. Chest [id number] by myself is grossly under-penetrated. Endotracheal tube is in good position. Clute-Susie catheter is in the right pulmonary artery. Chest tubes are in place. Possible diffuse pul monary edema. ASSESSMENT: 1. Status post explant of transcatheter aortic valve replacement, AVR, MVR, TVA, closure of atrial s eptal defect. 2. Acute respiratory failure, secondary to above. 3. Shock, on multiple pressures. 4. History of congestive heart failure. 5. History of diverticulosis. 6. Tonsillectomy. 7. Thrombocytopenia. 8. Agitation. RECOMMENDATIONS: 1. Will obtain a CPAP trial and weaning parameters. Anticipate extubation later on this morning. 2. DVT and PE prophylaxis, holding anticoagulation for now. 3. Stress ulcer prophylaxis. 4. Wean pressors as tolerated. 5. PT and OT. 6. Early ambulation. 7. Close cardiovascular monitoring. Thank you so much for allowing me to participate in the care of this interesting patient. Brayden gutierres along with you. /[id number]/MODL
[2019-01-02] MEDS: MUPIROCIN 2% 22 GM OINT NS SCH (09:51)
[2019-01-02] MEDS: CHLORHEXIDINE GLUCONATE 15 ML UDL PO SCH ×2 (09:52→20:37)
[2019-01-02] MEDS ORDERED: guaiFENesin 200 MG/10 ML UDL PO PRN (11:13)
[2019-01-02] MEDS ORDERED: ALBUMIN 5% 250 ML BOTTLE IV ONE (11:25)
--- NOTE | 2019-01-02 14:34 | ASMTCMCOM ---
CM Note CM Note Notes: Pt has been transferred to ICU. Pt is not doing well post valve replacement. Pt coded almost twice. Therapies are both recommending inpatient rehab. CM discussed w/ Oscar. Oscar will talk over w/ Homer to see if pt would be appropriate for inpatient rehab level of care. CM to follow. Plan: Possible inpatient rehab Date Signed: 01/02/2019 02:33 PM Electronically Signed By:CAPO Ring
--- NOTE | 2019-01-02 15:57 | HOSPPROG ---
Hospitalist Progress Note Assessment/Plan: #Severe MR/mod MS: -explant of TAVR, AVR, MVR, TVA, closure of ASD -complicated with post-op shock, coagulopathy #Hypovolemic shock -transfused 3 units blood, platelets, FFP, albumin -Levophed, Dobutamine #Acute hypoxemic resp failure -extubated today #ABLA: s/p transfusions #FRANKO on CKD: Cr 1.4. Monitor closely with Lasix #Pulm HTN: monitor fluid-balance #NSVT: keep Mg/K at goal #Decompensated diastolic HF: now on PO lasix. BP controlled #DVT ppx: SCDs #Disp: ICU, requiring inotropics, telemetry Subjective: extubated this morning Objective: Vital Signs Temp Pulse Resp BP Pulse Ox 37.4 C 70 20 117/56 L 96 01/02/19 12:00 01/02/19 15:00 01/02/19 15:00 01/02/19 15:00 01/02/19 15:00 Laboratory Results 01/02/19 05:00 01/02/19 12:20 01/01/19 01/02/19 01/03/19 05:59 05:59 05:59 Intake Total 5179.9 240 Output Total 2350 2730 1160 Balance -2350 2449.9 -920 PT 20.1 SEC (12.0-15.0) H 01/01/19 17:10 INR 1.70 (0.83-1.16) H 01/01/19 17:10 - Time Spent With Patient Time Spent with Patient: greater than 35 minutes Time Spent with Patient: Greater than 35 minutes spent on this patients care, greater than 50% of time spent counseling, educating, and coordinating care regarding the above mentioned plan. - Physical Exam Constitutional: other (frail, restless in bed) Eyes: PERRL Ears, Nose, Mouth, Throat: dry mucous membranes Cardiovascular: regular rate and rhythym, other (midline chest incision dressed , chest tubes with sanginous drainage) Genitourinary: martinez in urethra Musculoskeletal: other (left wrist aterial line. Central line R IJ) Neurologic: CN II-XII Intact, No facial droop ICD10 Worksheet Patient Problems: Problems Problem Status Onset Congestive heart failure Acute S/P AVR Acute S/P MVR (mitral valve replacement) Acute S/P atrial septal defect closure Acute S/P left atrial appendage ligation Acute S/P tricuspid valve repair Acute Chronic Disease Mgmt/Transitional Care Acute
[2019-01-02] MEDS ORDERED: ASPIRIN 81 MG CHEWABLE TAB TUBE PRN (16:12)
[2019-01-02] MEDS: ASPIRIN 81 MG CHEWABLE TAB PO SCH (18:20)
[2019-01-02] MEDS: PANTOPRAZOLE SODIUM 40 MG TAB PO SCH (18:20)
[2019-01-02] MEDS: HYDROCODONE/APAP 5/325 TAB PO PRN (20:36)
[2019-01-02] MEDS: CEPACOL LOZENGE PO PRN (20:37)
[2019-01-03] MEDS: HYDROCODONE/APAP 5/325 TAB PO PRN ×3 (04:32→20:18)
[2019-01-03] MEDS: CEPACOL LOZENGE PO PRN (04:34)
[2019-01-03 05:24] LABS: PLATELET COUNT 76 10^3/uL (150-400)
[2019-01-03 05:26] LABS: INR 1.42 (0.83-1.16); PROTIME(PATIENT) 17.5 SEC (12.0-15.0)
[2019-01-03] MEDS: ceFAZolin 2 GM/DEXTROSE 100 ML IV SCH (05:39)
[2019-01-03] MEDS: HEPARIN 5,000 UNIT/0.5 ML INJ SC SCH (05:43)
[2019-01-03] MEDS ORDERED: FUROSEMIDE 20 MG/2 ML VIAL IVP ONE (08:14)
--- NOTE | 2019-01-03 08:29 | SOAPPROG ---
SOAP Progress Note Assessment/Plan: POD#2 Explant of #29 Medtronic Evolut Pro TAVR Aortic valve replacement #23 Magna Ease Explant of x2 MitraClips Mitral valve replacement #29 Magna Mitral Ease Tricuspid valve annuloplasty #28 MC3 ring Primary closure of large atrial septal defect External occlusion of left atrial appendage Drainage of large bilateral pleural effusions Post-operative hypovolemic shock, resolved - Patient had 2 near codes with SBP 40's-50's on POD#0. Required dobutrex, norepi, and multiple crystalloid/colloid infusions for BP support. Very sensitive to hypovolemia/low CVP. Severe MR s/p MitraClip Explant/MVR - Unable to start BB d/t bradycardia. Plan for 8 weeks of anticoagulation. Start coumadin at 2.5 mg PO today. Daily INR. Daily ASA. Hold if platelets drop <50k. Moderate AI s/p TAVR explant/AVR - Moderate PVL pre-op. Successfully explanted and replaced with bioprosthetic valve. TR s/p TVA - Moderate TR pre-op. Closure of ASD - Presumed to be an iatrogenic transseptal puncture 2/ MitraClip procedure. Successfully closed primarily. Post-operative coagulopathy with acute blood loss anemia & thrombocytopenia - Worsened with hypothermia p OR. Transfused 2 plt, 2 FFP, 4 pRBCs. Chest tube too much to pull. Plt 73k today. Plt were 130k prior to OR. Post-operative atrial fibrillation - started 2/6 AM. Asymptomatic with HR in the 50's. Amiodarone not appropriate given lower BP. Monitor Acute renal insufficiency - Creatinine 1.3 on admission. Avoid nephrotoxic medications. Making urine. 1.7 today. Monitor with daily BMPs and q6 K+. Acute on chronic systolic heart failure - admitted on 12/26 for this reason. Secondary to valvular disease. No RWMA with EF 60-65%. Bilateral pleural effusions drained in the OR. Hold home ACEI. Carotid artery disease - Noted on pre-op work-up. 50-69% LICA. Avoid hypotension. Acute pulmonary insufficiency - CXR appears congested. Up in weight. No prior pulmonary disease. Frailty - octogenarian, presented in [place] CHF. Deconditioning noted pre-op. PTOT. Dispo: Lasix 10 mg IV once Start coumadin 2.5 mg PO today Transfer to PCU later today Subjective: Successfully weaned from Norepi/Dobutrex. Art line, martinez, and swan dc'd. Sitting up in chair. Slow afib this AM. Stable. Objective: Vital Signs Temp Pulse Resp BP Pulse Ox 36.4 C 53 L 16 102/54 L 97 01/03/19 07:55 01/03/19 07:55 01/03/19 07:55 01/03/19 07:55 01/03/19 07:55 Laboratory Results 01/03/19 04:46 01/03/19 04:46 01/02/19 01/03/19 01/04/19 05:59 05:59 05:59 Intake Total 5179.9 2517 Output Total 2730 2150 Balance 2449.9 367 PT 17.5 SEC (12.0-15.0) H 01/03/19 05:02 INR 1.42 (0.83-1.16) H 01/03/19 05:02 General: NAD, sitting upright HEENT: CVL IJ, MMM Respiratory: 3L NC O2, breathing unlabored Cardiac: atrial fib in 50's GI: soft : martinez out Incisions: sternum CDI DVT prophylaxis: SCDs, coumadin Arterial Line: out Martinez: out on POD#1 CVC: yes, need for ongoing management, labs Chest Tubes: y Pacing Wires: y ICD10 Worksheet Patient Problems: Problems Problem Status Onset Congestive heart failure Acute S/P AVR Acute S/P MVR (mitral valve replacement) Acute S/P atrial septal defect closure Acute S/P left atrial appendage ligation Acute S/P tricuspid valve repair Acute Chronic Disease Mgmt/Transitional Care Acute
[2019-01-03] MEDS: ASPIRIN 81 MG CHEWABLE TAB PO SCH (09:08)
[2019-01-03] MEDS: PANTOPRAZOLE SODIUM 40 MG TAB PO SCH (09:08)
[2019-01-03] MEDS ORDERED: traMADol 50 MG TAB PO PRN (10:47)
--- NOTE | 2019-01-03 12:22 | PDINTPN ---
Tooling Inspector Progress Note Assessment/Plan: Assessment/plan: * Status post explant of TAVR, aortic valve replacement, mitral valve replacement, TV a an closure of atrial septal defect * Respiratory-stable off mechanical ventilation * Pain-reasonably well controlled * History of congestive * Heart failure * History of gout * VTE prophylaxis * Stress ulcer prophylaxis * PT/OT * Disposition-okay for transfer to PCU Subjective: Sitting up in chair. Resting comfortably. Pain reasonably well controlled. Hungry. Objective: Vital Signs Temp Pulse Resp BP Pulse Ox 36.4 C 52 L 15 106/52 L 99 01/03/19 07:55 01/03/19 10:00 01/03/19 10:00 01/03/19 10:00 01/03/19 10:00 Laboratory Results 01/03/19 04:46 01/02/19 01/03/19 01/04/19 05:59 05:59 05:59 Intake Total 5179.9 2517 440 Output Total 2730 2150 50 Balance 2449.9 367 390 PT 17.5 SEC (12.0-15.0) H 01/03/19 05:02 INR 1.42 (0.83-1.16) H 01/03/19 05:02 - Time Spent With Patient Time Spent With Patient: 35 min of time spent with patient, over 1/2 involved with coordination of care or counseling. Case discussed with nursing Physical Exam - Physical Exam General Appearance: alert, no apparent distress EENT: PERRL/EOMI Neck: non-tender, full range of motion Respiratory: chest non-tender, lungs clear, normal breath sounds Cardiac/Chest: normal peripheral pulses, regular rate, rhythm, systolic murmur Abdomen: normal bowel sounds, non-tender, soft Male Genitalia: deferred Rectal: deferred Skin: normal color, warm/dry Extremities: normal range of motion, non-tender, normal inspection, normal capillary refill Neuro/Psych: alert, normal mood/affect, oriented x 3 ICD10 Worksheet Patient Problems: Problems Problem Status Onset Congestive heart failure Acute S/P AVR Acute S/P MVR (mitral valve replacement) Acute S/P atrial septal defect closure Acute S/P left atrial appendage ligation Acute S/P tricuspid valve repair Acute Chronic Disease Mgmt/Transitional Care Acute
--- NOTE | 2019-01-03 14:13 | HOSPPROG ---
Hospitalist Progress Note Assessment/Plan: #Severe MR/mod MS: -explant of TAVR, AVR, MVR, TVA, closure of ASD -complicated with post-op shock, coagulopathy #Hypovolemic shock -transfused 3 units blood, platelets, FFP, albumin -Levophed, Dobutamine weaned off #Acute hypoxemic resp failure -extubated on 01/02 #ABLA: s/p transfusions #FRANKO on CKD: Cr 1.7 this AM. Monitor closely with Lasix #Pulm HTN: monitor fluid-balance #NSVT: keep Mg/K at goal #Decompensated diastolic HF: now on PO lasix. BP controlled. 10 mg IVP Lasix ordered this AM by CT Surgery #DVT ppx: SCDs #Disp: Transferred to PCU this afternoon Subjective: Patient with no complaints this AM, reports being tired Objective: Vital Signs Temp Pulse Resp BP Pulse Ox 36.2 C 57 L 22 H 111/58 L 90 L 01/03/19 12:29 01/03/19 12:29 01/03/19 12:29 01/03/19 12:29 01/03/19 12:29 Laboratory Results 01/03/19 04:46 01/03/19 11:45 01/02/19 01/03/19 01/04/19 05:59 05:59 05:59 Intake Total 5179.9 2517 440 Output Total 2730 2150 110 Balance 2449.9 367 330 PT 17.5 SEC (12.0-15.0) H 01/03/19 05:02 INR 1.42 (0.83-1.16) H 01/03/19 05:02 - Physical Exam Constitutional: no apparent distress Ears, Nose, Mouth, Throat: moist mucous membranes Cardiovascular: regular rate and rhythym, systolic murmur Respiratory: no respiratory distress Gastrointestinal: soft, non-tender abdomen, No distension Skin: normal color Neurologic: AAOx3 Psychiatric: interacting appropriately ICD10 Worksheet Patient Problems: Problems Problem Status Onset Congestive heart failure Acute S/P AVR Acute S/P MVR (mitral valve replacement) Acute S/P atrial septal defect closure Acute S/P left atrial appendage ligation Acute S/P tricuspid valve repair Acute Chronic Disease Mgmt/Transitional Care Acute
[2019-01-03] MEDS: NS 1,000 ML IV SCH (14:48)
[2019-01-03] MEDS ORDERED: WARFARIN SODIUM 5 MG TAB PO ONE (16:00)
--- NOTE | 2019-01-03 16:42 | CPEKG ---
Test Reason : OPEN Blood Pressure : / mmHG Vent. Rate : 090 BPM Atrial Rate : 090 BPM P-R Int : 117 ms QRS Dur : 142 ms QT Int : 441 ms P-R-T Axes : 141 115 -59 degrees QTc Int : 540 ms Atrial-ventricular dual-paced rhythm AV pacing is new in comparison to prior ECG Confirmed by Frank Wisdom ([id number]) on 01/03/2019 4:42:35 PM Referred By: Mateus Ly Confirmed By:Frank Wisdom
[2019-01-03] MEDS: ONDANSETRON 4 MG/2 ML VIAL IVP PRN (16:56)
[2019-01-03] MEDS: SENNOSIDES/DOCUSATE SODIUM TAB PO PRN (20:17)
[2019-01-03] MEDS: traMADol 50 MG TAB PO PRN (20:19)
[2019-01-03] MEDS ORDERED: SENNOSIDES/DOCUSATE SODIUM TAB PO SCH (21:00)
[2019-01-03] MEDS: MELATONIN 3 MG TAB PO SCH (22:16)
[2019-01-04] MEDS: NS 1,000 ML IV SCH (00:40)
[2019-01-04] MEDS: HYDROCODONE/APAP 5/325 TAB PO PRN ×5 (05:24→18:24)
[2019-01-04 05:47] LABS: INR 1.37 (0.83-1.16)
[2019-01-04 05:53] LABS: PLATELET COUNT 99 10^3/uL (150-400)
[2019-01-04] MEDS ORDERED: FUROSEMIDE 20 MG/2 ML VIAL IVP ONE (07:43)
[2019-01-04] MEDS: traMADol 50 MG TAB PO PRN (08:39)
[2019-01-04] MEDS: PANTOPRAZOLE SODIUM 40 MG TAB PO SCH (08:39)
[2019-01-04] MEDS: ASPIRIN 81 MG CHEWABLE TAB PO SCH (08:39)
--- NOTE | 2019-01-04 09:17 | SOAPPROG ---
SOAP Progress Note Assessment/Plan: POD#3 Explant of #29 Medtronic Evolut Pro TAVR Aortic valve replacement #23 Magna Ease Explant of x2 MitraClips Mitral valve replacement #29 Magna Mitral Ease Tricuspid valve annuloplasty #28 MC3 ring Primary closure of large atrial septal defect External occlusion of left atrial appendage Drainage of large bilateral pleural effusions Severe MR s/p MitraClip Explant/MVR - Unable to start BB d/t bradycardia. Currently v-paced at 80. Underlying this AM dropped into high 30's. Plan for 8 weeks of anticoagulation. Daily INR with goal 2-3. Daily ASA. Moderate AI s/p TAVR explant/AVR - Moderate PVL pre-op. Successfully explanted and replaced with bioprosthetic valve. TR s/p TVA - Moderate TR pre-op. Closure of ASD - Presumed to be an iatrogenic transseptal puncture 2/2 MitraClip procedure. Successfully closed primarily. Post-operative coagulopathy with acute blood loss anemia & thrombocytopenia - Transfused 3 plt, 3 FFP, 4 pRBCs. Chest tube output trending down. H/H and platelets stabilizing. Post-operative atrial fibrillation, resolved - started 2/6 AM. Asymptomatic with HR in the 50's. Amiodarone not given 2/2 lower BP. Back in sinus 01/04. Acute renal insufficiency - Creatinine 1.3 on admission. Avoid nephrotoxic medications. 1.6 today. Monitor with daily BMPs and q6 K+. Potassium high- normal 4.8-5.2. Needs gentle diuresis. Lasix today. Acute on chronic systolic heart failure - admitted on 12/26 for this reason. Secondary to valvular disease. No RWMA with EF 60-65%. Bilateral pleural effusions drained in the OR. Hold home ACEI. Carotid artery disease - Noted on pre-op work-up. 50-69% LICA. Avoid hypotension. Acute pulmonary insufficiency - CXR appears congested. Up in weight. No prior pulmonary disease. Frailty - octogenarian, presented in [place] CHF. Deconditioning noted pre-op. PTOT. Dispo: Cardiology consult for possible PPM Lasix 20 mg IV once Continue coumadin 2.5 mg PO today Plan to remove R chest tube today Post-op TTE likely this weekend Anticipate SNF early next week Subjective: Dizzy and oliguric last evening. Paced VVI 80 and given fluids. Feels better today. Objective: Vital Signs Temp Pulse Resp BP Pulse Ox 36.5 C 80 15 130/79 H 95 01/04/19 07:07 01/04/19 07:07 01/04/19 07:07 01/04/19 07:07 01/04/19 07:07 Laboratory Results 01/04/19 05:20 01/04/19 05:20 01/03/19 01/04/19 01/05/19 05:59 05:59 05:59 Intake Total 2517 2340 Output Total 2150 940 Balance 367 1400 PT 17.0 SEC (12.0-15.0) H 01/04/19 05:20 INR 1.37 (0.83-1.16) H 01/04/19 05:20 General: NAD, sitting upright HEENT: CVL IJ, MMM Respiratory: 11L NC O2, breathing unlabored Cardiac: v-paced GI: soft : martinez out Incisions: sternum CDI DVT prophylaxis: SCDs, coumadin Arterial Line: out Martinez: out on POD#1 CVC: yes, need for ongoing management, labs Chest Tubes: y Pacing Wires: y ICD10 Worksheet Patient Problems: Problems Problem Status Onset Congestive heart failure Acute S/P AVR Acute S/P MVR (mitral valve replacement) Acute S/P atrial septal defect closure Acute S/P left atrial appendage ligation Acute S/P tricuspid valve repair Acute Chronic Disease Mgmt/Transitional Care Acute
--- NOTE | 2019-01-04 10:56 | PDCARPN ---
Cardiology Progress Note Chief Complaint: Weakness and fatigue Assessment/Plan: Assessment: Patient is an 83 y/o male, well known to [employer], with history of aortic, mitral and tricuspid valve pathology, who sought care in [place] with mitraclip and TAVR, but failure of the mitral clip was noted after presentation to hospital with new onset heart failure. Today, the patient is POD#3 for AVR, MVR and TVr with ASD closure, and LA ligation, with noted atrial fibrillation (paroxysmally ) and salvos of what appeared to be junctional rhythm. Ambulation yesterday was tolerated. Patient is up in chair today (with removal of chest tube ongoing ). Family was at bedside. Consultation with cardiology to determine if there is need for PPM implant. On telemetry at present, the patient is V pacing. No complaints of chest pain (outside of the complaints from mild sternal incisional pain). Ongoing use of coumadin post operatively. Plan: (1) Cardiology will follow with patient today. Would like to ensure that PPM is indicated, and this is a difficult decision (given that some of the irritability could be secondary to the CT surgery that has recently been completed. (2) Would maintain therapy on coumadin for post operative period (3) Lasix should continue (4) Would plan on echocardiography prior to discharge Cardiology will continue to follow this patient. Subjective: Patient feeling fair today. Fatigue and weakness continue to be noted Reviewed/Discussed With: family, hospitalist, multidisciplinary team Objective: Vital Signs (8 Hrs) Temp Pulse Resp BP Pulse Ox 01/04/19 07:07 36.5 C 80 15 130/79 H 95 01/04/19 05:00 36.4 C 80 16 145/85 H 94 Intake/Output (24 Hrs) 01/03/19 01/04/19 01/05/19 05:59 05:59 05:59 Intake Total 2517 2340 200 Output Total 2150 940 385 Balance 367 1400 -185 Intake: Oral (ml) 980 640 200 IV Infused (ml) 1237 1500 Albumin 5% 250 ml @ 100 250 mls/hr IV PRN PRN Rx#: [id number] DOBUTamine 500 mg In D5w 42 250 ml @ Titrate IV CONT HEIDI Rx#:[id number] Norepinephrine Bitartrate 88 16 mg In Ns 250 ml @ Per Protocol IV CONT HEIDI Rx# :[id number] Ns 1,000 ml @ 100 mls/hr 1400 IV CONT HEIDI Rx#: [id number] Ns 1,000 ml @ 25 mls/hr 857 IV CONT HEIDI Rx#: [id number] ceFAZolin 2 GM/DEXTROSE 100 100 ml @ 200 mls/hr IV Q8HRS HEIDI Rx#:[id number] Packed Red Blood Cells ( 300 ml) Platelets (ml) 200 Output: Urine (ml) 830 400 250 Catheter 385 Toilet 150 250 Urinal 445 250 Chest Tube Output (ml) 1320 540 135 Location 1 Mediastinal 1320 220 80 Location 2 Right Pleural 140 25 Location 3 Left Pleural 180 30 Other: Weight 66.2 kg 64.3 kg Number of Voids Toilet 2 1 Urinal 1 1 Bladder Scan Volume (ml) Urinal 226 Result Diagrams: 01/04/19 05:20 01/04/19 05:20 Telemetry: ventricular paced rhythm - Physical Exam Constitutional: healthy appearing, no apparent distress Eyes: PERRL, EOMI Ears, Nose, Mouth, Throat: moist mucous membranes Cardiovascular: regular rate and rhythm, pulses symmetric bilat, No jugular vein distention Peripheral Pulses: 2+: dorsalis-pedis (R), dorsalis-pedis (L) Respiratory: clear to auscultate bilat, other (course breath sounds) Gastrointestinal: normoactive bowel sounds Skin: no edema Musculoskeletal: muscular tenderness Neurologic: AAOx3, CN II-XII grossly intact Psychiatric: cooperative, interactive, following commands ICD10 Worksheet Patient Problems: Problems Problem Status Onset Congestive heart failure Acute S/P AVR Acute S/P MVR (mitral valve replacement) Acute S/P atrial septal defect closure Acute S/P left atrial appendage ligation Acute S/P tricuspid valve repair Acute Chronic Disease [facility]/Transitional Care Acute
--- NOTE | 2019-01-04 12:18 | ASMTCMCOM ---
CM Note CM Note Notes: 01/04/2019 Case Management Note Met w/pt and family members to discuss d/c needs. Provided SNF rehab list. Faxed referrals to [facility], [facility], [facility]. Anticipating d/c early to mid next week. Case Management d/c poc: SNF rehab pending acceptance. Case Management to follow. Date Signed: 01/04/2019 12:17 PM Electronically Signed By:Mabel Luevano RN
[2019-01-04] MEDS: ONDANSETRON 4 MG/2 ML VIAL IVP PRN (12:39)
[2019-01-04] MEDS: PSYLLIUM PO SCH (15:45)
[2019-01-04] MEDS ORDERED: WARFARIN SODIUM 5 MG TAB PO ONE ×2 (16:00→18:30)
[2019-01-04] MEDS ORDERED: hydrALAZINE 20 MG/ML VIAL IVP PRN (17:45)
[2019-01-04] MEDS ORDERED: FUROSEMIDE 100 MG/10 ML VIAL IVP ONE (17:47)
[2019-01-04] MEDS: MELATONIN 3 MG TAB PO SCH (22:01)
[2019-01-05 07:41] LABS: INR 2.01 (0.83-1.16); PROTIME(PATIENT) 22.8 SEC (12.0-15.0)
[2019-01-05] MEDS: ASPIRIN 81 MG CHEWABLE TAB PO SCH (08:24)
[2019-01-05] MEDS: PANTOPRAZOLE SODIUM 40 MG TAB PO SCH (08:24)
[2019-01-05] MEDS: ONDANSETRON 4 MG/2 ML VIAL IVP PRN (08:24)
[2019-01-05] MEDS: PSYLLIUM PO SCH (08:25)
[2019-01-05] MEDS ORDERED: traMADol 50 MG TAB PO PRN (08:51)
--- NOTE | 2019-01-05 09:12 | SOAPPROG ---
[facility] Progress Note Assessment/Plan: POD #4: s/p explant of #29 Medtronic Evolut Pro TAVR, AVR with #23 Magna bioprosthesis, Explant of Mitral Clips x2, MVR with #29 Magna bioprosthesis, TVA with #28 MC3, closure ASD, ligation AUTUMN Severe MR with h/o mitral clips s/p explant with MVR - Thromboprophylaxis with Coumadin, INR goal 2-3, duration at least 8 weeks, longer pending rhythm stability - Lifelong adjunctive ASA - Coumadin to be held today d/t large jump in INR - Tubes to be removed today - Post-op routine ECHO ordered Moderate AI with h/o TAVR s/p explant of with AVR - Plan as per MVR Moderate TR s/p TVA - Plan as per MVR Closure of ASD - Stable Post-operative coagulopathy with acute blood loss anemia - Stable s/p multiple transfusions Post-operative atrial fibrillation/flutter - Rates 50-70 with adequate BP - Thromboprophylaxis as per MVR, duration pending stability of rhythm - PW to remain, VVI 40 - Cardiology following for possible PPM CKD, stage 3 - Cr stabilized - Avoid nephrotoxins 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 Nausea when attempting to eat. Objective: Vital Signs Temp Pulse Resp BP Pulse Ox 36.4 C 67 13 156/74 H 97 01/05/19 07:58 01/05/19 07:58 01/05/19 07:58 01/05/19 07:58 01/05/19 07:58 Laboratory Results 01/05/19 07:00 01/05/19 07:00 01/04/19 01/05/19 01/06/19 05:59 05:59 05:59 Intake Total 2340 900 Output Total 940 2445 Balance 1400 -1545 PT 22.8 SEC (12.0-15.0) H 01/05/19 07:00 INR 2.01 (0.83-1.16) H 01/05/19 07:00 Physical Exam - Physical Exam General Appearance: alert, no apparent distress, thin EENT: No scleral icterus (R), No scleral icterus (L) Neck: normal inspection Respiratory: No respiratory distress Cardiac/Chest: extra beats, irregularly irregular Abdomen: non-tender, soft, No distended Skin: normal color, warm/dry Extremities: No pedal edema Neuro/Psych: no motor/sensory deficits, alert, normal mood/affect, oriented x 3 ICD10 Worksheet Patient Problems: Problems Problem Status Onset Congestive heart failure Acute S/P AVR Acute S/P MVR (mitral valve replacement) Acute S/P atrial septal defect closure Acute S/P left atrial appendage ligation Acute S/P tricuspid valve repair Acute Chronic Disease Mgmt/Transitional Care Acute
--- NOTE | 2019-01-05 12:42 | PDCARPN ---
Cardiology Progress Note Chief Complaint: Patient feeling fair today. Poor sleep. Minor chest pains (at site of the chest tube removal). Less frequent need for pacing has been noted (heart rate today was 60 bpm). Assessment/Plan: Assessment: 01-05-19 Patient feeling fair today. Fatigue is noted moreso today. Chest tubes removed. Less frequent pacing noted today. Ambulation yesterday was better tolerate than today. Patient with concerns about poor PO intake of food. POD# 4 today for AVR, MVR, and TVr. SNF arrangements are being made. Renal function has improved (creatinine with normalization). INR was noted to be 2 today. Anemia is resolving. family was at bedside. Pending post surgical echo. 01-04-19 Patient is an 83 y/o male, well known to [facility], with history of aortic, mitral and tricuspid valve pathology, who sought care in [place] with mitraclip and TAVR, but failure of the mitral clip was noted after presentation to hospital with new onset heart failure. Today, the patient is POD#3 for AVR, MVR and TVr with ASD closure, and LA ligation, with noted atrial fibrillation (paroxysmally ) and salvos of what appeared to be junctional rhythm. Ambulation yesterday was tolerated. Patient is up in chair today (with removal of chest tube ongoing ). Family was at bedside. Consultation with cardiology to determine if there is need for PPM implant. On telemetry at present, the patient is V pacing. No complaints of chest pain (outside of the complaints from mild sternal incisional pain). Ongoing use of coumadin post operatively. Plan: (1) At present, pacer does not appear to be needed (2) Ongoing OT/PT work (3) Outpatient cardiac rehab (4) SNF arrangements being made (5) Echocardiography (post surgical) is pending Subjective: Patient feeling more tired today. Reviewed/Discussed With: family Objective: Vital Signs (8 Hrs) Temp Pulse Resp BP Pulse Ox 01/05/19 07:58 36.4 C 67 13 156/74 H 97 Intake/Output (24 Hrs) 01/04/19 01/05/19 01/06/19 05:59 05:59 05:59 Intake Total 2340 900 Output Total 940 2445 50 Balance 1400 -1545 -50 Intake: Oral (ml) 640 700 IV Infused (ml) 1500 200 Ns 1,000 ml @ 100 mls/hr 1400 200 IV CONT [facility] Rx#: [id number] ceFAZolin 2 GM/DEXTROSE 100 100 ml @ 200 mls/hr IV Q8HRS [facility] Rx#:[id number] Platelets (ml) 200 Output: Urine (ml) 400 2100 50 Toilet 150 1725 Urinal 250 375 50 Chest Tube Output (ml) 540 345 Location 1 Mediastinal 220 80 Location 2 Right Pleural 140 90 Location 3 Left Pleural 180 175 Other: Weight 64.3 kg 61.7 kg Number of Voids Toilet 2 2 Urinal 1 1 Bladder Scan Volume (ml) Urinal 226 Result Diagrams: 01/05/19 07:00 01/05/19 07:00 [id number] Ventricular paced rhythm Echocardiogram: pending - Physical Exam Constitutional: healthy appearing Eyes: PERRL, EOMI Ears, Nose, Mouth, Throat: moist mucous membranes Cardiovascular: regular rate and rhythm, pulses symmetric bilat, No jugular vein distention Peripheral Pulses: 2+: dorsalis-pedis (R), dorsalis-pedis (L) Respiratory: clear to auscultate bilat, reduced air movement Gastrointestinal: normoactive bowel sounds Skin: no rashes, no edema Musculoskeletal: muscular tenderness Neurologic: AAOx3, CN II-XII grossly intact Psychiatric: cooperative, interactive, following commands ICD10 Worksheet Patient Problems: Problems Problem Status Onset Congestive heart failure Acute S/P AVR Acute S/P MVR (mitral valve replacement) Acute S/P atrial septal defect closure Acute S/P left atrial appendage ligation Acute S/P tricuspid valve repair Acute Chronic Disease [facility]/Transitional Care Acute
--- NOTE | 2019-01-05 15:32 | ECHO ---
[email or web address] [address] [address] Main: [phone] Fax: Transthoracic Echocardiogram Name: JOHN JIMENEZ MR#: [id number] Study Date: 01/05/2019 Study Time: 01:19 PM Date of : 1935 Age: 83 year(s) Height: 172.7 cm (68 in.) Weight: 61.69 kg (136 lb.) BSA: 1.73 m2 Gender: Male Examination: Echo Indication: MVR#29 Magna, AVR #23 Magna, TVA #28 MCR, ASD closure Image Quality: Fair Contrast: Requested by: Santosh Alcantar BP: 167 mmHg/66 mmHg Heart Rate: Rhythm: Indication: MVR#29 Magna, AVR #23 Magna, TVA #28 MCR, ASD closure Procedure Staff Sample Wrapper: Meryl Beatty [facility] Reading Physician: Clement Javed MD Requesting Provider: Conclusions: No pericardial effusion. Ejection fraction 55%. Septal wall motion abnormalities consistent with postoperative state. Biatrial enlargement. Mitral valve prosthesis with a maximum gradient of 10 mm of mercury and mean gradient of 2 mm of mercury. Aortic valve prosthesis with peak gradient of 13 mm of mercury with a mean gradient of 7 mm of mercury. Tricuspid valve ring with trace regurgitation. Measurements: Chambers Valvular Assessment AV/MV Valvular Assessment TV/PV Normal Normal Normal Name Value Range Name Value Range Name Value Range Ao Carlota (MM): 3.4 cm (2.2 cm-3.7 AV meanP mmHg ( - ) TV Vmax: 1.00 m/s (0.3 m/s-0.7 cm) MV E Vmax: 1.63 m/s ( - ) m/s) LVEF (MOD4): 60 % (>=55 %) MV A Vmax: 0.37 m/s ( - ) TV Vmean: 0.60 m/s ( - ) EF Range: 55-60 % MV E/A: 4.41 ( - ) TV PGmax: 4 mmHg ( - ) MV meanP mmHg ( - ) TV PGmean: 2 mmHg ( - ) MV PHT: 0.079 s ( - ) TV VTI: 32.20 cm ( - ) MVA (PHT): 2.8 s ( - ) Continued Measurements: Chambers Valvular Assessment AV/MV Name Value Name Value LADs: 4.2 cm MV DecTime: 310 m/s LADs Lon.8 cm MV VTI: 47.20 cm LA Area: 23.5 cm2 Additional Vessels Patient: JOHN JIMENEZ Study Date: 01/05/2019 Page 1 of 2 01:19 PM Name Value Ao Ascendin.6 cm Findings: Left Ventricle: Normal size left ventricle. No LV hypertrophy. Normal global systolic LV function. The ejection fraction is estimated to be 55-60 %. LV septal motion consistent with conduction abnormality/post-op state.. Right Ventricle: Normal size right ventricle. Left Atrium: The left atrium is moderately dilated. Right Atrium: The right atrium is mildly dilated. Mitral Valve: A bioprosthetic mitral valve is in place.. Trivial MV prosthesis regurgitation. MV max PG is 10mmHG. MV mean PG is 2mmHG.. Aortic Valve: The aortic valve is a bioprosthesis. No prosthesis regurgitation. AV max PG is 13mmHG. AV mean PG is 7mmHG.. Tricuspid Valve: There is a tricuspid valve ring. Trivial prosthesis regurgitation. Pulmonic Valve: The pulmonic valve is normal in appearance and function. Trivial pulmonic valve regurgitation. Aorta: The aorta is normal. Pericardium: No pericardial effusion. (No Signature Object) Patient: JOHN JIMENEZ Study Date: 01/05/2019 Page 2 of 2 01:19 PM [id number]
[2019-01-05] MEDS: SENNOSIDES/DOCUSATE SODIUM TAB PO PRN (22:02)
[2019-01-05] MEDS: MELATONIN 3 MG TAB PO SCH (22:02)
[2019-01-06 06:31] LABS: INR 1.77 (0.83-1.16); PROTIME(PATIENT) 20.7 SEC (12.0-15.0)
--- NOTE | 2019-01-06 07:05 | SOAPPROG ---
[facility] Progress Note Assessment/Plan: POD #5: s/p explant of #29 Medtronic Evolut Pro TAVR, AVR with #23 Magna bioprosthesis, Explant of Mitral Clips x2, MVR with #29 Magna bioprosthesis, TVA with #28 MC3, closure ASD, ligation AUTUMN Severe MR with h/o mitral clips s/p explant with MVR - Thromboprophylaxis with Coumadin, INR goal 2-3, duration at least 8 weeks, longer pending rhythm stability - Lifelong adjunctive ASA - Coumadin 1mg today. INR 1.7. 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 DVT prophylaxis - SCDs Disposition - SNF sometime next week once medically stable - Family chose [facility]. Subjective: "I had a rough night of sleep last night." Patient reports good pain control. Objective: Vital Signs Temp Pulse Resp BP Pulse Ox 36.7 C 63 20 169/93 H 98 01/06/19 03:51 01/06/19 03:51 01/06/19 03:51 01/06/19 03:51 01/06/19 03:51 Laboratory Results 01/05/19 07:00 01/05/19 07:00 01/05/19 01/06/19 01/07/19 05:59 05:59 05:59 Intake Total 900 900 Output Total 2445 875 Balance -1545 25 PT 20.7 SEC (12.0-15.0) H 01/06/19 05:55 INR 1.77 (0.83-1.16) H 01/06/19 05:55 Physical Exam - Physical Exam General Appearance: WD/WN, alert, no apparent distress Neck: supple Respiratory: lungs clear, other (no wheezing, rhonchi, rales.) Cardiac/Chest: irregularly irregular, other (no murmur or rubs. sternum stable , sternotomy c/d/i.) Abdomen: normal bowel sounds, non-tender, soft, other (non-distended) Skin: normal color, warm/dry Extremities: other (warm, minimal lower extremity edema) Neuro/Psych: alert, normal mood/affect, oriented x 3 ICD10 Worksheet Patient Problems: Problems Problem Status Onset Congestive heart failure Acute S/P AVR Acute S/P MVR (mitral valve replacement) Acute S/P atrial septal defect closure Acute S/P left atrial appendage ligation Acute S/P tricuspid valve repair Acute Chronic Disease Mgmt/Transitional Care Acute
[2019-01-06] MEDS: ASPIRIN 81 MG CHEWABLE TAB PO SCH (08:51)
[2019-01-06] MEDS: PANTOPRAZOLE SODIUM 40 MG TAB PO SCH (08:51)
[2019-01-06] MEDS: PSYLLIUM PO SCH (08:51)
[2019-01-06] MEDS: ONDANSETRON DISINTEGRATING 4 MG TAB PO PRN (11:16)
--- NOTE | 2019-01-06 11:55 | ASMTCMCOM ---
CM Note CM Note Notes: 01/06/2019 Case Management Note Met w/ pt and son. Family has toured mutliple facilities and chosen [facility]. Case Management d/c poc: [facility] SN[facility] rehab Case Management to follow. Date Signed: 01/06/2019 11:54 AM Electronically Signed By:Mabel Luevano RN
--- NOTE | 2019-01-06 12:54 | PDCARPN ---
Cardiology Progress Note Assessment/Plan: Assessment: MV replacement (prior failed mitraclip) AV replacement (prior failed TAVR) AFIb Plan: -Does not need permanent pacemaker at this time -Hemodynamically stable - would rate control AF, continue warfarin 01/06/19 12:53 Subjective: reports no new symptoms Reviewed/Discussed With: multidisciplinary team Objective: Vital Signs (8 Hrs) Temp Pulse Resp BP Pulse Ox 01/06/19 12:00 36.6 C 78 18 144/71 H 98 01/06/19 07:28 36.7 C 68 18 117/85 H 95 Intake/Output (24 Hrs) 01/05/19 01/06/19 01/07/19 11:59 11:59 11:59 Intake Total 700 900 Output Total 2110 1200 Balance -1410 -300 Intake: Oral (ml) 500 900 IV Infused (ml) 200 Ns 1,000 ml @ 100 mls/hr 200 IV CONT [facility] Rx#: [id number] Output: Urine (ml) 1900 1200 Toilet 1475 800 Urinal 425 400 Chest Tube Output (ml) 210 Location 2 Right Pleural 65 Location 3 Left Pleural 145 Other: Weight 61.7 kg 61.1 kg Number of Voids Toilet 2 Urinal 1 Number of Stools Toilet 1 Result Diagrams: 01/05/19 07:00 01/05/19 07:00 Telemetry: AF ICD10 Worksheet Patient Problems: Problems Problem Status Onset S/P tricuspid valve repair Acute S/P atrial septal defect closure Acute S/P left atrial appendage ligation Acute S/P MVR (mitral valve replacement) Acute S/P AVR Acute Chronic Disease Mgmt/Transitional Care Acute Congestive heart failure Acute
[2019-01-06] MEDS: BIOTENE DRY MOUTH ORAL RINSE 237 ML BTL MM PRN (15:35)
[2019-01-06] MEDS ORDERED: WARFARIN SODIUM 1 MG TAB PO ONE (16:00)
[2019-01-06] MEDS: MELATONIN 3 MG TAB PO SCH (21:29)
[2019-01-06] MEDS: clonazePAM 0.5 MG TAB PO SCH (21:29)
[2019-01-07 05:10] LABS: INR 1.57 (0.83-1.16); PROTIME(PATIENT) 18.9 SEC (12.0-15.0)
--- NOTE | 2019-01-07 07:34 | SOAPPROG ---
[facility] Progress Note Assessment/Plan: POD #6: s/p explant of #29 Medtronic Evolut Pro TAVR, AVR with #23 Magna bioprosthesis, Explant of Mitral Clips x2, MVR with #29 Magna bioprosthesis, TVA with #28 MC3, closure ASD, ligation AUTUMN Severe MR with h/o mitral clips s/p explant with MVR - Thromboprophylaxis with Coumadin, INR goal 2-3, duration at least 8 weeks, longer pending rhythm stability - Lifelong adjunctive ASA - INR 1.57. Coumadin 2mg today. - Post-op routine ECHO showed EF 55%, peak MV grad 10, mean MV grad 2, peak AV grad 13, mean AV grad 7, trace TR. Moderate AI with h/o TAVR s/p explant of with AVR - Plan as per MVR Moderate TR s/p TVA - Plan as per MVR Closure of ASD - Stable Post-operative coagulopathy with acute blood loss anemia - Stable s/p multiple transfusions Post-operative atrial fibrillation/flutter - Remains in Afib/flutter 50-70's, with heart rate occasionally dropping into the 40's with frequent PVCs. 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 - Denies vomiting and abdominal pain. Passing flatus and +BM. - Scop patch added - GI to consult in am - Continue full liquid diet Insomnia - On home Melatonin 12mg Qhs and Clonazepam 0.5mg Qhs. DVT prophylaxis - SCDs Disposition - SNF sometime next week once medically stable - Family chose [facility]. Subjective: Patient reports persistent nausea. Denies vomiting or abd pain. Reports adequate surgical pain control. Objective: Vital Signs Temp Pulse Resp BP Pulse Ox 36.8 C 76 20 158/79 H 98 01/07/19 03:51 01/07/19 03:51 01/07/19 03:51 01/07/19 03:51 01/07/19 03:51 Laboratory Results 01/05/19 07:00 01/07/19 03:30 01/06/19 01/07/19 01/08/19 05:59 05:59 05:59 Intake Total 900 300 Output Total 875 675 200 Balance 25 -375 -200 PT 18.9 SEC (12.0-15.0) H 01/07/19 03:30 INR 1.57 (0.83-1.16) H 01/07/19 03:30 Physical Exam - Physical Exam General Appearance: WD/WN, alert, no apparent distress Neck: supple Respiratory: lungs clear, normal breath sounds, decreased breath sounds (bases) Cardiac/Chest: irregularly irregular, other (No murmurs or rubs. Sternum stable , sternotomy C/D/I) Abdomen: normal bowel sounds, non-tender, soft, other (Non-distended.) Skin: normal color, warm/dry Extremities: other (Warm, minimal lower extremity edema) Neuro/Psych: alert, normal mood/affect, oriented x 3 ICD10 Worksheet Patient Problems: Problems Problem Status Onset Congestive heart failure Acute S/P AVR Acute S/P MVR (mitral valve replacement) Acute S/P atrial septal defect closure Acute S/P left atrial appendage ligation Acute S/P tricuspid valve repair Acute Chronic Disease Mgmt/Transitional Care Acute
[2019-01-07] MEDS: PANTOPRAZOLE SODIUM 40 MG TAB PO SCH (09:32)
[2019-01-07] MEDS: ASPIRIN 81 MG CHEWABLE TAB PO SCH (09:32)
[2019-01-07] MEDS: BIOTENE DRY MOUTH ORAL RINSE 237 ML BTL MM PRN (09:32)
[2019-01-07] MEDS: ONDANSETRON DISINTEGRATING 4 MG TAB PO PRN (09:32)
[2019-01-07] MEDS: PSYLLIUM PO SCH (09:32)
[2019-01-07] MEDS ORDERED: PROTOCOL POTASSIUM 1 DOSE MISC PRN (10:48)
[2019-01-07] MEDS ORDERED: PROTOCOL MAGNESIUM 1 DOSE IV PRN (10:48)
--- NOTE | 2019-01-07 11:28 | PDCARPN ---
Cardiology Progress Note Assessment/Plan: Assessment: MV replacement (prior failed mitraclip) AV replacement (prior failed TAVR) AFIb Plan: -Does not need permanent pacemaker at this time -Hemodynamically stable - would rate control AF, continue warfarin -patient had several questions regarding management of atrial fibrillation which were answered. Would consider cardioversion after 4-6 weeks of surgery to try and maintain sinus rhythm. May need short-term antiarrhythmic drug therapy 01/07/19 11:27 Subjective: Feels well, offers no complaint. in room. Reviewed/Discussed With: family, multidisciplinary team (Dr. London Coronel) Time Spent with Patient: greater than 25 minutes Time Spent with Patient: Greater than 25 minutes spent on this patients care, greater than 50% of time spent counseling, educating, and coordinating care regarding the above mentioned plan. Objective: Vital Signs (8 Hrs) Temp Pulse Resp BP Pulse Ox 01/07/19 03:51 36.8 C 76 20 158/79 H 98 Intake/Output (24 Hrs) 01/05/19 01/06/19 01/07/19 11:59 11:59 11:59 Intake Total 700 900 300 Output Total 2110 1200 600 Balance -1410 -300 -300 Intake: Oral (ml) 500 900 300 IV Infused (ml) 200 Ns 1,000 ml @ 100 mls/hr 200 IV [facility] Rx#: [id number] Output: Urine (ml) 1900 1200 600 Toilet 1475 800 100 Urinal 425 400 500 Chest Tube Output (ml) 210 Location 2 Right Pleural 65 Location 3 Left Pleural 145 Other: Weight 61.7 kg 61.1 kg 60.6 kg Number of Voids Toilet 2 1 Urinal 1 Number of Stools Toilet 1 Bladder Scan Volume (ml) Urinal 197 Result Diagrams: 01/05/19 07:00 01/07/19 03:30 Telemetry: Atrial fibrillation, PVCs ICD10 Worksheet Patient Problems: Problems Problem Status Onset S/P tricuspid valve repair Acute S/P atrial septal defect closure Acute S/P left atrial appendage ligation Acute S/P MVR (mitral valve replacement) Acute S/P AVR Acute Chronic Disease Mgmt/Transitional Care Acute Congestive heart failure Acute
[2019-01-07] MEDS: TAMSULOSIN HCL 0.4 MG CAP PO SCH (12:40)
[2019-01-07] MEDS: SCOPOLAMINE HYDROBROMIDE 1 MG/3 DAYS PATCH TD SCH (12:40)
[2019-01-07] MEDS ORDERED: WARFARIN SODIUM 2 MG TAB PO ONE (16:00)
[2019-01-07] MEDS: CALCIUM CARBONATE 500 MG TAB PO SCH (21:09)
[2019-01-07] MEDS: MELATONIN 3 MG TAB PO SCH (21:10)
[2019-01-07] MEDS: clonazePAM 0.5 MG TAB PO SCH (21:10)
[2019-01-08 04:31] LABS: INR 1.65 (0.83-1.16); PROTIME(PATIENT) 19.6 SEC (12.0-15.0)
--- NOTE | 2019-01-08 07:40 | SOAPPROG ---
[facility] Progress Note Assessment/Plan: POD #7: s/p explant of #29 Medtronic Evolut Pro TAVR, AVR with #23 Magna bioprosthesis, Explant of Mitral Clips x2, MVR with #29 Magna bioprosthesis, TVA with #28 MC3, closure ASD, ligation AUTUMN Severe MR with h/o mitral clips s/p explant with MVR - Thromboprophylaxis with Coumadin, INR goal 2-3, duration at least 8 weeks, longer pending rhythm stability - Lifelong adjunctive ASA - Post-op routine ECHO without issues Moderate AI with h/o TAVR s/p explant of with AVR - Plan as per MVR Moderate TR s/p TVA - Plan as per MVR Closure of ASD - Stable Post-operative coagulopathy with acute blood loss anemia - Stable s/p multiple transfusions Post-operative atrial fibrillation/flutter - Rates 50-70 with adequate BP - Thromboprophylaxis as per MVR, duration pending stability of rhythm - PPM not needed - Beta-karen avoided d/t bradycardia CKD, stage 3 - Cr stabilized - Avoid nephrotoxins Acute on chronic class 4 diastolic CHF - Currently medically optimized, continue Lasix PRN - Further medical mgmt (TAMANNA/ARB) if/when appropriate Post-op Nausea - Abdominal exam benign - Lipase elevated - GI evaluated pt - plan is to follow Lipase, medicate with Zofran prior to meals, calorie count DVT prophylaxis - SCDs Disposition - SNF once medically stable Subjective: Still nausea, denies emesis. Pain well-controlled. Denies SOB. Objective: Vital Signs Temp Pulse Resp BP Pulse Ox 36.3 C 82 14 160/72 H 99 01/08/19 07:34 01/08/19 07:34 01/08/19 07:34 01/08/19 07:34 01/08/19 07:34 Laboratory Results 01/05/19 07:00 01/08/19 03:20 01/07/19 01/08/19 01/09/19 05:59 05:59 05:59 Intake Total 300 1580 Output Total 675 1600 Balance -375 -20 PT 19.6 SEC (12.0-15.0) H 01/08/19 03:20 INR 1.65 (0.83-1.16) H 01/08/19 03:20 Physical Exam - Physical Exam General Appearance: mild distress, cachetic EENT: No scleral icterus (R), No scleral icterus (L) Neck: normal inspection Respiratory: No respiratory distress Cardiac/Chest: irregularly irregular Abdomen: non-tender, soft, No distended Skin: normal color, warm/dry Extremities: No pedal edema Neuro/Psych: no motor/sensory deficits, alert, normal mood/affect, oriented x 3 ICD10 Worksheet Patient Problems: Problems Problem Status Onset Congestive heart failure Acute S/P AVR Acute S/P MVR (mitral valve replacement) Acute S/P atrial septal defect closure Acute S/P left atrial appendage ligation Acute S/P tricuspid valve repair Acute Chronic Disease Mgmt/Transitional Care Acute
[2019-01-08] MEDS: TAMSULOSIN HCL 0.4 MG CAP PO SCH (10:53)
[2019-01-08] MEDS: ASPIRIN 81 MG CHEWABLE TAB PO SCH (10:53)
[2019-01-08] MEDS: PSYLLIUM PO SCH (10:53)
[2019-01-08] MEDS: PANTOPRAZOLE SODIUM 40 MG TAB PO SCH (10:53)
[2019-01-08] MEDS: ONDANSETRON 4 MG/2 ML VIAL IVP SCH ×3 (12:39→21:37)
--- NOTE | 2019-01-08 13:01 | GCON ---
[f rep st] CONSULTATION DATE OF CONSULTATION: 01/08/2019 REFERRING PHYSICIAN: Dr. Coronel CHIEF COMPLAINT: Nausea. HISTORY OF PRESENT ILLNESS: Dr. Coronel, thank you very kindly for asking me to evaluate the patient i n consultation for a chief complaint of nausea. He is an 83-year-old gentleman with a known history of congestive heart failure, who underwent a mitral valve clipping procedure in April of 2018, followe d by a TAVR procedure in June. He was admitted for worsening shortness of breath and cough. He sue s now undergone an explant of the mitral valve clips with mitral valve repair. He has also had an ao rtic valve replacement and a closure of an ASD and a ligation of the left atrial appendage. It seems from review of the notes that he is postop day 6 from his repeat cardiothoracic intervention, and si nce then, has just been feeling quite nauseous. He describes it just as really a poor appetite. He has been receiving Zofran and has a scopolamine patch that has been placed for therapy but does not r eally feel much improved. He has also been receiving pantoprazole. He denies any abdominal pain. Rudy nicholson does report difficulty with his swallow and interestingly has a history of a Zenker diverticulum th at was treated with both laser ablation and then ultimately surgery that has been remote. He feels s ometimes that pills or food can get stuck in the neck, but he more describes difficulties that when rudy nicholson swallows, it can sometimes regurgitate. He is able to tolerate milk shakes and Ensure, soups and b patterson and liquids quite well, however. He is just not really eating enough because of his lack of linh etite and this description of nausea. He denies any diarrhea, melena, hematochezia, and has been liv ing occasional bisacodyl and is on lactulose 3 times a day if needed for constipation. I am asked to assist with further evaluation and management of these symptoms. PAST MEDICAL HISTORY: Significant for congestive heart failure, history of mitral valve clipping per formed at [facility] in [place] to treat severe mitral regurgitation. He has had a TAVR proced ure in June of 2018. He is also now undergone an over-sewing of a left atrial appendage, mitral va lve repair, and an aortic valve replacement. He has a history of sleep apnea, hypertension, gout, Ze nker diverticulum. He has had a prior knee surgery and appendectomy. CURRENT MEDICATIONS: Include Tylenol, aspirin, calcium, vitamin D, Klonopin, lactulose, magnesium ox mike, melatonin, Reglan as needed, multivitamin, Zofran, Protonix, artificial biotin, saliva substitut e, scopolamine patch, Flomax, tramadol, Coumadin. ALLERGIES: Erythromycin. SOCIAL HISTORY: The patient is . No tobacco, rare alcohol. 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 FAMILY HISTORY: Negative for peptic ulcer disease, esophageal or gastric cancer. No history in the family of colon cancer. REVIEW OF SYSTEMS: CONSTITUTIONAL: He reports some malaise. He has a poor appetite. He has had we ight loss since this hospitalization and surgical intervention. Denies any fever, chills, or night s weats. HEENT: Denies headache or visual disturbances. No tinnitus. No dizziness. No epistaxis or rhinorrhea. He denies any facial or dental pain. He says he has a dry mouth. He has had difficult y initiating the swallow with the feeling that things might be hanging up in the neck, predominantly pills. PULMONARY: He denies any shortness of breath. He does report having sleep apnea. CARDIOVASC ULAR: He denies any chest pain currently. GI: Negative other than the HPI. RHEUMATOLOGIC: Denies joint pain or swelling. No back pain. GENITOURINARY: No dysuria or hematuria. DERMATOLOGIC: No hi ves, jaundice, or pruritus. NEUROLOGIC: Denies paresthesias. He reports feeling generally weak. P SYCHIATRIC: Has some insomnia. PHYSICAL EXAM: VITAL SIGNS: Blood pressure is 160/72, heart rate is 82, temperature is 36.3. GENER AL: Elderly male, in no acute distress, seems fatigued. NECK: Supple. No jugular venous distentio n. There is a radiating murmur into the neck. No thyromegaly. HEENT: Oropharynx is dry. He has a bit of a tongue tremor. There is no oral thrush. The neck is symmetric without adenopathy or thyro megaly. The trachea is midline. LUNGS: Breath sounds are a little bit rhonchorous. There are some scant rales in the base. He is a bit tachypneic. Air exchange is reasonable. CHEST: He has a mid line sternotomy incision that seems relatively well healed. There is no crepitus or fluctuation arou nd the incision. It is a little bit erythematous. Mildly tender to palpation of the sternum. CARDI OVASCULAR: The rhythm is irregular. There are aortic and mitral valve mechanical prosthetic sounds in the exam. There is a holosystolic murmur. GI: The abdomen is nondistended and soft. Bowel soun ds are present. There is no rebound, guarding, tenderness, or palpable mass. EXTREMITIES: There ar e some venous stasis changes in the hands. Capillary refill is a little bit delayed. There is no si gnificant edema. NEURO: The patient is alert and oriented. He is able to provide his own history. His speech is normal. He moves all his extremities normally. DATABASE: Includes the following: White blood count is 11.8, hematocrit is 30.4, platelets are 100. INR is 1.65. Total bilirubin is 0.9 with an alkaline phosphatase of 52, AST 25, ALT 35. Lipase is 96 with an amylase of 151. IMAGING: Includes a chest x-ray from 01/07/2019. This reveals postsurgical changes of open heart villanueva rgery and valvular replacement. The heart is stable in size. The pulmonary vasculature is normal. There are calcifications in the aorta. There are small apical pneumothoraces bilaterally which are u nchanged from a previous x-ray on December 30. Small pleural effusions. IMPRESSION: 1. Nausea. 2. What seems like oropharyngeal dysphagia to me. 3. A history of Zenker diverticulum with dysphagia. 4. Anorexia. 5. Weight loss. 6. Congestive heart failure and known valvular heart disease with fairly significant surgical interv ention for repair. RECOMMENDATIONS: 1. The cause of nausea is unknown. I do not believe this to be a primary gastrointestinal etiology, though. It is much more likely due to his recent surgical intervention and perhaps some ongoing allyssa ments of congestive heart failure and new onset AFib after the procedure, but this is not known. I d o not get the sense that it is reflux or peptic ulcer disease related. There is no evidence of ileus or obstruction, and I do not think it is related to GI infection like C difficile colitis or obstipa tion. 2. In regard to his oropharyngeal and possibly a component of esophageal dysphagia, this seems mild and mostly pill related. There is an element of regurgitation, and he is having trouble swallowing, but he is able to get milk shakes and smoothies and purees and liquids down quite well, and while he is not taking enough caloric intake, I think mostly because of his lack of appetite and generalized w eakness and nausea and global illness, I think he should be able to improve this without the need for further supplemental feeding such as through a Dobhoff tube or TPN. 3. If he is unable to maintain his caloric intake and continues to have problems swallowing, then an endoscopy can be considered. This would mostly be to rule out things such as candidiasis, esophagit is, reflux esophagitis, postoperative injuries from things such as the transesophageal echo that was performed during his surgery. 4. His lipase is elevated, but in the absence of abdominal pain, I am not sure I know the reason for this. His LFTs are normal which would go against anything being obstructive like gallstone related. This may be traumatic with some pressure injury on the pancreas from his recent open heart surgery but this is somewhat hard to know. For now, I would continue his nutrition without change and just m onitor the lipase intermittently to see. If this continues to be significantly elevated, then imagin g of the pancreas will be needed best with an MRI/MRCP to better evaluate glandular anatomy and exclu de ductal obstructing problems causing this and seeing if this may be a cause of nausea. 5. Continue Zofran scheduled before meals and a scopolamine patch for treatment of his nausea. 6. Continue proton pump inhibitor therapy for GI prophylaxis. If there is an element of esophageal reflux or gastritis or peptic ulcer disease, this is being treated with this medication. 7. Nutrition consultation to continue to evaluate his caloric intake and help provide dietary choice s that can be supportive. Thank you for allowing me to be involved in the care for the patient. I will continue to follow deanna e he is here and help decide about the timing and appropriateness of endoscopic intervention for thes e symptoms if he continues to do poorly. We will also decide about further imaging of the pancreas d epending on the progression of his lipase. The family is comfortable with the conservative care plan at this time and we will make changes to this depending on his progress. /[id number]/MODL
[2019-01-08] MEDS ORDERED: WARFARIN SODIUM 2.5 MG TAB PO ONE (16:00)
[2019-01-08] MEDS: clonazePAM 0.5 MG TAB PO SCH (21:37)
[2019-01-08] MEDS: MELATONIN 3 MG TAB PO SCH (21:37)
[2019-01-08] MEDS: CALCIUM CARBONATE 500 MG TAB PO SCH (21:38)
[2019-01-08] MEDS: SENNOSIDES/DOCUSATE SODIUM TAB PO PRN (21:43)
[2019-01-09 05:34] LABS: INR 1.78 (0.83-1.16); PROTIME(PATIENT) 20.8 SEC (12.0-15.0)
--- NOTE | 2019-01-09 07:18 | SOAPPROG ---
JASPER Progress Note Assessment/Plan: POD #8: s/p explant of #29 Medtronic Evolut Pro TAVR, AVR with #23 Magna bioprosthesis, Explant of Mitral Clips x2, MVR with #29 Magna bioprosthesis, TVA with #28 MC3, closure ASD, ligation AUTUMN Severe MR with h/o mitral clips s/p explant with MVR - Thromboprophylaxis with Coumadin, INR goal 2-3, duration at least 8 weeks, longer pending rhythm stability - Lifelong adjunctive ASA - Post-op routine ECHO without issues Moderate AI with h/o TAVR s/p explant of with AVR - Plan as per MVR Moderate TR s/p TVA - Plan as per MVR Closure of ASD - Stable Post-op nausea with pancreatitis - Lipase trending higher although abdominal exam continue to be benign - LFTs normal so doubt obstructive etiology - Pt able to drink shakes without problems and states appetite is gaining although he still remains nauseas without vomiting - GI evaluated pt - plan is to follow Lipase, medicate with Zofran prior to meals, calorie count - will await further recs Post-operative coagulopathy with acute blood loss anemia - Stable s/p multiple transfusions Post-operative atrial fibrillation/flutter - Rates 50-70 with adequate BP - Thromboprophylaxis as per MVR, duration pending stability of rhythm - PPM not needed - Beta-karen avoided d/t bradycardia CKD, stage 3 - Cr stabilized - Avoid nephrotoxins Acute on chronic class 4 diastolic CHF - Currently medically optimized, continue Lasix PRN - Further medical mgmt (TAMANNA/ARB) if/when appropriate - BB avoided d/t rhythm issues DVT prophylaxis - SCDs Disposition - SNF once medically stable Subjective: +nausea/-emesis, taking shakes/drinks without problems, denies abd pain Objective: Vital Signs Temp Pulse Resp BP Pulse Ox 37.0 C 87 16 128/78 H 92 01/09/19 04:00 01/09/19 04:00 01/09/19 04:00 01/09/19 04:00 01/09/19 04:00 Laboratory Results 01/09/19 04:40 01/09/19 04:40 01/08/19 01/09/19 01/10/19 05:59 05:59 05:59 Intake Total 1580 900 Output Total 1600 1025 Balance -20 -125 PT 20.8 SEC (12.0-15.0) H 01/09/19 04:40 INR 1.78 (0.83-1.16) H 01/09/19 04:40 Physical Exam - Physical Exam General Appearance: alert, no apparent distress, cachetic EENT: No scleral icterus (R), No scleral icterus (L) Neck: normal inspection Respiratory: No respiratory distress Cardiac/Chest: irregularly irregular Abdomen: non-tender, soft, No distended, No guarding, No rigid Skin: normal color, warm/dry Extremities: No pedal edema Neuro/Psych: no motor/sensory deficits, alert, normal mood/affect, oriented x 3 ICD10 Worksheet Patient Problems: Problems Problem Status Onset Congestive heart failure Acute S/P AVR Acute S/P MVR (mitral valve replacement) Acute S/P atrial septal defect closure Acute S/P left atrial appendage ligation Acute S/P tricuspid valve repair Acute Chronic Disease Mgmt/Transitional Care Acute
[2019-01-09] MEDS: ONDANSETRON 4 MG/2 ML VIAL IVP SCH ×4 (08:07→21:07)
[2019-01-09] MEDS: TAMSULOSIN HCL 0.4 MG CAP PO SCH (09:55)
[2019-01-09] MEDS: PANTOPRAZOLE SODIUM 40 MG TAB PO SCH (09:55)
[2019-01-09] MEDS: ASPIRIN 81 MG CHEWABLE TAB PO SCH (09:55)
[2019-01-09] MEDS: PSYLLIUM PO SCH (09:56)
--- NOTE | 2019-01-09 12:54 | SOAPPROG ---
SOAP Progress Note Assessment/Plan: Assessment: 1. Nausea 2. Dysphagia 3. Elevated amylase and lipase 4. Valvular heart disease 5. CHF 6. Malnutrition Plan: 1. Without abdominal pain he does not meet clinical criteria for acute pancreatitis but rather hyperlipasemia. I am unclear as to wether his nausea is a feature of pancreatic inflammation however (aytpical manifestation of pancreatitis)? 2. With normal LFTS doubt obstructive biliary etiology to the lipasemia, but I would recommend a CT abdomen and pelvis with IV contrast if his lipase continues to remain elevated without improvement in his nausea 3. He has a CT angiography in March 2017 which showed a normal pancreas and normal vascular anatomy to the bowel overall (etiology of elevated lipase can be ischemic, like from CHF). 4. No real offending medications for pancreatitis currently 5. PUD can also cause pancreatic inflammation and nausea. Will increase his PPI and change to IV dosing for now 6. Continue nutritional support. 7. CT imaging can also show features of PUD at times and evaluate his pancreas so may proceed with this tomorrow. 8. May also benefit from EGD but I would like to give him more post-op recovery before subjecting him to further anesthesia at this time 01/09/19 12:50 01/09/19 12:54 Subjective: CC: fatigued. Some mild nausea. Poor appetite Overall a bit better. Tolerating pureed diet well. Denies abdominal pain Objective: Vital Signs Temp Pulse Resp BP Pulse Ox 36.7 C 70 18 113/78 96 01/09/19 11:50 01/09/19 11:50 01/09/19 11:50 01/09/19 11:50 01/09/19 11:50 Laboratory Results 01/09/19 04:40 01/09/19 04:40 01/08/19 01/09/19 01/10/19 05:59 05:59 05:59 Intake Total 1580 900 400 Output Total 1600 1025 150 Balance -20 -125 250 PT 20.8 SEC (12.0-15.0) H 01/09/19 04:40 INR 1.78 (0.83-1.16) H 01/09/19 04:40 Physical Exam - Physical Exam General Appearance: no apparent distress, thin Neck: supple Respiratory: lungs clear Cardiac/Chest: systolic murmur, irregularly irregular Abdomen: non-tender, soft, No distended, No guarding, No rebound, No ascites ICD10 Worksheet Patient Problems: Problems Problem Status Onset Congestive heart failure Acute S/P AVR Acute S/P MVR (mitral valve replacement) Acute S/P atrial septal defect closure Acute S/P left atrial appendage ligation Acute S/P tricuspid valve repair Acute Chronic Disease Mgmt/Transitional Care Acute
--- NOTE | 2019-01-09 15:53 | ASMTCMCOM ---
CM Note CM Note Notes: Discussed pt with RN and spoke with pt in the room. Pt's DC date still TBD when medically stable. Confirmed with pt that [facility] is still the plan. Updates sent to [facility]. CM to follow. D/C Plan: [facility] Date Signed: 01/09/2019 03:52 PM Electronically Signed By:Coreen Ellis
[2019-01-09] MEDS: SENNOSIDES/DOCUSATE SODIUM TAB PO PRN (15:56)
[2019-01-09] MEDS ORDERED: WARFARIN SODIUM 2.5 MG TAB PO ONE (16:00)
[2019-01-09] MEDS: SCOPOLAMINE HYDROBROMIDE 1 MG/3 DAYS PATCH TD SCH (16:05)
[2019-01-09] MEDS: PANTOPRAZOLE SODIUM 40 MG VIAL IVP SCH (21:09)
[2019-01-09] MEDS: MELATONIN 3 MG TAB PO SCH (21:09)
[2019-01-09] MEDS: clonazePAM 0.5 MG TAB PO SCH (21:10)
[2019-01-09] MEDS: CALCIUM CARBONATE 500 MG TAB PO SCH (21:10)
[2019-01-10 05:05] LABS: INR 2.05 (0.83-1.16); PROTIME(PATIENT) 23.2 SEC (12.0-15.0)
--- NOTE | 2019-01-10 07:20 | SOAPPROG ---
JASPER Progress Note Assessment/Plan: POD #9: s/p explant of #29 Medtronic Evolut Pro TAVR, AVR with #23 Magna bioprosthesis, Explant of Mitral Clips x2, MVR with #29 Magna bioprosthesis, TVA with #28 MC3, closure ASD, ligation AUTUMN Severe MR with h/o mitral clips s/p explant with MVR - Thromboprophylaxis with Coumadin, INR goal 2-3, duration at least 8 weeks, longer pending rhythm stability - Lifelong adjunctive ASA - Post-op routine ECHO without issues Moderate AI with h/o TAVR s/p explant of with AVR - Plan as per MVR Moderate TR s/p TVA - Plan as per MVR Closure of ASD - Stable Post-op nausea with pancreatitis - Lipase lower this AM but pt c/o persistent nausea and new abdominal pain with bloating - Will make NPO, obtain abdominal x-rays, and start IV fluids - GI following pt and will wait for further recs Post-operative coagulopathy with acute blood loss anemia - Stable s/p multiple transfusions Post-operative atrial fibrillation/flutter - Rates 50-70 with adequate BP - Thromboprophylaxis as per MVR, duration pending stability of rhythm - PPM not needed - Beta-karen avoided d/t bradycardia CKD, stage 3 - Cr stabilized - Avoid nephrotoxins 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 Denies pain/SOB. Objective: Vital Signs Temp Pulse Resp BP Pulse Ox 36.7 C 74 16 119/84 H 92 01/10/19 04:00 01/10/19 04:00 01/10/19 04:00 01/10/19 04:00 01/10/19 04:00 Laboratory Results 01/09/19 04:40 01/09/19 04:40 01/09/19 01/10/19 01/11/19 05:59 05:59 05:59 Intake Total 900 850 Output Total 1025 625 75 Balance -125 225 -75 PT 23.2 SEC (12.0-15.0) H 01/10/19 03:20 INR 2.05 (0.83-1.16) H 01/10/19 03:20 Physical Exam - Physical Exam General Appearance: mild distress, cachetic EENT: No scleral icterus (R), No scleral icterus (L) Neck: normal inspection Respiratory: No respiratory distress Cardiac/Chest: irregularly irregular Abdomen: soft, distended, other (mild diffuse tenderness), No rigid Skin: normal color, warm/dry Extremities: No pedal edema Neuro/Psych: no motor/sensory deficits, alert, normal mood/affect, oriented x 3 ICD10 Worksheet Patient Problems: Problems Problem Status Onset Congestive heart failure Acute S/P AVR Acute S/P MVR (mitral valve replacement) Acute S/P atrial septal defect closure Acute S/P left atrial appendage ligation Acute S/P tricuspid valve repair Acute Chronic Disease Mgmt/Transitional Care Acute
[2019-01-10] MEDS: PANTOPRAZOLE SODIUM 40 MG VIAL IVP SCH ×2 (08:09→21:02)
[2019-01-10] MEDS: ONDANSETRON 4 MG/2 ML VIAL IVP SCH ×4 (08:13→21:07)
[2019-01-10] MEDS: TAMSULOSIN HCL 0.4 MG CAP PO SCH (08:15)
[2019-01-10] MEDS: ASPIRIN 81 MG CHEWABLE TAB PO SCH (08:15)
[2019-01-10] MEDS: PSYLLIUM PO SCH (08:25)
[2019-01-10] MEDS ORDERED: BISACODYL 10 MG SUPP PR ONE (09:10)
[2019-01-10] MEDS ORDERED: D5W 1/2 NS W/ 20 KCl/L 1,000 ML IV SCH (09:15)
--- NOTE | 2019-01-10 11:49 | SOAPPROG ---
SOAP Progress Note Assessment/Plan: Assessment: 1. Nausea 2. Brea-umbilical pain 3. Elevated lipase 4. Constipation 5. CHF with valvular heart disease Plan: 1. Bladder scan to exclude urinary retention 2. Clear liquid diet ok 3. D/C lactulose 4. Miralax 17gm BID 5. CT abdomen/pelvis with IV contrast to evaluate his abdominal pain and elevated lipase 6. 2 way of abdomen suggests constipation without ileus or obstruction 7. dulcolax supp 10mg CA once 8. Repeat LFTs and lipase in AM 9. Continue IV PPI Rx 01/10/19 11:46 Subjective: CC: Nausea Brea-umbilical abdominal pain started at 9AM. Mild and dull ache. Ongoing nausea without emesis Abdominal xray with constipation. No obstruction. Last BM was 01/07 Objective: Vital Signs Temp Pulse Resp BP Pulse Ox 36.7 C 85 18 130/89 H 94 01/10/19 07:32 01/10/19 07:32 01/10/19 07:32 01/10/19 07:32 01/10/19 07:32 Laboratory Results 01/09/19 04:40 01/09/19 04:40 01/09/19 01/10/19 01/11/19 05:59 05:59 05:59 Intake Total 900 850 Output Total 1025 625 75 Balance -125 225 -75 PT 23.2 SEC (12.0-15.0) H 01/10/19 03:20 INR 2.05 (0.83-1.16) H 01/10/19 03:20 Physical Exam - Physical Exam General Appearance: no apparent distress EENT: normal ENT inspection Neck: supple Respiratory: lungs clear Cardiac/Chest: systolic murmur Abdomen: non-tender, soft, No pulsatile mass, No distended, No guarding, No rebound, No ascites ICD10 Worksheet Patient Problems: Problems Problem Status Onset Congestive heart failure Acute S/P AVR Acute S/P MVR (mitral valve replacement) Acute S/P atrial septal defect closure Acute S/P left atrial appendage ligation Acute S/P tricuspid valve repair Acute Chronic Disease Mgmt/Transitional Care Acute
[2019-01-10] MEDS ORDERED: IOHEXOL 300 mgI/ML (OMNIPAQUE) 150 ML BTL IV ONE (14:02)
[2019-01-10] MEDS ORDERED: WARFARIN SODIUM 2.5 MG TAB PO ONE (16:00)
[2019-01-10] MEDS: clonazePAM 0.5 MG TAB PO SCH (21:05)
[2019-01-10] MEDS: MELATONIN 3 MG TAB PO SCH (21:06)
[2019-01-11] MEDS: POLYETHYLENE GLYCOL 3350 17 GM PKT PO SCH ×2 (02:49→08:10)
[2019-01-11 04:45] LABS: INR 2.13 (0.83-1.16); PROTIME(PATIENT) 23.9 SEC (12.0-15.0)
--- NOTE | 2019-01-11 07:07 | SOAPPROG ---
JASPER Progress Note Assessment/Plan: POD #10: s/p explant of #29 Medtronic Evolut Pro TAVR, AVR with #23 Magna bioprosthesis, Explant of Mitral Clips x2, MVR with #29 Magna bioprosthesis, TVA with #28 MC3, closure ASD, ligation AUTUMN Severe MR with h/o mitral clips s/p explant with MVR - Thromboprophylaxis with Coumadin, INR goal 2-3, duration at least 8 weeks, longer pending rhythm stability - Lifelong adjunctive ASA - Post-op routine ECHO without issues Moderate AI with h/o TAVR s/p explant of with AVR - Plan as per MVR Moderate TR s/p TVA - Plan as per MVR Closure of ASD - Stable Post-op nausea with elevated amylase/lipase - Pt still c/o nausea - Abdominal distension resolved after BM - CTAP w/o contrast showed no acute pathology - GI following Post-operative hypovolemic shock d/t severe coagulopathy and acute blood loss anemia - Stable s/p multiple transfusions Post-operative atrial fibrillation/flutter - Rates 50-70 with adequate BP - Thromboprophylaxis as per MVR, duration pending stability of rhythm - PPM not needed - Beta-karen avoided d/t bradycardia CKD, stage 3 - Cr stabilized - Avoid nephrotoxins 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 Denies vomting/SOB. Abdominal distension/pain resolved after BM. Objective: Vital Signs Temp Pulse Resp BP Pulse Ox 36.7 C 76 20 134/80 H 94 01/11/19 04:00 01/11/19 04:00 01/11/19 04:00 01/11/19 04:00 01/11/19 04:00 Laboratory Results 01/11/19 03:24 01/11/19 03:24 01/10/19 01/11/19 01/12/19 05:59 05:59 05:59 Intake Total 850 463 Output Total 625 995 Balance 225 -532 PT 23.9 SEC (12.0-15.0) H 01/11/19 03:24 INR 2.13 (0.83-1.16) H 01/11/19 03:24 Physical Exam - Physical Exam General Appearance: no apparent distress, cachetic EENT: No scleral icterus (R), No scleral icterus (L) Neck: normal inspection Respiratory: No respiratory distress Cardiac/Chest: regular rate, rhythm, extra beats, irregularly irregular Abdomen: non-tender, soft, No distended Skin: normal color, warm/dry Extremities: No pedal edema Neuro/Psych: no motor/sensory deficits, alert, normal mood/affect, oriented x 3 ICD10 Worksheet Patient Problems: Problems Problem Status Onset Congestive heart failure Acute S/P AVR Acute S/P MVR (mitral valve replacement) Acute S/P atrial septal defect closure Acute S/P left atrial appendage ligation Acute S/P tricuspid valve repair Acute Chronic Disease Mgmt/Transitional Care Acute
[2019-01-11] MEDS: TAMSULOSIN HCL 0.4 MG CAP PO SCH (07:50)
[2019-01-11] MEDS: ASPIRIN 81 MG CHEWABLE TAB PO SCH (07:51)
[2019-01-11] MEDS: PSYLLIUM PO SCH (07:51)
[2019-01-11] MEDS: PANTOPRAZOLE SODIUM 40 MG VIAL IVP SCH (07:54)
[2019-01-11] MEDS: ONDANSETRON 4 MG/2 ML VIAL IVP SCH (08:02)
--- NOTE | 2019-01-11 09:30 | PDIAF ---
- Diagnosis Diagnosis: AVR, MVR, TVA Code Status: Full Code - Medication Management Discharge Medications: electronically signed and located in the Home Medication List. PICC Care - Routine: N/A - Orders Services needed: Registered Nurse, Certified Hospital Insurance Representative, Master Benefits Consultant , Physical Therapy, Occupational Therapy Isolation Type: None Diet Recommendation: no restrictions on diet, fluid restriction (use comment for amount) (2 liters per day) Diet Texture: Regular Texture Diet, Thin Liquids, Meds Whole w/Liquids Weigh Patient: daily Davidson: No Additional Instructions: Discharge Instructions: Call [facility] cardiac rehab to enroll in phase 2 classes if not already arranged. Sternal precautions x 4 weeks. Avoid lifting > 10lbs with an outstretched arm. Avoid push/pull activities. No driving until cleared by surgery. Elevate low legs at rest. Avoid prolonged standing or dangling. Cleanse wounds once daily with soap and water. Avoid immersion (pool, hot tub, bath) until fully healed. Leave all wounds open to air. Avoid creams or ointments until fully healed. Log daily vital signs once home: weight, heart rate, blood pressure, and pulse oximetry if on oxygen. Call [facility] for weight gain > 5lbs or worsening leg swelling. Call [facility] for resting heart rate > 120 OR < 50. Call [facility] for systolic blood pressure consistently < 90 or > 160. Ok to use appropriate [id number] medications for bowel function or pain. Chest x-ray Instructions: Please obtain a chest xray prior to surgical appointment. Chest x-rays dont require an appointment. Come to the Emergency Room entrance at the [facility] location. Sign in at the computer kiosk in the entryway. You will be given a number and may sit in the waiting area until called. You will be registered and directed to the Imaging desk on the 1st floor. This process can take up to an hour. Make sure you allow enough time before your appointment to have your x-ray taken. - Labs/Radiology Imaging Orders: CXR at [facility] day of f/u appointment - Follow Up Care Current Providers and Referrals: Devin Nair MD [Medical Doctor] - follow up as scheduled Mateus Donaldson DO [Primary Care Provider] - As per Instructions Mateus Ly MD [Medical Doctor] - 01/23/19 10:15 am
--- NOTE | 2019-01-11 09:30 | SOAPPROG ---
SOAP Progress Note Assessment/Plan: Assessment: 1. Nausea 2. Brea-umbilical pain 3. Elevated lipase 4. Constipation 5. CHF with valvular heart disease Plan: 1. BM yesterday. Overall feels better 2. Nausea persists but mild 3. Tolerating po 4. Lipase better and CT without features of pancreatitis or disease. Cause of elevation in lipase may be due to mild, non-radiographic evident pancreatitis which can occur. LFTs normal and no evidence of biliary or pancreatic obstruction. 5. Ok for d/c to SNIF in my opinion 6. Soft mechanical diet 7. BID PPI for 4 wks then once daily 8. Outpatient GI f/u in 4-6 wks. 01/11/19 09:27 Subjective: CC: Less abdominal pain. Good BM yesterday. Tolerating po. Objective: Vital Signs Temp Pulse Resp BP Pulse Ox 36.6 C 83 18 130/92 H 94 01/11/19 07:45 01/11/19 07:45 01/11/19 07:45 01/11/19 07:45 01/11/19 07:45 Laboratory Results 01/11/19 03:24 01/11/19 03:24 01/10/19 01/11/19 01/12/19 05:59 05:59 05:59 Intake Total 850 463 Output Total 625 1245 Balance 225 -782 PT 23.9 SEC (12.0-15.0) H 01/11/19 03:24 INR 2.13 (0.83-1.16) H 01/11/19 03:24 Physical Exam - Physical Exam General Appearance: no apparent distress Neck: supple Respiratory: rhonchi Cardiac/Chest: systolic murmur, extra beats, irregularly irregular, other ( Valvular clicks present) Abdomen: normal bowel sounds, non-tender, soft, No distended, No guarding, No rebound ICD10 Worksheet Patient Problems: Problems Problem Status Onset Congestive heart failure Acute S/P AVR Acute S/P MVR (mitral valve replacement) Acute S/P atrial septal defect closure Acute S/P left atrial appendage ligation Acute S/P tricuspid valve repair Acute Chronic Disease Mgmt/Transitional Care Acute
--- NOTE | 2019-01-11 09:31 | PDDCSUM ---
Discharge Summary Discharge Summary: ADMISSION DATE: 12/27/18 DISCHARGE DATE: 01/11/19 ADMISSION DIAGNOSES 1. Severe MR with h/o mitral clips x2 2. Moderate AI with h/o TAVR 3. Moderate TR 4. ASD 5. CKD, stage 3 6. Acute on chronic class 4 diastolic CHF DISCHARGE DIAGNOSES 1. As above 2. Post-op hypovolemic shock d/t severe coagulopathy and acute blood loss anemia 3. Post-op atrial fib/flutter 4. Nausea 5. Elevated lipase/amylase PROCEDURES 01/01/19 ([facility]): explant of #29 Medtronic Evolut Pro TAVR, AVR with #23 Magna bioprosthesis, Explant of Mitral Clips x2, MVR with #29 Magna bioprosthesis, TVA with #28 MC3, closure ASD, ligation AUTUMN HPI 83M with multivalvular cardiomyopathy admitted with acute on chronic class 4 diastolic CHF. HOSPITAL COURSE BY PROBLEM LIST 1. Severe MR with h/o mitral clips x2 - s/p explant of mitral Clips x2, MVR with #29 Magna bioprosthesis. Thromboprophylaxis with Coumadin, INR goal 2-3, duration at least 8 weeks, longer pending rhythm stability. 2. Moderate AI with h/o TAVR - s/p explant of #29 Medtronic Evolut Pro TAVR, AVR with #23 Magna bioprosthesis. Mgmt as per AVR. 3. Moderate TR - s/p TVA. Mgmt as per AVR. 4. ASD - s/p closure. Stable. 5. CKD, stage 3 - Cr normal on discharge. Continue supportive care. 6. Acute on chronic class 4 diastolic CHF - medically optimized, continue Lasix PRN. Further medical mgmt (TAMANNA/ARB) if/when appropriate. Beta-karen avoided d/ t rhythm issues. 7. Post-op hypovolemic shock d/t severe coagulopathy and acute blood loss anemia - stable s/p multiple transfusions. 8. Post-op atrial fib/flutter - rates 50-70 with adequate BP. Thromboprophylaxis as per MVR, duration pending stability of rhythm. PPM not indicated. Beta-karen avoided d/t bradycardia. 9. Nausea with elevated lipase/amylase - persistent nausea post-operatively without emesis. Lipase and amylase trending lower on discharge. GI following with plan for outpatient f/u. Abdominal exam benign. CTAP benign. Continue supportive care. CONDITION Fair DISPOSITION SNF, [facility] PERTINENT DISCHARGE CLINICAL INFORMATION Vitals: 130/92, 83 AF, 94% on RA, +1 kg Exam: NAD, AF, No resp distress, ND, soft, NTP, BLE without edema ACTIVITY Pt was instructed on sternal precautions, activity limitations, and which problems to call [facility] with. Please see Discharge Plan in chart for specifics. DISCHARGE MEDICATIONS As per Home Medication List PENDING STUDIES/LABS 1. CXR prior to surgical follow-up 2. INR management at SNF (goal 2-3), duration to be determined FOLLOW-UP 1. Mateus Ly (CT Surgery), 01/23/19, 10:10 AM 2. Devin Nair (GI), to be determined
--- NOTE | 2019-01-11 10:09 | ASMTLACE ---
LACE Length of stay for Answers: 14 days or more current admission Acuity / Level of Answers: Yes Care: Did the patient have an inpatient admission? Comorbidities - select Answers: Congestive heart failure all that apply Other Notes: Diverticulosis; Asthma # of Emergency department Answers: 1-2 visits in the last 6 months Score: 14 Date Signed: 01/11/2019 10:08 AM Electronically Signed By:Mabel Luevano RN
--- NOTE | 2019-01-11 11:02 | ASMTDCNOTE ---
Case Management Discharge Discharge Order Complete? Answers: Yes Patient to Obtain Answers: Other Notes: [facility] Transportation Arranged Answers: Other Notes: w/c transport arranged by [facility]. Transport will Pick (Date 01/11/2019 02:00 PM & Time) Faxed Final Orders Answers: Yes Notes: to [facility] Agency/Facility Transfer Answers: Yes Notes: to [facility] Report Printed & Faxed to Receiving Agency Discharge Comments Notes: 01/11/2019 Case Management Note Faxed d/c orders to [facility]. RN to call report. Brinda arranged w/c transport. 1400 picker operator. Notified RN. Case Management d/c poc: [facility] rehab. Date Signed: 01/11/2019 11:01 AM Electronically Signed By:Mabel Luevano RN
--- NOTE | 2019-01-11 11:02 | ASDISCHSUM ---
Discharge Information Plan Status:SNF Medically Cleared to Leave:01/10/2019 Discharge Date:01/10/2019 CM D/C Disposition:[facility] Facility ADT D/C Disposition:[facility] Facility Projected Discharge Date:01/08/2019 11:00 AM Transportation at D/C:[facility] Discharge Delay Reason: Follow-Up Date:01/08/2019 11:00 AM Discharge Slot: Final Diagnosis: Placement Information Referral Type:*Skilled Nursing/SNF Referral ID:[id number] Provider Name:Tanya Eid Address 1:[address] Phone Number: Address 2: Fax Number: [facility]:[place] Selection Factors: State:[place] Patient Contact Information Contact Name:CECILIA Relationship: Address:[address] City:[place] Alternate Phone: State/Zip Code:[place] [address] Email: Financial Information Financial Class:Medicare Primary Plan Desc:MEDICARE INPATIENT Primary Plan Number:[id number] Secondary Plan Desc:AARP/MDR SUPPLEMENT Secondary Plan Number:[id number] Assessment Information LACE LACE Length of stay for Answers: 14 days or more current admission Acuity / Level of Answers: Yes Care: Did the patient have an inpatient admission? Comorbidities - select Answers: Congestive heart failure all that apply Other Notes: Diverticulosis; Asthma # of Emergency department Answers: 1-2 visits in the last 6 months Score: 14 Date Signed: 01/11/2019 10:08 AM Electronically Signed By:Mabel Luevano RN [facility] CM Progress Note CM Note CM Note Notes: Pts case discussed in tx rounds. Pt is a robust 83 y/o man admitted for dyspnea and CHF. 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 Cards is following this case as well as transitional care. Pt w/ a hx of TAVR. Pt is currently diuresing. Pt should not have any d/c needs. No therapies ordered at this time. CM available for changes. Plan: Independent Date Signed: 12/27/2018 12:09 PM Electronically Signed By:CAPO Ring [facility] Progress Note CM Note CM Note Notes: 12/29/2018 Case Management Note Discussed pt during rounds this morning. Surgery is possible early next week. D/C not anticipated until early to mid week next week. There are no therapies ordered at this time. Transitional Care to follow. Case Management d/c poc: to be determined. Case Management to follow. Date Signed: 12/29/2018 05:02 PM Electronically Signed By:Mabel Luevano RN [facility] Progress Note CM Note CM Note Notes: Pt has been transferred to ICU. Pt is not doing well post valve replacement. Pt coded almost twice. Therapies are both recommending inpatient rehab. CM discussed w/ Oscar. Oscar will talk over bhavik/ Homer to see if pt would be appropriate for inpatient rehab level of care. CM to follow. Plan: Possible inpatient rehab Date Signed: 01/02/2019 02:33 PM Electronically Signed By:CAPO Ring [facility] CM Progress Note CM Note CM Note Notes: 01/04/2019 Case Management Note Met w/pt and family members to discuss d/c needs. Provided SNF rehab list. Faxed referrals to [facility], [facility], [facility], [facility] and [facility]. Anticipating d/c early to mid next week. Case Management d/c poc: SNF rehab pending acceptance. Case Management to follow. Date Signed: 01/04/2019 12:17 PM Electronically Signed By:Mabel Luevano RN [facility] CM Progress Note CM Note CM Note Notes: 01/06/2019 Case Management Note Met w/ pt and son. Family has toured [facility] facilities and chosen [facility]. Case Management d/c poc: [facility] re[facility] Case Management to follow. Date Signed: 01/06/2019 11:54 AM Electronically Signed By:Mabel Luevano RN [facility] CM Progress Note CM Note CM Note Notes: Discussed pt with RN and spoke with pt in the room. Pt's DC date still TBD when medically stable. Confirmed with pt that [facility] is still the plan. Updates sent to [facility]. [facility] to follow. D/C Plan: [facility] Date Signed: 01/09/2019 03:52 PM Electronically Signed By:Coreen Ellis Case Management Discharge Plan Note Case Management Discharge Discharge Order Complete? Answers: Yes Patient to Obtain Answers: Other Notes: [facility] Transportation Arranged Answers: Other Notes: w/c transport arranged by [facility]. Transport will Pick (Date 01/11/2019 02:00 PM & Time) Faxed Final Orders Answers: Yes Notes: to [facility] Agency/Facility Transfer Answers: Yes Notes: to [facility] Report Printed & Faxed to Receiving Agency Discharge Comments Notes: 01/11/2019 Case Management Note Faxed d/c orders to [facility]. RN to call report. Brinda arranged w/c transport. 1400 picker feeder. Notified RN. Case Management d/c poc: [facility] rehab. Date Signed: 01/11/2019 11:01 AM Electronically Signed By:Mabel Luevano RN Intervention Information Intervention Type:*Incorrect Registration Date of Service:12/26/2018 10:33 AM Patient Type:Inpatient Staff Member:Deysi Moreno Hours: Discipline: Severity: Comment: Intervention Type:*IM-Signed Date of Service:01/11/2019 10:15 AM Patient Type:Inpatient Staff Member:Noelle Tim Hours: Discipline: Severity: Comment:
[2019-01-11] MEDS: ONDANSETRON DISINTEGRATING 4 MG TAB PO PRN (13:33)
[2019-01-11 15:37] VITALS: BP 117/69
[2019-01-11] MEDS ORDERED: WARFARIN SODIUM 2.5 MG TAB PO SCH (16:00)
[2019-01-11] MEDS ORDERED: WARFARIN SODIUM 2.5 MG TAB PO ONE (16:00)
[2019-01-11] MEDS ORDERED: PANTOPRAZOLE SODIUM 40 MG TAB PO SCH (21:00)
--- NOTE | 2019-01-15 21:44 | CPEKG ---
Test Reason : OPEN Blood Pressure : / mmHG Vent. Rate : 076 BPM Atrial Rate : 181 BPM P-R Int : 216 ms QRS Dur : 150 ms QT Int : 447 ms P-R-T Axes : 000 060 045 degrees QTc Int : 503 ms Ventricular-paced rhythm Confirmed by Mateus Glass ([id number]) on 01/15/2019 9:43:11 PM Referred By: Mateus Ly Confirmed By:Mateus Glass
--- NOTE | 2019-01-15 21:54 | CPEKG ---
Test Reason : OPEN Blood Pressure : / mmHG Vent. Rate : 072 BPM Atrial Rate : 000 BPM P-R Int : 130 ms QRS Dur : 145 ms QT Int : 445 ms P-R-T Axes : 000 139 -26 degrees QTc Int : 488 ms Afib/flut and V-paced complexes RBBB and LPFB premature ventricular complexes Confirmed by Mateus Glass ([id number]) on 01/15/2019 9:53:34 PM Referred By: Mateus Ly Confirmed By:Mateus Glass
--- NOTE | 2019-01-24 14:37 | GOP ---
[f rep st] OPERATIVE REPORT DATE OF OPERATION: 01/01/2019 SURGEON: Mateus Ly MD SENIOR STRATEGY MANAGER: RODERICK Zepeda PREOPERATIVE DIAGNOSIS: 1. Congestive heart failure. 2. Extreme frailty. 3. Aortic valve paravalvular leak. 4. Severe mitral regurgitation and moderately severe mitral stenosis. 5. Moderately severe tricuspid regurgitation. 6. Atrial septal defect. POSTOPERATIVE DIAGNOSIS: 1. Congestive heart failure. 2. Extreme frailty. 3. Aortic valve paravalvular leak. 4. Severe mitral regurgitation and moderately severe mitral stenosis. 5. Moderately severe tricuspid regurgitation. 6. Atrial septal defect. PROCEDURE PERFORMED: 1. Midline sternotomy with explant of a 29 mm Medtronic Evolut R TAVR valve. 2. Aortic valve replacement with a 23 mm Magna Ease bioprosthesis. 3. Explant of 2 MitraClips. 4. Mitral valve replacement with a 29 mm Magna Ease bioprosthesis. 5. Tricuspid valve repair with a 28 mm MC3 ring. 6. Closure of atrial septal defect. 7. Ligation of the left atrial appendage. FINDINGS: INDICATIONS: The patient is an 83-year-old gentleman with cardiomyopathy and multivalvular heart dis ease, who is in congestive heart failure. He was recommended to undergo surgical valve replacement. DESCRIPTION OF PROCEDURE: Patient was taken to the operating room, placed on the operating table in supine position. After induction of general anesthesia and single-lumen endotracheal tube intubation , patient was prepped and draped sterilely. A standard median sternotomy was performed and the patie nt was fully heparinized. He was cannulated with a size 8.0 Soft-Flow aortic cannula as well as 24-F rench and 28-Polish SVC and IVC cannulas. Cardiopulmonary bypass was instituted. The crossclamp was applied and the heart was arrested with 1 L of [place] solution. We opened the aorta and explanted the 29 mm Evolut R valve. We resected the aortic leaflets and sized this to a 23 mm Magna bioprosth esis. Pledgeted sutures were placed along the non coronary cusp of the valve and attention was next directed at the mitral valve. A left atriotomy was performed and the valve was inspected. Two Mireya Clips were present. There was extensive calcification of the mitral valve. The mitral valve itself was excised and explanted with the [address]. This was sized to a 29 mm Magna bioprosthesis. Sutures were placed around the anulus with pledgets on the ventricular side and a 29 mm bioprostheti c bovine pericardial mitral valve was seated without difficulty. The left atrium was then closed. A ttention was redirected at the aortic valve. The remainder of the sutures were placed around the stephanie tyrese, the 23 mm Magna valve was seated without difficulty, and the aorta was closed. The left atrial appendage was ligated with a double ligature. The right atrium was then opened and the tricuspid paulino ve was repaired with a 28 mm MC3 ring. Once the annuloplasty had been completed, we closed the atria l septal defect, and then the right atrium was closed and the crossclamp was removed. The patient wa s then from cardiopulmonary bypass and once off bypass, the transesophageal echo showed nor dorina functioning valves in the aortic, tricuspid, and mitral positions. The protamine was administe red next. Three chest tubes as well as atrial and ventricular pacing wires were also placed. Once t he chest was closed, we then closed the sternum with #6 stainless steel wires. Subcutaneous tissue a nd skin were closed with running Vicryl suture. The patient was returned to the ICU in critical cond ition. /[id number]/MODL
== END 2019-01-11 14:10 | DRG 219 ==
LOC: INTOOBSV 18:07 → F2W 19:38 → OBSVTOIN 12-27 13:42 → F2N 01-01 08:30 → F2W 01-03 12:25
PROVIDERS: ADMIT Family Medicine; ATTEND Thoracic Surgery (Cardiothoracic Vascular Surgery)
PROC: B245ZZ4 Ultrasonography of Left Heart, Transesophageal (ICD-10-PCS; 2018-12-29)
PROC: 30233R1 Transfusion of Nonautologous Platelets into Peripheral Vein, Percutaneous Approach (ICD-10-PCS; 2019-01-01)
PROC: 30233N1 Transfusion of Nonautologous Red Blood Cells into Peripheral Vein, Percutaneous Approach (ICD-10-PCS; 2019-01-01)
PROC: 02RF08Z Replacement of Aortic Valve with Zooplastic Tissue, Open Approach (ICD-10-PCS; principal; 2019-01-01 10:11)
PROC: 5A1221Z Performance of Cardiac Output, Continuous (ICD-10-PCS; principal; 2019-01-01 10:11)
PROC: 02UJ0JZ Supplement Tricuspid Valve with Synthetic Substitute, Open Approach (ICD-10-PCS; principal; 2019-01-01 10:11)
PROC: 02RG08Z Replacement of Mitral Valve with Zooplastic Tissue, Open Approach (ICD-10-PCS; principal; 2019-01-01 10:11)
PROC: 02L70ZK Occlusion of Left Atrial Appendage, Open Approach (ICD-10-PCS; principal; 2019-01-01 10:11)
PROC: 30233L1 Transfusion of Nonautologous Fresh Plasma into Peripheral Vein, Percutaneous Approach (ICD-10-PCS; 2019-01-01 10:11)
DX: I13.0 Hypertensive heart and chronic kidney disease with heart failure and stage 1 through stage 4 chronic kidney disease, or unspecified chronic kidney disease (principal); I50.33 Acute on chronic diastolic (congestive) heart failure; N17.9 Acute kidney failure, unspecified; T81.19XA Other postprocedural shock, initial encounter; D62 Acute posthemorrhagic anemia; I48.92 Unspecified atrial flutter; I08.1 Rheumatic disorders of both mitral and tricuspid valves; N18.3 Chronic kidney disease, stage 3 (moderate); I48.91 Unspecified atrial fibrillation; I27.20 Pulmonary hypertension, unspecified; G47.30 Sleep apnea, unspecified; M10.9 Gout, unspecified; G47.00 Insomnia, unspecified; Z95.3 Presence of xenogenic heart valve; Z87.891 Personal history of nicotine dependence
CPT/HCPCS: 71046-PO; 82435-PO; 82565-PO; 82947-PO; 83605-ER; 84132-PO; 84295-PO; 84484-ER; 84520-PO; 85014-ER; 92526-GN; 92610-GN; 97116-GP; 97162-GP; 97166-GO; 97530-GO; 97530-GP; 97535-GO; G0378; J0153; J0282; J0690; J1250; J1265; J1644; J1650; J1815; J1940; J2001; J2150; J2250; J2260; J2270; J2370; J2405; J2704; J2720; J2930; J3010; J3475; J3480; P9016; P9017; P9021; P9035; P9041; P9073; Q9967

== ENCOUNTER → 2018-12-26 | Outpatient (CLI) | payer OTHER, MEDICARE | LOC: CIMAGING 14:54 | PROVIDERS: ATTEND Family Medicine | DX: R05 Cough (principal); Q25.3 Supravalvular aortic stenosis; I34.0 Nonrheumatic mitral (valve) insufficiency; I38 Endocarditis, valve unspecified; Z95.3 Presence of xenogenic heart valve | CPT/HCPCS: 71046-PO ==

== ENCOUNTER → 2019-01-23 | Outpatient (CLI) | payer OTHER, MEDICARE | LOC: FIMAGING 09:31 | PROVIDERS: ATTEND Thoracic Surgery (Cardiothoracic Vascular Surgery) | DX: J90 Pleural effusion, not elsewhere classified (principal); J98.11 Atelectasis; I51.7 Cardiomegaly; Z98.890 Other specified postprocedural states; Z95.5 Presence of coronary angioplasty implant and graft ==

== ENCOUNTER → 2019-04-04 | Outpatient (CLI) | payer OTHER, MEDICARE | LOC: BHCLAF 13:15 | PROVIDERS: ATTEND Internal Medicine Cardiovascular Disease | DX: Q25.3 Supravalvular aortic stenosis (principal); I50.32 Chronic diastolic (congestive) heart failure; Z95.2 Presence of prosthetic heart valve | CPT/HCPCS: 93306-PO ==